=== PATIENT | female | born 1930 | race Caucasian/White ===

== ENCOUNTER → 2016-07-24 | Outpatient (CLI) | payer MEDICARE, BC, MEDICAID ==
--- NOTE | 2016-07-24 13:44 | WOMENS IMAGING REPORT ---
EXAM DESCRIPTION: BONE DENSITY HIP/SPINE COMPLETED DATE/TIME: 07/24/2016 1:33 pm REASON FOR STUDY: M81.0 OSTEO M81.0 AGE-RELATED OSTEOPOROSIS W/O CURRENT PATHOLOGICAL FRAC F02.80 DEMENTIA IN OTH DISEASES CLASSD ELSWHR W/O BEHAVRL DI COMPARISON: 04/22/2011. TECHNIQUE: Dual-Energy X-ray Absorptiometry (DEXA) of the AP Spine and Hip. LIMITATIONS: None. FINDINGS: LUMBAR SPINE: The bone mineral density (BMD) measured from L1-L4 in the AP projection correlates with a T-score of -2.0, which is osteopenia as defined by the World Health Organization. HIP: The bone mineral density (BMD) measured in the left hip correlates with a T-score of -3.2, which is o steoporosis as defined by the World Health Organization. COMMENT: The World Health Organization defines low BMD as follows: T-score: Normal: Greater than -1.0 Osteopenia: Between -1.0 and -2.5 Osteoporosis: Less than -2.5 without fractures Established osteoporosis: Less than -2.5 with fractures In general, you may wish to consider: Diagnosis Treatment Follow-up DEXA Normal BMD Prevention 2-3 years Osteopenia Prevention/Therapy 1-2 years Osteoporosis Therapy Yearly TECHNICAL DOCUMENTATION: JOB ID: [id number]- All Rights Reserved
== END ==
LOC: WI 12:02
PROVIDERS: ATTEND Family Medicine
DX: F02.80 Dementia in other diseases classified elsewhere, unspecified severity, without behavioral disturbance, psychotic disturbance, mood disturbance, and anxiety (principal); M81.0 Age-related osteoporosis without current pathological fracture
CPT/HCPCS: 70551; 77080

== ENCOUNTER → 2017-04-15 | Outpatient (CLI) | payer MEDICARE, BC, MEDICAID ==
--- NOTE | 2017-04-15 16:18 | RADIOLOGY REPORT (SQ) ---
EXAM DESCRIPTION: KNEE RIGHT 4 VIEWS COMPLETED DATE/TIME: 04/15/2017 3:52 pm REASON FOR STUDY: PAIN IN RIGHT KNEE M25.561 PAIN IN RIGHT KNEE COMPARISON: None. NUMBER OF VIEWS: Four views. TECHNIQUE: AP, lateral, and both oblique radiographic images acquired of the right knee. LIMITATIONS: None. FINDINGS: MINERALIZATION: Osteopenia. BONES: No acute fracture or dislocation. No worrisome bone lesions. JOINT: Joint space narrowing all 3 compartments. No effusion. SOFT TISSUES: No soft tissue swelling. No radio-opaque foreign body. OTHER: No other significant finding. IMPRESSION: No acute findings. Osteoarthritis. TECHNICAL DOCUMENTATION: JOB ID: [id number] [employer]- All Rights Reserved
== END ==
LOC: OD 15:21
PROVIDERS: ATTEND Family Medicine
DX: M25.561 Pain in right knee (principal)

== ENCOUNTER 2017-04-21 12:29 | Emergency (ER) | payer MEDICARE, BC, MEDICAID ==
--- NOTE | 2017-04-21 14:27 | RADIOLOGY REPORT (SQ) ---
EXAM DESCRIPTION: HIP RIGHT AP/LATERAL COMPLETED DATE/TIME: 04/21/2017 2:08 pm REASON FOR STUDY: fall COMPARISON: Right hip films 01/02/2014 AP pelvis film 02/16/2007 NUMBER OF VIEWS: Two views. TECHNIQUE: AP pelvis and additional frog-leg view of the right hip. LIMITATIONS: None. FINDINGS: MINERALIZATION: Osteopenic RIGHT HIP: No acute fracture or malalignment. Mild chondrocalcinosis at the right hip joint. No sig nificant joint space narrowing. No bulky bony spurring. LEFT HIP: No fracture or dislocation. No worrisome bone lesions. PUBIS AND ISCHIUM: No fracture. PELVIS: No fracture. SACRUM: No fracture or dislocation. No worrisome bone lesions. LOWER LUMBAR SPINE: Disc space loss of height at L4-5 and L5-S1 SOFT TISSUES: Fat necrosis or injection granuloma left buttock projected over the left hip joint spac e. 12.5 cm calcified uterine fibroid OTHER: No other significant finding. IMPRESSION: Bones osteopenic. No acute fracture right hip or hemipelvis. TECHNICAL DOCUMENTATION: JOB ID: [id number]- All Rights Reserved
--- NOTE | 2017-04-21 14:30 | RADIOLOGY REPORT (SQ) ---
EXAM DESCRIPTION: KNEE RIGHT 3 VIEWS COMPLETED DATE/TIME: 04/21/2017 2:08 pm REASON FOR STUDY: fall COMPARISON: None. NUMBER OF VIEWS: Three views. TECHNIQUE: AP, lateral, and sunrise patella radiographic images acquired of the right knee. LIMITATIONS: None. FINDINGS: MINERALIZATION: Osteopenic BONES: No acute fracture or dislocation. No worrisome bone lesions. JOINT: No effusion. SOFT TISSUES: No soft tissue swelling. No radio-opaque foreign body. OTHER: No other significant finding. IMPRESSION: NEGATIVE STUDY OF THE RIGHT KNEE. NO RADIOGRAPHIC EVIDENCE OF ACUTE INJURY. TECHNICAL DOCUMENTATION: JOB ID: [id number] [employer]- All Rights Reserved
--- NOTE | 2017-04-21 14:47 | ER Document Report ---
ED Fall - General Chief Complaint: Fall Injury Stated Complaint: RIGHT KNEE PAIN Time Seen by Provider: 04/21/17 13:05 Notes: Patient fell this morning landing on her right hip. She was able to stand with assistance and take a step or 2, but it was obvious that she had too much pain to continue so the family brought her here to be checked. She has had chronic problem with the right knee and was scheduled to see Dr. Robles this afternoon. Family is here with the patient is answering questions because the patient has some moderate to severe dementia and is unable to answer accurately for herself. Patient's family says that she did not hit her head and no loss of consciousness. The fall was witnessed. No apparent breathing difficulty or rib pains. No abdominal pains. No back pain. TRAVEL OUTSIDE OF THE [place] IN LAST 30 DAYS: No - Related data Allergies/Adverse Reactions: No Known Allergies Allergy (Verified 04/21/17 12:40) Home Medications: Current Home Medications Diclofenac Sodium [Diclofenac Sodium] 4 gm TOP QID 04/21/17 [History] Metoprolol Tartrate [Lopressor 25 mg Tablet] 25 mg PO Q12 04/21/17 [History] [place]-3 Fatty Acids/Fish Oil [Fish Oil 1,000 mg Capsule] 1,000 mg PO DAILY 04/21 [History] Past Medical History - Social History Smoking Status: Never Smoker Frequency of alcohol use: None Drug Abuse: None Family History: Reviewed & Not Pertinent - Past Medical History Cardiac Medical History: Reports: Hx Hypertension - CONTROLLED Neurological Medical History: Reports: Other - Dementia. Denies: Hx Cerebrovascular Accident, Hx Seizures Endocrine Medical History: Denies: Hx Diabetes Mellitus Type 2 GI Medical History: Denies: Hx Hepatitis, Hx Hiatal Hernia, Hx Ulcer Infectious Medical History: Denies: Hx Hepatitis Past Surgical History: Reports: Hx Mastectomy - LUMPECTOMY NO RESTRICTIONS. Denies: Hx Open Heart Surgery, Hx Pacemaker Review of Systems - Review of Systems Constitutional: denies: Fever Cardiovascular: denies: Chest pain, Dizziness Respiratory: denies: Cough, Hurts to breathe, Short of breath Gastrointestinal: denies: Abdominal pain, Nausea, Vomiting Musculoskeletal: See HPI Skin: No symptoms reported Neurological/Psychological: Confusion, Dementia Physical Exam - Vital signs Vitals: Temp Pulse Resp BP Pulse Ox 98.3 F 51 L 20 121/66 97 04/21/17 12:40 04/21/17 12:40 04/21/17 12:40 04/21/17 12:40 04/21/17 12:40 Interpretation: Normal - Notes Notes: PHYSICAL EXAMINATION: GENERAL: Well-appearing, in no acute distress. Resting comfortably sitting on the stretcher. HEAD: Atraumatic, normocephalic. NECK: Normal range of motion, supple. No posterior tenderness. No tenderness to move the head and neck in either direction. LUNGS: Breath sounds clear and equal bilaterally. No rib tenderness. HEART: Regular rate and rhythm without murmurs. ABDOMEN: Soft, nontender. No guarding or rebound. BACK: No tenderness throughout entire back. EXTREMITIES: Patient has tenderness over the right greater trochanter and somewhat back into the right buttock region. No pelvic tenderness.. NEUROLOGICAL: Patient cannot follow commands so it is difficult to assess her neurologic function. She is awake and alert, but does not answer questions just shakes her head yes frequently. Unable to follow commands. Moves all 4 extremities without any difficulty. Grossly intact neurological exam. SKIN: Warm, dry, no rashes. Course - Re-evaluation Re-evalutation: 04/21/17 14:37 X-rays are without acute findings. - Vital Signs Vital signs: Temp Pulse Resp BP Pulse Ox 98.5 F 68 16 129/76 H 100 04/21/17 14:50 04/21/17 14:50 04/21/17 14:50 04/21/17 14:50 04/21/17 14:50 - Diagnostic Test Radiology results interpreted by me: 04/21/17 14:37 X-ray of the right hip and the right pelvis show no fractures or dislocations. X-ray of the right knee shows arthritic changes but no other significant findings. Discharge - Discharge Clinical Impression: Contusion of right hip Condition: Stable Disposition: HOME, SELF-CARE Additional Instructions: CONTUSION Right Hip: Your injury has resulted in a contusion -- a crushing of the deep tissues. No injury to important structures was detected during the physician's exam. Contusions vary in the amount of pain they cause, and in the length of time required for healing. Typically, the area will become bruised, and will remain painful to touch for two or three weeks. However, most patients are back to working and playing within a few days. After the initial period of rest and cold-packs, your symptoms (together with the doctor's recommendations) will determine how rapidly you can get back to full activity. Usually this means "do what feels okay, but don't do things that hurt." If re-examination was recommended, it's important to follow up as instructed. Call the doctor or return any time if pain increases, if swelling becomes severe, if you develop numbness or weakness in an injured extremity, or if any other alarming symptoms occur. USE OF TYLENOL (ACETAMINOPHEN): Acetaminophen may be taken for pain relief or fever control. It's much safer than aspirin, offering a wider range of "safe" dosages. It is safe during . Some brand names are Tylenol, Panadol, Datril, Anacin 3, Tempra, and Liquiprin. Acetaminophen can be repeated every four hours. The following are maximum recommended dosages: WEIGHT Dose Drops Elixir Chewable( 80mg) (LBS.) drprs=droppers tsp=teaspoon >89 pounds or adults 650 mg to 900 mg Acetaminophen can be repeated every four hours. Maximum dose not to exceed 4000 mg a day. These maximum recommended dosages are slightly higher than the dosages written on the product container, but these dosages are very safe and below the toxic dosage for acetaminophen. Keep your appointment to be seen about your right knee and they can check your right hip as well. FOLLOW-UP CARE: If you have been referred to a physician for follow-up care, call the physician s office for an appointment as you were instructed or within the next two days. If you experience worsening or a significant change in your symptoms, notify the physician immediately or return to the Emergency Department at any time for re-evaluation. Referrals: DIANE ROBLES MD [Primary Care Provider] - Follow up as needed
[2017-04-21 14:51] VITALS: BP 129/76
== END 2017-04-21 14:55 | disposition home or self-care (01) ==
LOC: ER 12:29
DX: S70.01XA Contusion of right hip, initial encounter (principal); W19.XXXA Unspecified fall, initial encounter; M25.561 Pain in right knee; F03.90 Unspecified dementia, unspecified severity, without behavioral disturbance, psychotic disturbance, mood disturbance, and anxiety; I10 Essential (primary) hypertension
CPT/HCPCS: 99283

== ENCOUNTER → 2017-06-25 | Outpatient (CLI) | payer MEDICARE, BC, MEDICAID ==
--- NOTE | 2017-06-25 18:14 | RADIOLOGY REPORT (SQ) ---
EXAM DESCRIPTION: CHEST PA/LATERAL COMPLETED DATE/TIME: 06/25/2017 5:34 pm REASON FOR STUDY: CHEST PAIN, UNSPECIFIED COMPARISON: None. EXAM PARAMETERS: NUMBER OF VIEWS: two views TECHNIQUE: Digital Frontal and Lateral radiographic views of the chest acquired. RADIATION DOSE: NA LIMITATIONS: none FINDINGS: LUNGS AND PLEURA: No consolidation, masses or pneumothorax. No pleural effusion. MEDIASTINUM AND HILAR STRUCTURES: Small hiatus hernia. HEART AND VASCULAR STRUCTURES: Heart upper limits of normal size. No evidence for failure. BONES: No acute findings. HARDWARE: None in the chest. OTHER: No other significant finding. IMPRESSION: No acute findings. TECHNICAL DOCUMENTATION: JOB ID: [id number] [place]-72 2010 [employer]- All Rights Reserved
[2017-06-25 18:17] LABS: ABSOLUTE BASOPHILS # (AUTO) 0.1 10^3/uL (0.0-0.2); ABSOLUTE EOSINOPHILS # (AUTO) 0.3 10^3/uL (0.0-0.6); ABSOLUTE LYMPHOCYTES (AUTO) 3.3 10^3/uL (0.5-4.7); ABSOLUTE MONOCYTES (AUTO) 0.9 10^3/uL (0.1-1.4); ABSOLUTE NEUT (AUTO) 5.7 10^3/uL (1.7-8.2); BASOPHILS % (AUTO) 0.6 % (0-2); EOSINOPHILS % (AUTO) 2.8 % (0-6); HEMATOCRIT 38.8 % (36.0-47.0); HEMOGLOBIN 12.9 g/dL (12.0-15.5); LYMPHOCYTES % (AUTO) 32.7 % (13-45); MEAN CORPUSCULAR HEMOGLOBIN 30.2 pg (27.0-33.4); MEAN CORPUSCULAR HGB CONC 33.2 g/dL (32.0-36.0); MEAN CORPUSCULAR VOLUME 91 fl (80-97); MONOCYTES % (AUTO) 8.5 % (3-13); PLATELET COUNT 334 10^3/uL (150-450); RED BLOOD COUNT 4.26 10^6/uL (3.72-5.28); RED CELL DISTRIBUTION WIDTH 13.6 % (11.5-14.0); SEGMENTED NEUTROPHILS % (AUTO) 55.4 % (42-78); TOTAL CELLS COUNTED % (AUTO) 100 %; WHITE BLOOD COUNT 10.2 10^3/uL (4.0-10.5)
--- NOTE | 2017-06-25 18:17 | RADIOLOGY REPORT (SQ) ---
EXAM DESCRIPTION: RIBS RIGHT W/O PA CHEST COMPLETED DATE/TIME: 06/25/2017 5:34 pm REASON FOR STUDY: CHEST PAIN, UNSPECIFIED R07.9 CHEST PAIN, UNSPECIFIED COMPARISON: None. NUMBER OF VIEWS: 2 TECHNIQUE: Images acquired of the right ribs in the area of focal concern. LIMITATIONS: None. FINDINGS: RIBS: No acute displaced fracture. No worrisome bone lesions. LUNGS: No pneumothorax. No pleural effusion. OTHER: No other significant finding. IMPRESSION: NO ACUTE DISPLACED RIB FRACTURE. COMMENT: SITE OF TRAUMA/COMPLAINT MARKED/STAMP COMPLETED: No TECHNICAL DOCUMENTATION: JOB ID: [id number] [place]-72 2010 [employer]- All Rights Reserved
[2017-06-25 18:34] LABS: ALANINE AMINOTRANSFERASE 19 U/L (9-52); ALBUMIN 4.7 g/dL (3.5-5.0); ALKALINE PHOSPHATASE 79 U/L (38-126); ANION GAP 15 (5-19); ASPARTATE AMINO TRANSFERASE 25 U/L (14-36); BILIRUBIN,DIRECT 0.3 mg/dL (0.0-0.4); BILIRUBIN,TOTAL 0.3 mg/dL (0.2-1.3); BLOOD UREA NITROGEN 21 mg/dL (7-20); CARBON DIOXIDE 27 mmol/L (22-30); CHLORIDE 101 mmol/L (98-107); GLUCOSE 75 mg/dL (75-110); POTASSIUM 4.3 mmol/L (3.6-5.0); SODIUM 142.6 mmol/L (137-145); TOTAL PROTEIN 8.5 g/dL (6.3-8.2)
== END ==
LOC: OD 16:54
PROVIDERS: ATTEND Physician Assistant
DX: R07.9 Chest pain, unspecified (principal)
CPT/HCPCS: 36415; 71020; 80053; 85025; 85379

== ENCOUNTER → 2017-06-26 | Outpatient (CLI) | payer MEDICARE, BC, MEDICAID ==
--- NOTE | 2017-06-26 11:12 | RADIOLOGY REPORT (SQ) ---
EXAM DESCRIPTION: NM LUNG VENT/PERF SCAN COMPLETED DATE/TIME: 06/26/2017 10:57 am REASON FOR STUDY: R79.89 OTHER SPECIFIED ABNORMAL FINDINGS OF BLOOD CHEMISTRY R79.89 OTHER SPECIFIE D ABNORMAL FINDINGS OF BLOOD CHEMISTRY COMPARISON: Chest and rib detail films 06/25/2017 RADIONUCLIDE AND DOSE: 5.5 millicuries TC-99m MAA Intravenous 32.4 millicuries TC-99m DTPA Inhaled aerosol TECHNIQUE: Eight views of the lungs acquired post ventilation of DTPA aerosol. Eight matching views of the lungs acquired following injection of MAA. LIMITATIONS: None. FINDINGS: VENTILATION: Symmetric and homogeneous distribution of DTPA aerosol during ventilatory pha se. No significant areas of photopenia. There is clumping of activity in the carlton, and some swallow ed activity in the esophagus and small bowel PERFUSION: Perfusion images with normal homogenous activity and no wedge-shaped or segmental defects. No ventilation-perfusion mismatches. OTHER: No other significant finding. IMPRESSION: NORMAL VENTILATION-PERFUSION LUNG SCAN. NEGATIVE FOR PULMONARY EMBOLI. TECHNICAL DOCUMENTATION: JOB ID: [id number] [employer]- All Rights Reserved
== END ==
LOC: RAD 10:21
PROVIDERS: ATTEND Physician Assistant
DX: R79.89 Other specified abnormal findings of blood chemistry (principal)
CPT/HCPCS: 78582; A9540; A9567; Q9969

== ENCOUNTER → 2017-07-30 | Outpatient (CLI) | payer MEDICARE, BC ==
--- NOTE | 2017-07-30 16:33 | RADIOLOGY REPORT (SQ) ---
EXAM DESCRIPTION: CT ABD/PELVIS NO ORAL OR IV COMPLETED DATE/TIME: 07/30/2017 10:55 am REASON FOR STUDY: GROSS HEMATURIA (R31.0) R31.0 GROSS HEMATURIA COMPARISON: None. TECHNIQUE: CT scan of the abdomen and pelvis performed without intravenous or oral contrast. Images reviewed with lung, soft tissue, and bone windows. Reconstructed coronal and sagittal MPR images revi ewed. All images stored on PACS. All CT scanners at this facility use dose modulation, iterative reconstruction, and/or weight based d osing when appropriate to reduce radiation dose to as low as reasonably achievable (ALARA). [facility]: Dose Right [facility]: CareDose [facility]: Dose Right [facility]: Teradose 4D [facility]: Smart [employer] RADIATION DOSE: CT Rad equipment meets quality standard of care and radiation dose reduction techniq ues were employed. CTDIvol: 7.5 mGy. DLP: 338 mGy-cm.mGy. LIMITATIONS: None. FINDINGS: LOWER CHEST: Chronic interstitial changes in lung bases. Coronary artery calcification. Prominent left atrium and left ventricle. NON-CONTRASTED LIVER, SPLEEN, ADRENALS: Evaluation limited by lack of IV contrast. No identified sign ificant masses. Splenic granuloma PANCREAS: No masses. No peripancreatic inflammatory changes. GALLBLADDER: No identified stones by CT criteria. No inflammatory changes to suggest cholecystitis. RIGHT KIDNEY AND URETER: Cortical scarring of the right kidney. Right kidney measures 6.7 cm in bhavin th. No renal or ureteral calculi. LEFT KIDNEY AND URETER: Cortical scarring left kidney. . Left kidney measures 7.4 cm in length. No renal or ureteral calculi. AORTA AND RETROPERITONEUM: Atherosclerotic tortuosity of the abdominal aorta and iliac vessels. No a bdominal aortic aneurysm. Atherosclerotic change origin of renal arteries. Atherosclerotic change a t origin of celiac and superior mesenteric arteries. BOWEL AND PERITONEAL CAVITY: Colonic diverticulosis. Large hiatal hernia. APPENDIX: Normal. PELVIS, BLADDER, AND ABDOMINAL WALL:Atrophic fibroid uterus. No abnormality of the urinary bladder. . BONES: Marked lumbar spondylosis with scoliosis convex right. Multilevel degenerative disc disease. OTHER: Calcified injection granuloma left buttock. IMPRESSION: Small bilateral kidneys with cortical scarring. Colonic diverticulosis. COMMENT: Quality ID # 436: Final reports with documentation of one or more dose reduction techniques (e.g., Automated exposure control, adjustment of the mA and/or kV according to patient size, use of iterative reconstruction technique) TECHNICAL DOCUMENTATION: JOB ID: [id number] [place]-69 2010 [employer]- All Rights Reserved
== END ==
LOC: RAD 10:42
PROVIDERS: ATTEND Physician Assistant
DX: R31.0 Gross hematuria (principal)
CPT/HCPCS: 74176

== ENCOUNTER → 2018-02-01 | Outpatient (CLI) | payer MEDICARE, BC ==
[2018-02-01 15:49] LABS: HEMATOCRIT 34.6 % (36.0-47.0); HEMOGLOBIN 11.3 g/dL (12.0-15.5); MEAN CORPUSCULAR HEMOGLOBIN 30.4 pg (27.0-33.4); MEAN CORPUSCULAR HGB CONC 32.8 g/dL (32.0-36.0); MEAN CORPUSCULAR VOLUME 93 fl (80-97); PLATELET COUNT 261 10^3/uL (150-450); RED BLOOD COUNT 3.73 10^6/uL (3.72-5.28); RED CELL DISTRIBUTION WIDTH 13.6 % (11.5-14.0); WHITE BLOOD COUNT 7.1 10^3/uL (4.0-10.5)
[2018-02-01 16:14] LABS: ANION GAP 13 (5-19); BLOOD UREA NITROGEN 29 mg/dL (7-20); CALCIUM 9.1 mg/dL (8.4-10.2); CARBON DIOXIDE 21 mmol/L (22-30); CHLORIDE 108 mmol/L (98-107); GLUCOSE 86 mg/dL (75-110); POTASSIUM 5.2 mmol/L (3.6-5.0); SODIUM 141.9 mmol/L (137-145)
[2018-02-03 09:33] LABS: APPEARANCE,URINE CLOUDY; BILIRUBIN,URINE NEGATIVE (NEGATIVE); COLOR,URINE YELLOW; GLUCOSE, URINE NEGATIVE (NEGATIVE); KETONES,URINE NEGATIVE (NEGATIVE); LEUKOCYTE ESTERASE,URINE LARGE (NEGATIVE); NITRITE,URINE POSITIVE (NEGATIVE); PROTEIN,URINE NEGATIVE (NEGATIVE); URINE SPECIFIC GRAVITY 1.013; UROBILINOGEN,URINE NEGATIVE mg/dL (<2.0)
== END ==
LOC: OD 14:55
PROVIDERS: ATTEND Internal Medicine Nephrology
DX: I12.9 Hypertensive chronic kidney disease with stage 1 through stage 4 chronic kidney disease, or unspecified chronic kidney disease (principal); N18.3 Chronic kidney disease, stage 3 (moderate); E87.5 Hyperkalemia; N39.0 Urinary tract infection, site not specified
CPT/HCPCS: 36415; 80048; 81001; 85027; 87086; 87088; 87186

== ENCOUNTER → 2018-02-23 | Outpatient (CLI) | payer MEDICARE, BC, MEDICAID ==
--- NOTE | 2018-02-23 16:05 | RADIOLOGY REPORT (SQ) ---
EXAM DESCRIPTION: CT HEAD WITHOUT COMPLETED DATE/TIME: 02/23/2018 3:51 pm REASON FOR STUDY: R42 DIZZINESS AND GIDDINESS R42 DIZZINESS AND GIDDINESS COMPARISON: MRI dated 07/24/2016 TECHNIQUE: Axial images acquired through the brain without intravenous contrast. Images reviewed wi th bone, brain and subdural windows. Images stored on PACS. All CT scanners at this facility use dose modulation, iterative reconstruction, and/or weight based d osing when appropriate to reduce radiation dose to as low as reasonably achievable (ALARA). [facility]: Dose Right [facility]: CareDose [facility]: Dose Right [facility]: Teradose 4D [facility]: Smart [email or web address] RADIATION DOSE: CT Rad equipment meets quality standard of care and radiation dose reduction techniq ues were employed. CTDIvol: 48.6 mGy. DLP: 905 mGy-cm.mGy. LIMITATIONS: None. FINDINGS: VENTRICLES: Prominent. CEREBRUM: No masses. No hemorrhage. No midline shift. Areas of low density in the white matter mos t likely due to chronic micro-vascular ischemic change. No evidence for acute infarction. CEREBELLUM: No masses. No hemorrhage. No alteration of density. No evidence for acute infarction. EXTRAAXIAL SPACES: Age-related involutional change. No fluid collections. No masses. ORBITS AND GLOBE: No intra- or extraconal masses. Normal contour of globe without masses. CALVARIUM: No fracture. PARANASAL SINUSES: No fluid or mucosal thickening. SOFT TISSUES: No mass or hematoma. OTHER: No other significant finding. IMPRESSION: CHRONIC CHANGES OF ATROPHY AND MICROVASCULAR ISCHEMIA. NO ACUTE PROCESS. EVIDENCE OF ACUTE STROKE: NO. TECHNICAL DOCUMENTATION: JOB ID: [id number] Quality ID # [id number]: Final reports with documentation of one or more dose reduction techniques (e.g., Au tomated exposure control, adjustment of the mA and/or kV according to patient size, use of iterative reconstruction technique) 2010 [employer]- All Rights Reserved Reading location - IP/workstation name: [email or web address]
== END ==
LOC: RAD 17:29
PROVIDERS: ATTEND Family Medicine
DX: R42 Dizziness and giddiness (principal); G31.9 Degenerative disease of nervous system, unspecified
CPT/HCPCS: 70450

== ENCOUNTER → 2018-02-24 | Outpatient (CLI) | payer MEDICARE, BC, MEDICAID ==
[2018-02-24 14:12] LABS: ABSOLUTE EOSINOPHILS # (AUTO) 0.3 10^3/uL (0.0-0.6); ABSOLUTE LYMPHOCYTES (AUTO) 1.5 10^3/uL (0.5-4.7); ABSOLUTE MONOCYTES (AUTO) 0.7 10^3/uL (0.1-1.4); ABSOLUTE NEUT (AUTO) 6.2 10^3/uL (1.7-8.2); BASOPHILS % (AUTO) 0.4 % (0-2); EOSINOPHILS % (AUTO) 3.7 % (0-6); HEMATOCRIT 37.1 % (36.0-47.0); LYMPHOCYTES % (AUTO) 17.4 % (13-45); MEAN CORPUSCULAR HEMOGLOBIN 30.1 pg (27.0-33.4); MEAN CORPUSCULAR HGB CONC 32.2 g/dL (32.0-36.0); MEAN CORPUSCULAR VOLUME 93 fl (80-97); MONOCYTES % (AUTO) 7.7 % (3-13); PLATELET COUNT 233 10^3/uL (150-450); RED BLOOD COUNT 3.97 10^6/uL (3.72-5.28); RED CELL DISTRIBUTION WIDTH 13.4 % (11.5-14.0); SEGMENTED NEUTROPHILS % (AUTO) 70.8 % (42-78); TOTAL CELLS COUNTED % (AUTO) 100 %; WHITE BLOOD COUNT 8.8 10^3/uL (4.0-10.5)
[2018-02-24 14:52] LABS: ERYTHROCYTE SEDIMENTATION RATE 41 mm/hr (0-30)
== END ==
LOC: OD 12:31
PROVIDERS: ATTEND Ophthalmology
DX: H46.01 Optic papillitis, right eye (principal)
CPT/HCPCS: 36415; 85025; 85652; 86140

== ENCOUNTER 2018-03-09 08:29 | Day surgery (SDC) | payer MEDICARE, BC, MEDICAID ==
[2018-03-08 11:20] LABS: ANION GAP 9 (5-19); BLOOD UREA NITROGEN 38 mg/dL (7-20); CALCIUM 9.2 mg/dL (8.4-10.2); CARBON DIOXIDE 26 mmol/L (22-30); CHLORIDE 106 mmol/L (98-107); GLUCOSE 113 mg/dL (75-110); POTASSIUM 3.7 mmol/L (3.6-5.0); SODIUM 141.3 mmol/L (137-145)
--- NOTE | 2018-03-08 23:02 | EKG REPORT ---
SEVERITY:- ABNORMAL ECG - SINUS BRADYCARDIA LEFT VENTRICULAR HYPERTROPHY BORDERLINE T ABNORMALITIES, INFERIOR LEADS : Confirmed by: Farhad Estrada 08-Mar-2018 23:01:17
[~2018-03-09 08:29] MED LIST: BUPIVACAINE HCL 0.5 % INJ/PF 30 ML SDV ONE; LIDOCAINE 0.5% INJ-PF (5 MG/ML) 50 ML SDV ONE; LIDOCAINE 0.5% INJ-PF (5 MG/ML) 50 ML SDV SUBCUT PRN; NORMAL SALINE 1000 ML (RENAL PATIENTS) IV PRN
[2018-03-09] MEDS ORDERED: FENTANYL CITRATE INJ/PF 100 MCG/2 ML AMPUL ONE (09:14)
[2018-03-09] MEDS ORDERED: MIDAZOLAM 2 MG/2 ML INJ ONE (09:14)
[2018-03-09] MEDS ORDERED: PROPOFOL INJ 200 MG/20 ML VIAL IV ONE (09:14)
[2018-03-09] MEDS ORDERED: PROMETHAZINE HCL INJ 25 MG/1 ML VIAL IV PRN ×2 (10:21)
[2018-03-09] MEDS ORDERED: OXYCODONE-ACETAMINOPHEN 5-325 MG TABLET PO PRN ×2 (10:21)
[2018-03-09] MEDS ORDERED: MEPERIDINE HCL/PF INJ 25 MG/1 ML DISP.SYRIN IV PRN (10:21)
[2018-03-09] MEDS ORDERED: DIPHENHYDRAMINE HCL 50 MG/ML VIAL IV PRN (10:21)
[2018-03-09] MEDS ORDERED: MORPHINE SULFATE 10 MG/ML INJ IV PRN (10:21)
[2018-03-09] MEDS ORDERED: ONDANSETRON HCL INJ/PF 4 MG/2 ML SDV IV PRN (10:21)
[2018-03-09] MEDS ORDERED: FENTANYL CITRATE INJ/PF 100 MCG/2 ML AMPUL IV PRN ×3 (10:21)
--- NOTE | 2018-03-09 11:34 | Discharge Summary ---
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 2. Hypertension Date of Surgery: 03/09/18 Discharge Date: 03/09/18 Condition: Fair Treatment or Instructions: Discharge home [after recovery per ASU criteria]. Diet,as tolerated, when fully awake advance as tolerated. Activities within moderation encouraged. Follow up in my office by appointment in about [1 week]. Call for appointment. Leave wounds [covered], [keep clean and dry, until office visit in 1 week]. Hold of on school/work [until evaluation in office]. Meds per med rec. Percocet. May shower [in 48 hrs], [try to keep operated area as dry as possible]. Prescriptions: Oxycodone HCl/Acetaminophen [Percocet 5-325 mg Tablet] 1 tab PO ASDIR PRN #5 tab PRN Reason: Referrals: DIANE ROBLES MD [Primary Care Provider] - Discharge Diet: As Tolerated Respiratory Treatments at Home: Deep Breathing/Coughing Discharge Activity: Activity As Tolerated Report the Following to Your Physician Immediately: Unusual Bleeding
--- NOTE | 2018-03-09 11:36 | Operative Report ---
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 2. 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 2. Hypertension OPERATION: Right temporal artery biopsy. SURGEON: YEHUDA KNAPP MANAGER SAS: None. ANESTHESIA: LMAC TISSUE REMOVED OR ALTERED: Portion of the right temporal artery. COMPLICATIONS: None. ESTIMATED BLOOD LOSS: 5 mL. INTRAOPERATIVE FINDINGS: Of an extremely small and tortuous temporal artery. About 2.5 cm were harvested for pathology evaluation. It proved difficult to find this temporal artery because of its small size. Use of a Doppler was of significant help. PROCEDURE: PROCEDURE: The right temporal area was prepared with [chlorhexidine] and draped out with sterile linen. After the"universal time-out", in which it was confirmed that the patient [did not need antibiotic], the procedure commenced. The patient was appropriately anesthetized. The topographic location of the temporal artery was identified using a Doppler instrument and also palpation. It was marked in ink.. A dilute solution of local anesthesia was generously infiltrated in the skin and subcutaneous tissues above and around the area. An incision was made as marked. This went through to the subcutaneous tissues. Dissection now proceeded By spreading a hemostat to reveal the artery beneath the fascia. The artery was dissected out for a distance of about 2.5 cm. Both ends were clamped. The intervening section was excised and carefully submitted for pathology in formalin. Both ends were now suture ligated using 5-0 Prolene suture The wound was now closed using [a single layer of interrupted sutures. These were of 5-0 Prolene. A sterile dressing was applied and the procedure concluded.
[2018-03-09] MEDS ORDERED: OXYCODONE-ACETAMINOPHEN 5-325 MG TABLET ONE (12:32)
[2018-03-09] MEDS ORDERED: OXYCODONE-ACETAMINOPHEN 5-325 MG TABLET PO ONE ×2 (12:35→13:45)
[2018-03-09 13:46] VITALS: BP 144/66
== END 2018-03-09 13:40 | disposition home or self-care (01) ==
LOC: OROUT 08:29
PROVIDERS: ATTEND Surgery
DX: H54.7 Unspecified visual loss (principal); I10 Essential (primary) hypertension; Z79.899 Other long term (current) drug therapy; M19.90 Unspecified osteoarthritis, unspecified site
CPT/HCPCS: 93005; 36415; 82962; 80048; 88305 ×2; 93010; 37609; J2250; J3490 ×2; J3010; A9270; J2704; 352

== ENCOUNTER 2018-03-30 12:37 | Emergency (ER) | payer MEDICARE, BC, MEDICAID ==
[2018-03-30 13:15] LABS: ABSOLUTE LYMPHOCYTES (AUTO) 0.8 10^3/uL (0.5-4.7); ABSOLUTE MONOCYTES (AUTO) 0.7 10^3/uL (0.1-1.4); ABSOLUTE NEUT (AUTO) 9.7 10^3/uL (1.7-8.2); BASOPHILS % (AUTO) 0.1 % (0-2); EOSINOPHILS % (AUTO) 0.2 % (0-6); HEMATOCRIT 38.3 % (36.0-47.0); HEMOGLOBIN 12.5 g/dL (12.0-15.5); LYMPHOCYTES % (AUTO) 7.1 % (13-45); MEAN CORPUSCULAR HEMOGLOBIN 30.8 pg (27.0-33.4); MEAN CORPUSCULAR HGB CONC 32.6 g/dL (32.0-36.0); MEAN CORPUSCULAR VOLUME 95 fl (80-97); PLATELET COUNT 155 10^3/uL (150-450); RED BLOOD COUNT 4.05 10^6/uL (3.72-5.28); RED CELL DISTRIBUTION WIDTH 14.4 % (11.5-14.0); SEGMENTED NEUTROPHILS % (AUTO) 86.6 % (42-78); TOTAL CELLS COUNTED % (AUTO) 100 %; WHITE BLOOD COUNT 11.2 10^3/uL (4.0-10.5)
[2018-03-30 13:39] LABS: ALANINE AMINOTRANSFERASE 24 U/L (9-52); ALBUMIN 3.2 g/dL (3.5-5.0); ALKALINE PHOSPHATASE 55 U/L (38-126); ANION GAP 10 (5-19); ASPARTATE AMINO TRANSFERASE 17 U/L (14-36); BILIRUBIN,DIRECT 0.4 mg/dL (0.0-0.4); BILIRUBIN,TOTAL 0.7 mg/dL (0.2-1.3); BLOOD UREA NITROGEN 33 mg/dL (7-20); CALCIUM 8.9 mg/dL (8.4-10.2); CARBON DIOXIDE 23 mmol/L (22-30); CHLORIDE 104 mmol/L (98-107); GLUCOSE 324 mg/dL (75-110); POTASSIUM 3.4 mmol/L (3.6-5.0); SODIUM 136.6 mmol/L (137-145); TOTAL PROTEIN 5.8 g/dL (6.3-8.2)
[2018-03-30] MEDS ORDERED: NORMAL SALINE 500 ML IV ONE (14:30)
[2018-03-30 15:12] LABS: APPEARANCE,URINE CLOUDY; BILIRUBIN,URINE NEGATIVE (NEGATIVE); COLOR,URINE YELLOW; GLUCOSE, URINE 150 mg/dL (NEGATIVE); KETONES,URINE NEGATIVE (NEGATIVE); LEUKOCYTE ESTERASE,URINE LARGE (NEGATIVE); NITRITE,URINE NEGATIVE (NEGATIVE); PROTEIN,URINE 100 mg/dL (NEGATIVE); TRIPLE PHOSPHATE CRYSTAL,URINE FEW /HPF; URINE SPECIFIC GRAVITY 1.015; UROBILINOGEN,URINE NEGATIVE mg/dL (<2.0)
--- NOTE | 2018-03-30 15:32 | RADIOLOGY REPORT (SQ) ---
EXAM DESCRIPTION: CT HEAD WITHOUT COMPLETED DATE/TIME: 03/30/2018 3:17 pm REASON FOR STUDY: syncope COMPARISON: 02/23/2018 TECHNIQUE: Axial images acquired through the brain without intravenous contrast. Images reviewed wi th bone, brain and subdural windows. Additional sagittal and coronal reconstructions were generated. Images stored on PACS. All CT scanners at this facility use dose modulation, iterative reconstruction, and/or weight based d osing when appropriate to reduce radiation dose to as low as reasonably achievable (ALARA). [facility]: Dose Right [facility]: CareDose [facility]: Dose Right [facility]: Teradose 4D [facility]: Smart [employer] RADIATION DOSE: CT Rad equipment meets quality standard of care and radiation dose reduction techniq ues were employed. CTDIvol: 53.2 mGy. DLP: 1017 mGy-cm. LIMITATIONS: None. FINDINGS: VENTRICLES: Prominent ventricles commensurate with the sulci. The cisterns are patent. CEREBRUM: Chronic stable small vessel ischemic changes. No masses. No hemorrhage. No midline shif t. No evidence for acute infarction. CEREBELLUM: No masses. No hemorrhage. No alteration of density. No evidence for acute infarction. EXTRAAXIAL SPACES: Age related involutional change. No fluid collections. No masses. ORBITS AND GLOBE: No intra- or extraconal masses. Normal contour of globe without masses. CALVARIUM: No fracture. PARANASAL SINUSES: No fluid or mucosal thickening. SOFT TISSUES: No mass or hematoma. OTHER: Atherosclerotic changes involving the cavernous portion of the internal carotid arteries and the intracranial portions of the vertebral arteries. Incidentally, partial empty sella. IMPRESSION: 1. No significant interval changes since the prior examination dated 02/23/2018. No acu te intracranial abnormality. 2. Atrophy and chronic spur stable small vessel ischemic changes. EVIDENCE OF ACUTE STROKE: NO. COMMENT: Quality ID # 436: Final reports with documentation of one or more dose reduction techniques (e.g., Automated exposure control, adjustment of the mA and/or kV according to patient size, use of iterative reconstruction technique) TECHNICAL DOCUMENTATION: JOB ID: [id number] [employer]- All Rights Reserved Reading location - IP/workstation name: [email or web address]
--- NOTE | 2018-03-30 15:34 | RADIOLOGY REPORT (SQ) ---
EXAM DESCRIPTION: CHEST SINGLE VIEW COMPLETED DATE/TIME: 03/30/2018 3:18 pm REASON FOR STUDY: syncope COMPARISON: 06/25/2017 EXAM PARAMETERS: NUMBER OF VIEWS: One view. TECHNIQUE: Single frontal radiographic view of the chest acquired. RADIATION DOSE: NA LIMITATIONS: None. FINDINGS: LUNGS AND PLEURA: Low lung volumes limits the examination. No acute pulmonary consolidat ion. No pneumothorax or pleural effusion. MEDIASTINUM AND HILAR STRUCTURES: No masses. Contour normal. HEART AND VASCULAR STRUCTURES: Heart normal in size. Normal vasculature. BONES: No acute findings. HARDWARE: None in the chest. OTHER: Stable small hiatal hernia. IMPRESSION: 1. Low lung volumes limits examination. No acute findings. TECHNICAL DOCUMENTATION: JOB ID: [id number] [employer]- All Rights Reserved Reading location - IP/workstation name: [email or web address]
[2018-03-30] MEDS ORDERED: CEFTRIAXONE INJ 1000 MG VIAL IV ONE (15:46)
--- NOTE | 2018-03-30 17:36 | ER Document Report ---
ED General - General Chief Complaint: Syncope Stated Complaint: WEAKNESS Time Seen by Provider: 03/30/18 14:20 TRAVEL OUTSIDE OF THE [place] IN LAST 30 DAYS: No - HPI Patient complains to provider of: Syncope Notes: Patient coming in for syncopal episode. 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 Patient has a history of chronic UTIs along with current treatment of temporal arteritis with high-dose steroids. States that the patient has an appointment is see her PCP today because of elevated blood sugars however is not here in ER instead otherwise states no changes in her routine earlier this morning no changes in days no fevers no chills no nausea no vomiting no diarrhea. Patient is baseline upon my evaluation according to family members patient according to family members looks much better since being here in the ER. - Related Data Allergies/Adverse Reactions: No Known Allergies Allergy (Verified 03/08/18 09:38) Past Medical History - Social History Smoking Status: Unknown if Ever Smoked Family History: Reviewed & Not Pertinent Patient has suicidal ideation: No Patient has homicidal ideation: No - Past Medical History Cardiac Medical History: Reports: Hx Hypertension - CONTROLLED Denies: Hx Heart Attack Pulmonary Medical History: Denies: Hx Asthma, Hx Bronchitis, Hx COPD, Hx Pneumonia Neurological Medical History: Denies: Hx Cerebrovascular Accident, Hx Seizures Endocrine Medical History: Reports: Hx Diabetes Mellitus Type 2 Renal/ Medical History: Denies: Hx Peritoneal Dialysis GI Medical History: Denies: Hx Hepatitis, Hx Hiatal Hernia, Hx Ulcer Infectious Medical History: Denies: Hx Hepatitis Past Surgical History: Reports: Hx Mastectomy - LUMPECTOMY NO RESTRICTIONS. Denies: Hx Open Heart Surgery, Hx Pacemaker - Immunizations Hx Diphtheria, Pertussis, Tetanus Vaccination: No Hx Pneumococcal Vaccination: 03/29/17 Review of Systems - Review of Systems -: Yes ROS unobtainable due to patient's medical condition - History of dementia Physical Exam - Vital signs Vitals: Resp Pulse Ox 20 97 03/30/18 12:58 03/30/18 12:58 Interpretation: Normal - General General appearance: Appears well, Alert - HEENT Head: Normocephalic, Atraumatic Eyes: Normal Pupils: PERRL - Respiratory Respiratory status: No respiratory distress Chest status: Nontender Breath sounds: Normal Chest palpation: Normal - Cardiovascular Rhythm: Regular Heart sounds: Normal auscultation Murmur: No - Abdominal Inspection: Normal Distension: No distension Bowel sounds: Normal Tenderness: Nontender Organomegaly: No organomegaly - Back Back: Normal, Nontender - Extremities General upper extremity: Normal inspection, Nontender, Normal color, Normal ROM , Normal temperature General lower extremity: Normal inspection, Nontender, Normal color, Normal ROM , Normal temperature, Normal weight bearing. No: Lito's sign - Neurological Neuro grossly intact: Yes Cognition: Confused [place] Coma Scale Eye Opening: Spontaneous [place] Coma Scale Verbal: Confused [place] Coma Scale Motor: Obeys Commands [place] Coma Scale Total: 14 Speech: Normal Motor strength normal: LUE, RUE, LLE, RLE - Psychological Associated symptoms: Normal affect, Normal mood - Skin Skin Temperature: Warm Skin Moisture: Dry Skin Color: Normal Course - Re-evaluation Re-evalutation: 03/30/18 21:13 Urinalysis does show signs of urinary tract infection. Patient was given a dose of Rocephin will send patient home with Keflex. Elevated blood sugars with no signs of metabolic derangement. Patient's case was discussed with PCP recommend follows up in his office tomorrow. Family agrees with this plan patient will be discharged home - Vital Signs Vital signs: Temp Pulse Resp BP Pulse Ox 16 152/52 H 98 03/30/18 18:01 03/30/18 18:01 03/30/18 18:01 - Laboratory Result Diagrams: 03/30/18 12:57 03/30/18 12:57 Laboratory results interpreted by me: 03/30/18 03/30/18 03/30/18 12:57 12:57 14:46 WBC 11.2 H RDW 14.4 H Seg Neutrophils % 86.6 H Lymphocytes % 7.1 L Absolute Neutrophils 9.7 H Sodium 136.6 L Potassium 3.4 L BUN 33 H Creatinine 1.73 H Est GFR ( Amer) 34 L Est GFR (Non-Af Amer) 28 L Glucose 324 H Total Protein 5.8 L Albumin 3.2 L Urine Protein 100 H Urine Glucose (UA) 150 H Urine Blood SMALL H Ur Leukocyte Esterase LARGE H Discharge - Discharge Clinical Impression: Hyperglycemia Syncope Qualifiers: Syncope type: unspecified Qualified Code(s): R55 - Syncope and collapse UTI (urinary tract infection) Qualifiers: Urinary tract infection type: urethritis Qualified Code(s): N34.2 - Other urethritis Condition: Good Disposition: HOME, SELF-CARE Instructions: Cephalexin ([facility]), Syncopal Episode ([facility]), Urinary Tract Infection ([facility]) Additional Instructions: Laboratory studies show signs of urinary tract infection elevated blood sugars more likely due to your recent steroid use. I discussed your case with your primary care physician we will start you on antibiotic Keflex please have this antibiotic filled. Take as directed. Dr. Robles requested she follow-up in his office tomorrow I would suggest calling his office earlier in the morning and explained that she would need to be worked in for an exact time. Return to ER symptoms worsen please make sure the patient drinks plenty water stay well- hydrated Prescriptions: Cephalexin Monohydrate [Keflex 500 mg Capsule] 500 mg PO QID #28 capsule Referrals: DIANE ROBLES MD [Primary Care Provider] - Follow up tomorrow
[2018-03-30 19:01] VITALS: BP 152/52
--- NOTE | 2018-03-30 19:40 | EKG REPORT ---
SEVERITY:- ABNORMAL ECG - SINUS RHYTHM LVH WITH SECONDARY REPOLARIZATION ABNORMALITY : Confirmed by: Farhad Estrada 30-Mar-2018 19:38:51
== END 2018-03-30 19:02 | disposition home or self-care (01) ==
LOC: ER 12:37
DX: E11.65 Type 2 diabetes mellitus with hyperglycemia (principal); R55 Syncope and collapse; N34.2 Other urethritis; R53.1 Weakness; I10 Essential (primary) hypertension
CPT/HCPCS: 93005; 99285; 51701; 96365; 36415; 87086; 85025; 87088; 80053; 81001; 87186; 71045; 70450; 93010; J0696

== ENCOUNTER 2018-04-20 10:48 | Inpatient (IN) | payer MEDICARE, BC, MEDICAID ==
[2018-04-20] MEDS ORDERED: ACETAMINOPHEN 325 MG TABLET PO PRN (11:00)
[2018-04-20] MEDS ORDERED: DEXTROSE 50%-WATER 25 GM/50 ML DISP.SYRIN IV PRN ×2 (11:06)
[2018-04-20] MEDS ORDERED: DEXTROSE 40% GEL 15 GM TUBE PO PRN ×2 (11:06)
[2018-04-20] MEDS ORDERED: GLUCAGON,HUMAN RECOMB 1 MG INJ IM PRN (11:06)
[2018-04-20] MEDS ORDERED: CEFTRIAXONE 1 GM/D5W RTU 1 GM/50 ML RTUPB IV SCH (12:00)
[2018-04-20] MEDS ORDERED: TRAMADOL HCL 50 MG TABLET PO PRN (12:14)
--- NOTE | 2018-04-20 12:14 | PDOC H&P ---
History of Present Illness Admission Date/PCP: 04/20/18 10:48 DIANE ROBLES MD Patient complains of: Weakness History of Present Illness: YSABEL CHEEMA is a 87 year old female This is a 87-year-old female's with a significant history of the dementia coming since last several months history of the hypertensions chronic kidney disease currently see Dr. 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 seen by the rn interventional initially started on the high-dose of the steroidAnd patient had a temporal artery biopsy was done was also negative's patient was referred to the neuro-rn interventional and [facility] which patient saw last week and it did use the tapering steroid According to the son once the patient's steroid was increase in the beginning patients more getting weaker now patient's blood sugar was running high and started on a Tradjenta and sliding scale and getting better but patient is getting more weak and weak Also significant history of the recurrent urinary tract infections and worsening the dementia patients since last several days unable to stand up and unable to walk and not feeling well and more confused and the patient was brought to the my office by her son and at this point decided to admit to the hospital for possible UTI weakness possible from the steroid effect versus recent stroke Past Medical History Cardiac Medical History: Reports: Hypertension - CONTROLLED Denies: Myocardial Infarction Pulmonary Medical History: Denies: Asthma, Bronchitis, Chronic Obstructive Pulmonary Disease (COPD), Pneumonia Neurological Medical History: Denies: Seizures Endocrine Medical History: Reports: Diabetes Mellitus Type 2 Renal/ Medical History: Reports: Chronic Kidney Disease GI Medical History: Reports: Gastroesophageal Reflux Disease Denies: Hepatitis, Hiatal Hernia Musculoskeltal Medical History: Reports: Arthritis Psychiatric Medical History: Reports: Dementia, Depression Hematology: Denies: Anemia, Sickle Cell Disease Past Surgical History Past Surgical History: Reports: Mastectomy - LUMPECTOMY NO RESTRICTIONS Denies: Amputation, Pacemaker Social History Information Source: Relative Smoking Status: Never Smoker Frequency of Alcohol Use: None Hx Recreational Drug Use: No Hx Prescription Drug Abuse: No Family History Family History: Reviewed & Not Pertinent Parental Family History Reviewed: Yes Children Family History Reviewed: Yes Sibling(s) Family History Reviewed.: Yes Medication/Allergy Home Medications: Cholecalciferol (Vitamin D3) [Vitamin D3 2000 unit Capsule] 2,000 unit PO DAILY 10/07/13 Metoprolol Tartrate [Lopressor 25 mg Tablet] 25 mg PO Q12 04/21/17 [place]-3 Fatty Acids/Fish Oil [Fish Oil 1,000 mg Capsule] 1,000 mg PO DAILY 04/21 Escitalopram Oxalate [Lexapro 10 mg Tablet] 10 mg PO QPM 03/08/18 Linagliptin [Tradjenta] 5 mg PO DAILY 04/20/18 Ranitidine HCl [Zantac 150 mg Tablet] 150 mg PO BIDP PRN 04/20/18 Tramadol HCl [Ultram 50 mg Tablet] 50 mg PO DAILYP PRN 04/20/18 Allergies/Adverse Reactions: No Known Allergies Allergy (Verified 03/08/18 09:38) Review of Systems ROS unobtainable: Due to endotracheal tube, Due to mental status, Other Constitutional: PRESENT: fatigue, weakness. ABSENT: chills, fever(s), headache( s), weight gain, weight loss Eyes: ABSENT: visual disturbances Ears: ABSENT: hearing changes Cardiovascular: ABSENT: chest pain, dyspnea on exertion, edema, orthropnea, palpitations Respiratory: ABSENT: cough, hemoptysis Gastrointestinal: ABSENT: abdominal pain, constipation, diarrhea, hematemesis, hematochezia, nausea, vomiting Genitourinary: ABSENT: dysuria, hematuria Musculoskeletal: ABSENT: joint swelling Integumentary: ABSENT: rash, wounds Neurological: ABSENT: abnormal gait, abnormal speech, confusion, dizziness, focal weakness, syncope Psychiatric: ABSENT: anxiety, depression, homidical ideation, suicidal ideation Endocrine: ABSENT: cold intolerance, heat intolerance, menstrual abnormalities, polydipsia, polyuria Hematologic/Lymphatic: ABSENT: easy bleeding, easy bruising, lymphadenopathy Physical Exam Vital Signs: Temp Pulse Resp BP Pulse Ox 98.4 F 56 L 18 159/74 H 91 L 04/20/18 11:36 04/20/18 11:36 04/20/18 11:36 04/20/18 11:36 04/20/18 11:36 Intake & Output 04/19/18 04/20/18 04/21/18 06:59 06:59 06:59 Weight 53 kg Physical Exam: Pleasant dementia is currently A wheelchair General appearance: PRESENT: no acute distress, well-developed, well-nourished Head exam: PRESENT: atraumatic, normocephalic Eye exam: PRESENT: conjunctiva pink, EOMI, PERRLA. ABSENT: scleral icterus Ear exam: PRESENT: normal external ear exam Mouth exam: PRESENT: moist, tongue midline Neck exam: PRESENT: full ROM. ABSENT: carotid bruit, JVD, lymphadenopathy, thyromegaly Respiratory exam: PRESENT: clear to auscultation darryl Cardiovascular exam: PRESENT: RRR. ABSENT: diastolic murmur, rubs, systolic murmur Pulses: PRESENT: normal dorsalis pedis pul, +2 pedal pulses bilateral Vascular exam: PRESENT: normal capillary refill GI/Abdominal exam: PRESENT: normal bowel sounds, soft. ABSENT: distended, guarding, mass, organolmegaly, rebound, tenderness Rectal exam: PRESENT: deferred Extremities exam: ABSENT: pedal edema Neurological exam: PRESENT: alert, altered, awake. ABSENT: motor sensory deficit Psychiatric exam: PRESENT: appropriate affect, normal mood. ABSENT: homicidal ideation, suicidal ideation Skin exam: PRESENT: dry, intact, warm. ABSENT: cyanosis, rash Assessment & Plan - Diagnosis (1) Weakness Is this a current diagnosis for this admission?: Yes Plan: With the multifactorial including the recent high-dose steroid induce muscles weakness versus infections versus recent history of a stroke in the eyeWhich may be patient have a CVA events Will get the MRI of the brain check the urine culture start on IV antibiotics patient's steroid is already taper to 10 mg (2) Urinary tract infection Qualifiers: Urinary tract infection type: site unspecified Hematuria presence: without hematuria Qualified Code(s): N39.0 - Urinary tract infection, site not specified Is this a current diagnosis for this admission?: Yes Plan: Start the patient on IV antibiotics and get the urine culture (3) Chronic kidney disease Qualifiers: Chronic kidney disease stage: stage 3 (moderate) Qualified Code(s): N18.3 - Chronic kidney disease, stage 3 (moderate) Is this a current diagnosis for this admission?: Yes Plan: Will check the chemistry patient's currently see Dr. Wren as an outpatient (4) Dementia Qualifiers: Dementia type: unspecified type Dementia behavioral disturbance: with behavioral disturbance Qualified Code(s): F03.91 - Unspecified dementia with behavioral disturbance Is this a current diagnosis for this admission?: Yes Plan: Patient unable to tolerate any Aricept or Namenda medications in the past (5) Osteoarthritis Qualifiers: Osteoarthritis location: multiple joints Is this a current diagnosis for this admission?: Yes (6) Acute blindness Is this a current diagnosis for this admission?: Yes Plan: Patient is currently seen by the neuro-rn interventional not sure about optic neuritis versus temporal arteritis patient is currently on tapering dose of the steroids and patient's family told that patient was stoke in the eye (7) Hypertension Qualifiers: Hypertension type: essential hypertension Qualified Code(s): I10 - Essential (primary) hypertension Is this a current diagnosis for this admission?: Yes Plan: Continues current medication - Time Time Spent: 30 to 50 Minutes Medications reviewed and adjusted accordingly: Yes Anticipated discharge: Acute Rehab Within: Other - Inpatient Certification Based on my medical assessment, after consideration of the patient's comorbidities, presenting symptoms, or acuity I expect that the services needed warrant INPATIENT care.: Yes I certify that my determination is in accordance with my understanding of Medicare's requirements for reasonable and necessary INPATIENT services [42 CFR 412.3e].: Yes Medical Necessity: Need For IV Fluids, Need for IV Antibiotics Post Hospital Care: D/C [employer] Documentation - Plan Summary Plan Summary: Admit the patient on the medical floor Discussed with the both son regarding the patient's current conditions patient is currently a DNR/DNI
--- NOTE | 2018-04-20 13:05 | RADIOLOGY REPORT (SQ) ---
EXAM DESCRIPTION: CHEST SINGLE VIEW COMPLETED DATE/TIME: 04/20/2018 12:32 pm REASON FOR STUDY: cough COMPARISON: 01/07/2009 EXAM PARAMETERS: NUMBER OF VIEWS: One view. TECHNIQUE: Single frontal radiographic view of the chest acquired. RADIATION DOSE: NA LIMITATIONS: None. FINDINGS: LUNGS AND PLEURA: Focal pleural thickening or possibly peripheral infiltrate in the right cardiophrenic angle. Lung agarwal are otherwise clear. No pneumothorax. MEDIASTINUM AND HILAR STRUCTURES: No masses. Contour normal. HEART AND VASCULAR STRUCTURES: Heart normal in size. Normal vasculature. BONES: No acute findings. HARDWARE: None in the chest. OTHER: No other significant finding. IMPRESSION: Focal asymmetric opacity in the right lateral lung base. This could represent pleural t hickening or focal subpleural infiltrate. TECHNICAL DOCUMENTATION: JOB ID: [id number] [employer]- All Rights Reserved Reading location - IP/workstation name: [email or web address]
--- NOTE | 2018-04-20 13:06 | RADIOLOGY REPORT (SQ) ---
EXAM DESCRIPTION: MRI HEAD WITHOUT COMPLETED DATE/TIME: 04/20/2018 12:21 pm REASON FOR STUDY: cva/demetia/wekenwss COMPARISON: CT brain 03/30/2018, 02/23/2018, MRI brain 07/24/2016 TECHNIQUE: Multiplanar imaging includes non-contrasted T1, T2, FLAIR, and diffusion with ADC map seq uences. Images stored on PACS. LIMITATIONS: None. FINDINGS: ANATOMY: No developmental anomalies. Normal vascular flow voids. Pituitary fossa normal. CSF SPACES: Normal in size and contour. No hemorrhage. CEREBRUM: Diffusion-weighted images are positive for punctate acute nonhemorrhagic infarcts over the left frontal convexity, best shown on diffusion weighted image 21. Elsewhere, the cerebral hemispheres demonstrate extensive diffuse small vessel ischemic change in the hemispheric white matter with increased FLAIR/ T2 signal. No mass effect or midline shift POSTERIOR FOSSA: Moderate chronic small vessel ischemic change in the dmitry. . No hemorrhage. No hamzah a, masses or mass effect. Internal auditory canals, cerebello-pontine angles, mastoids normal. DIFFUSION IMAGING: Diffusion-weighted images are positive for punctate acute nonhemorrhagic infarcts over the left frontal convexity, best shown on diffusion weighted image 21. ORBITS: No masses. Globes post cataract surgery PARANASAL SINUSES: No fluid levels. Mucosa normal. OTHER: No other significant finding. IMPRESSION: Diffusion-weighted images are positive for punctate acute nonhemorrhagic infarcts over t he left frontal cortex. EVIDENCE OF ACUTE STROKE: Yes COMMENT: Pertinent findings on the imaging study reported as a CRITICAL RESULT to DIANE ROBLES MD at12:58 on 04/20/2018. Category of Critical Result: Acute infarct TECHNICAL DOCUMENTATION: JOB ID: [id number]- All Rights Reserved Reading location - IP/workstation name: [email or web address]
[2018-04-20] MEDS: CEFTRIAXONE SODIUM 1,000 MG in DEXTROSE 5%-WATER 50 ML IV SCH (13:36)
[2018-04-20] MEDS: NORMAL SALINE 1000 ML 1,000 ML IV PRN (13:36)
[2018-04-20] MEDS: SITAGLIPTIN PHOSPHATE 50 MG TABLET PO SCH (13:41)
[2018-04-20] MEDS: CHOLECALCIFEROL (D3) 1,000 UNIT TABLET PO SCH (13:41)
[2018-04-20 13:56] LABS: HEMOGLOBIN 12.5 g/dL (12.0-15.5); MEAN CORPUSCULAR HEMOGLOBIN 31.1 pg (27.0-33.4); MEAN CORPUSCULAR HGB CONC 33.7 g/dL (32.0-36.0); MEAN CORPUSCULAR VOLUME 92 fl (80-97); PLATELET COUNT 163 10^3/uL (150-450); RED BLOOD COUNT 4.02 10^6/uL (3.72-5.28); RED CELL DISTRIBUTION WIDTH 14.5 % (11.5-14.0); WHITE BLOOD COUNT 9.2 10^3/uL (4.0-10.5)
[2018-04-20 14:17] LABS: ABSOLUTE LYMPHOCYTES# (MANUAL) 0.9 10^3/uL (0.5-4.7); ABSOLUTE MONOCYTES # (MANUAL) 0.3 10^3/uL (0.1-1.4); ANISOCYTOSIS SLIGHT; BAND NEUTROPHILS % (MANUAL) 2 % (3-5); BASOPHILS % (MANUAL) 0 % (0-2); EOSINOPHILS % (MANUAL) 0 % (0-6); LYMPHOCYTES % (MANUAL) 10 % (13-45); METAMYELOCYTES % (MANUAL) 1 % (0); MONOCYTES % (MANUAL) 3 % (3-13); OVALOCYTES SLIGHT; PLATELET COMMENT ADEQUATE; POIKILOCYTOSIS SLIGHT; SEGMENTED NEUTROPHILS % (MAN) 84 % (42-78); TOTAL CELLS COUNTED 100
[2018-04-20 14:20] LABS: ALANINE AMINOTRANSFERASE 22 U/L (9-52); ALBUMIN 3.5 g/dL (3.5-5.0); ALKALINE PHOSPHATASE 69 U/L (38-126); ANION GAP 10 (5-19); ASPARTATE AMINO TRANSFERASE 26 U/L (14-36); BILIRUBIN,DIRECT 0.3 mg/dL (0.0-0.4); BILIRUBIN,TOTAL 1.1 mg/dL (0.2-1.3); BLOOD UREA NITROGEN 37 mg/dL (7-20); CALCIUM 9.9 mg/dL (8.4-10.2); CARBON DIOXIDE 29 mmol/L (22-30); CHLORIDE 103 mmol/L (98-107); CREATINE KINASE 21 U/L (30-135); GLUCOSE 120 mg/dL (75-110); POTASSIUM 4.2 mmol/L (3.6-5.0); SODIUM 141.5 mmol/L (137-145); TOTAL PROTEIN 6.7 g/dL (6.3-8.2)
[2018-04-20 16:31] LABS: FREE T3 1.75 pg/mL (2.77-5.27)
[2018-04-20] MEDS: DOCUSATE SODIUM 100 MG CAPSULE PO SCH (17:20)
[2018-04-20] MEDS: ASPIRIN 325 MG TABLET, ENT COATED PO SCH (17:21)
[2018-04-20] MEDS: ESCITALOPRAM OXALATE 10 MG TABLET PO SCH (17:21)
[2018-04-20] MEDS ORDERED: FAMOTIDINE 20 MG TABLET PO SCH (18:00)
[2018-04-20] MEDS ORDERED: (PENDING PHARMACY ID) (Ranitidine Hcl [Zantac 150 Mg Tablet] 150 MG) PO SCH (18:00)
--- NOTE | 2018-04-20 19:22 | RADIOLOGY REPORT (SQ) ---
EXAM DESCRIPTION: CAROTID DOPPLER COMPLETED DATE/TIME: 04/20/2018 7:14 pm REASON FOR STUDY: cva COMPARISON: None. TECHNIQUE: Grayscale ultrasound, Doppler velocity and spectra, and color Doppler images acquired of the extra-cranial carotid and vertebral arteries. Images stored on PACS. LIMITATIONS: None. FINDINGS: RIGHT CAROTID CCA Velocities: Within normal limits. ICA Velocities Peak systolic 0.67 m/s. End diastolic 0.15 m/s. Proximal ICA/CCA peak systolic ratio 1.5. Spectra normal. No significant plaque. LEFT CAROTID CCA Velocities: Within normal limits. ICA Velocities Peak systolic 0.77 m/s. End diastolic 0.2 m/s. Proximal ICA/CCA peak systolic ratio 1.2. Spectra normal. No significant plaque. VERTEBRAL ARTERIES: Antegrade flow. Normal waveforms. SUBCLAVIAN ARTERIES: No finding. OTHER: No other significant finding. IMPRESSION: NO HEMODYNAMICALLY SIGNIFICANT STENOSIS. COMMENT: Quality ID #[id number]: Velocity criteria are extrapolated from the diameter data as defined by t he Society of Radiologists in Ultrasound Consensus Conference. Radiology 2003: 229; 340-346. TECHNICAL DOCUMENTATION: JOB ID: [id number] [employer]- All Rights Reserved Reading location - IP/workstation name: [email or web address]
[2018-04-20 19:50] LABS: AMORPHOUS SEDIMENT,URINE TRACE /HPF; APPEARANCE,URINE TURBID; BILIRUBIN,URINE NEGATIVE (NEGATIVE); COLOR,URINE YELLOW; GLUCOSE, URINE NEGATIVE (NEGATIVE); KETONES,URINE NEGATIVE (NEGATIVE); LEUKOCYTE ESTERASE,URINE LARGE (NEGATIVE); NITRITE,URINE NEGATIVE (NEGATIVE); PROTEIN,URINE 100 mg/dL (NEGATIVE); TRIPLE PHOSPHATE CRYSTAL,URINE MODERATE /HPF; URINE SPECIFIC GRAVITY 1.014; UROBILINOGEN,URINE NEGATIVE mg/dL (<2.0)
--- NOTE | 2018-04-20 21:03 | EKG REPORT ---
SEVERITY:- ABNORMAL ECG - SINUS RHYTHM LEFT VENTRICULAR HYPERTROPHY ANTERIOR Q WAVES, POSSIBLY DUE TO LVH ABNORMAL T, CONSIDER ISCHEMIA, INFERIOR LEADS : Confirmed by: Farhad Estrada 20-Apr-2018 21:02:44
[2018-04-20] MEDS: FAMOTIDINE 20 MG TABLET PO SCH (22:27)
[2018-04-20] MEDS: INSULIN LISPRO 100 UNIT/ML 3 ML VIAL SUBCUT PRN (22:28)
[2018-04-21] MEDS: METOPROLOL TARTRATE 25 MG TABLET PO SCH ×3 (00:54→22:33)
[2018-04-21 06:08] LABS: ABSOLUTE LYMPHOCYTES (AUTO) 1.2 10^3/uL (0.5-4.7); ABSOLUTE MONOCYTES (AUTO) 0.4 10^3/uL (0.1-1.4); ABSOLUTE NEUT (AUTO) 6.9 10^3/uL (1.7-8.2); BASOPHILS % (AUTO) 0.5 % (0-2); EOSINOPHILS % (AUTO) 0.4 % (0-6); HEMATOCRIT 34.4 % (36.0-47.0); HEMOGLOBIN 11.8 g/dL (12.0-15.5); LYMPHOCYTES % (AUTO) 13.8 % (13-45); MEAN CORPUSCULAR HGB CONC 34.2 g/dL (32.0-36.0); MEAN CORPUSCULAR VOLUME 91 fl (80-97); MONOCYTES % (AUTO) 4.6 % (3-13); PLATELET COUNT 146 10^3/uL (150-450); RED BLOOD COUNT 3.79 10^6/uL (3.72-5.28); RED CELL DISTRIBUTION WIDTH 14.6 % (11.5-14.0); SEGMENTED NEUTROPHILS % (AUTO) 80.7 % (42-78); TOTAL CELLS COUNTED % (AUTO) 100 %; WHITE BLOOD COUNT 8.6 10^3/uL (4.0-10.5)
[2018-04-21 06:33] LABS: ALANINE AMINOTRANSFERASE 12 U/L (9-52); ALKALINE PHOSPHATASE 63 U/L (38-126); ANION GAP 8 (5-19); ASPARTATE AMINO TRANSFERASE 25 U/L (14-36); BILIRUBIN,DIRECT 0.2 mg/dL (0.0-0.4); BILIRUBIN,TOTAL 0.7 mg/dL (0.2-1.3); BLOOD UREA NITROGEN 30 mg/dL (7-20); CALCIUM 9.3 mg/dL (8.4-10.2); CARBON DIOXIDE 25 mmol/L (22-30); CHLORIDE 105 mmol/L (98-107); CHOLESTEROL 231.69 mg/dL (0-200); GLUCOSE 128 mg/dL (75-110); POTASSIUM 4.3 mmol/L (3.6-5.0); SODIUM 137.6 mmol/L (137-145); TRIGLYCERIDES 240 mg/dL (<150)
[2018-04-21 06:44] LABS: DIRECT LDL 136 mg/dL (<100)
[2018-04-21] MEDS: ASPIRIN 325 MG TABLET, ENT COATED PO SCH (09:28)
[2018-04-21] MEDS: FAMOTIDINE 20 MG TABLET PO SCH ×2 (09:28→22:31)
[2018-04-21] MEDS: PREDNISONE 10 MG TABLET PO SCH (09:28)
[2018-04-21] MEDS: DOCUSATE SODIUM 100 MG CAPSULE PO SCH ×2 (09:28→17:37)
[2018-04-21] MEDS: SITAGLIPTIN PHOSPHATE 50 MG TABLET PO SCH (09:29)
[2018-04-21] MEDS: CHOLECALCIFEROL (D3) 1,000 UNIT TABLET PO SCH (09:29)
[2018-04-21] MEDS: ENOXAPARIN SODIUM INJ 30 MG/0.3 ML DISP.SYRIN SUBCUT SCH (09:29)
--- NOTE | 2018-04-21 09:43 | PDOC PROGRESS REPORT ---
Subjective Progress Note for:: 04/21/18 Subjective:: Patient is currently doing fair MRI of the head so some acute frontal lobe infarct Patient's urine is still positive His chest x-ray is questionable infiltrate No chest pain no short of breath patients doing fair Reason For Visit: WEAKNESS,UTI,CVA Physical Exam Vital Signs: Temp Pulse Resp BP Pulse Ox 98.6 F 78 18 161/76 H 95 04/21/18 07:26 04/21/18 08:00 04/21/18 08:00 04/21/18 08:00 04/21/18 08:00 Intake & Output 04/20/18 04/21/18 04/22/18 06:59 06:59 06:59 Intake Total 287 Balance 287 Weight 54.6 kg General appearance: PRESENT: no acute distress, well-developed, well-nourished Head exam: PRESENT: atraumatic, normocephalic Eye exam: PRESENT: conjunctiva pink, EOMI, PERRLA. ABSENT: scleral icterus Ear exam: PRESENT: normal external ear exam Mouth exam: PRESENT: moist, tongue midline Neck exam: PRESENT: full ROM. ABSENT: carotid bruit, JVD, lymphadenopathy, thyromegaly Respiratory exam: PRESENT: clear to auscultation darryl Cardiovascular exam: PRESENT: RRR. ABSENT: diastolic murmur, rubs, systolic murmur Pulses: PRESENT: normal dorsalis pedis pul, +2 pedal pulses bilateral Vascular exam: PRESENT: normal capillary refill GI/Abdominal exam: PRESENT: normal bowel sounds, soft. ABSENT: distended, guarding, mass, organolmegaly, rebound, tenderness Rectal exam: PRESENT: deferred Neurological exam: PRESENT: alert, awake, oriented to person, CN II-XII grossly intact. ABSENT: motor sensory deficit Psychiatric exam: PRESENT: appropriate affect, normal mood. ABSENT: homicidal ideation, suicidal ideation Skin exam: PRESENT: dry, intact, warm. ABSENT: cyanosis, rash Results Laboratory Results: 04/21/18 05:34 04/21/18 05:34 04/20/18 04/20/18 04/20/18 13:26 13:26 13:26 WBC 9.2 RBC 4.02 Hgb 12.5 Hct 37.0 MCV 92 MCH 31.1 MCHC 33.7 RDW 14.5 H Plt Count 163 Seg Neutrophils % Not Reportable Lymphocytes % Not Reportable Monocytes % Not Reportable Eosinophils % Not Reportable Basophils % Not Reportable Absolute Neutrophils Not Reportable Absolute Lymphocytes Not Reportable Absolute Monocytes Not Reportable Absolute Eosinophils Not Reportable Absolute Basophils Not Reportable Sodium 141.5 Potassium 4.2 Chloride 103 Carbon Dioxide 29 Anion Gap 10 BUN 37 H Creatinine 1.54 H Est GFR ( Amer) 39 L Est GFR (Non-Af Amer) 32 L Glucose 120 H Calcium 9.9 Magnesium Total Bilirubin 1.1 AST 26 ALT 22 Alkaline Phosphatase 69 Total Protein 6.7 Albumin 3.5 Triglycerides Cholesterol LDL Cholesterol Direct VLDL Cholesterol HDL Cholesterol TSH 0.11 L Free T4 Free T3 pg/mL Urine Color Urine Appearance Urine pH Ur Specific [place] Urine Protein Urine Glucose (UA) Urine Ketones Urine Blood Urine Nitrite Ur Leukocyte Esterase Urine WBC (Auto) Urine RBC (Auto) 04/20/18 04/20/18 04/21/18 13:26 18:40 05:34 WBC RBC Hgb Hct MCV MCH MCHC RDW Plt Count Seg Neutrophils % Lymphocytes % Monocytes % Eosinophils % Basophils % Absolute Neutrophils Absolute Lymphocytes Absolute Monocytes Absolute Eosinophils Absolute Basophils Sodium 137.6 Potassium 4.3 Chloride 105 Carbon Dioxide 25 Anion Gap 8 BUN 30 H Creatinine 1.91 H Est GFR ( Amer) 30 L Est GFR (Non-Af Amer) 25 L Glucose 128 H Calcium 9.3 Magnesium 1.9 Total Bilirubin 0.7 AST 25 ALT 12 Alkaline Phosphatase 63 Total Protein 6.0 L Albumin 3.0 L Triglycerides 240 H Cholesterol 231.69 H LDL Cholesterol Direct 136 H VLDL Cholesterol 48.0 H HDL Cholesterol 54 TSH Cancelled Free T4 1.00 Free T3 pg/mL 1.75 L Urine Color YELLOW Urine Appearance TURBID Urine pH 7.0 Ur Specific [place] 1.014 Urine Protein 100 H Urine Glucose (UA) NEGATIVE Urine Ketones NEGATIVE Urine Blood NEGATIVE Urine Nitrite NEGATIVE Ur Leukocyte Esterase LARGE H Urine WBC (Auto) 74 Urine RBC (Auto) 23 04/21/18 05:34 WBC 8.6 RBC 3.79 Hgb 11.8 L Hct 34.4 L MCV 91 MCH 31.0 MCHC 34.2 RDW 14.6 H Plt Count 146 L Seg Neutrophils % 80.7 H Lymphocytes % 13.8 Monocytes % 4.6 Eosinophils % 0.4 Basophils % 0.5 Absolute Neutrophils 6.9 Absolute Lymphocytes 1.2 Absolute Monocytes 0.4 Absolute Eosinophils 0.0 Absolute Basophils 0.0 Sodium Potassium Chloride Carbon Dioxide Anion Gap BUN Creatinine Est GFR ( Amer) Est GFR (Non-Af Amer) Glucose Calcium Magnesium Total Bilirubin AST ALT Alkaline Phosphatase Total Protein Albumin Triglycerides Cholesterol LDL Cholesterol Direct VLDL Cholesterol HDL Cholesterol TSH Free T4 Free T3 pg/mL Urine Color Urine Appearance Urine pH Ur Specific [place] Urine Protein Urine Glucose (UA) Urine Ketones Urine Blood Urine Nitrite Ur Leukocyte Esterase Urine WBC (Auto) Urine RBC (Auto) 04/20/18 13:26 Creatine Kinase 21 L Impressions: Carotid Doppler Study 04/20/18 00:00 IMPRESSION: NO HEMODYNAMICALLY SIGNIFICANT STENOSIS. Chest X-Ray 04/20/18 00:00 IMPRESSION: Focal asymmetric opacity in the right lateral lung base. This could represent pleural thickening or focal subpleural infiltrate. Head MRI 04/20/18 00:00 IMPRESSION: Diffusion-weighted images are positive for punctate acute nonhemorrhagic infarcts over the left frontal cortex. EVIDENCE OF ACUTE STROKE: Yes Assessment & Plan - Diagnosis (1) Acute cerebrovascular accident Is this a current diagnosis for this admission?: Yes Plan: Continues aspirin at the formerly [facility] and continues to stroke protocol (2) Weakness Is this a current diagnosis for this admission?: Yes Plan: Most likely a possible from the stroke and the infections and the steroid (3) Urinary tract infection Qualifiers: Urinary tract infection type: site unspecified Hematuria presence: without hematuria Qualified Code(s): N39.0 - Urinary tract infection, site not specified Is this a current diagnosis for this admission?: Yes Plan: Start the patient on IV antibiotics and get the urine culture (4) Chronic kidney disease Qualifiers: Chronic kidney disease stage: stage 3 (moderate) Qualified Code(s): N18.3 - Chronic kidney disease, stage 3 (moderate) Is this a current diagnosis for this admission?: Yes Plan: Will check the chemistry patient's currently see Dr. 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 Is this a current diagnosis for this admission?: Yes Plan: Patient unable to tolerate any Aricept or Namenda medications in the past (6) Osteoarthritis Qualifiers: Osteoarthritis location: multiple joints Is this a current diagnosis for this admission?: Yes (7) Acute blindness Is this a current diagnosis for this admission?: Yes Plan: Patient is currently seen by the neuro-bandoleer packer not sure about optic neuritis versus temporal arteritis patient is currently on tapering dose of the steroids and patient's family told that patient was stoke in the eye (8) Hypertension Qualifiers: Hypertension type: essential hypertension Qualified Code(s): I10 - Essential (primary) hypertension Is this a current diagnosis for this admission?: Yes Plan: Continues current medication - Time Time Spent with patient: 15-24 minutes Medications reviewed and adjusted accordingly: Yes Anticipated discharge: SNF Within: Other - Inpatient Certification Based on my medical assessment, after consideration of the patient's comorbidities, presenting symptoms, or acuity I expect that the services needed warrant INPATIENT care.: Yes I certify that my determination is in accordance with my understanding of Medicare's requirements for reasonable and necessary INPATIENT services [42 CFR 412.3e].: Yes Medical Necessity: Need Close Monitoring Due to Risk of Patient Decompensation, Need for IV Antibiotics Post Hospital Care: D/C Bottom Filler Documentation - Plan Summary Plan Summary: Continues to current medications discussed with the son regarding the patient's current conditions
[2018-04-21] MEDS ORDERED: CHOLECALCIFEROL PO SCH (10:00)
[2018-04-21] MEDS ORDERED: (PENDING PHARMACY ID) (Linagliptin [Tradjenta] 5 MG) PO SCH (10:00)
[2018-04-21] MEDS ORDERED: [UNRECOGNIZED DRUG - OTHER] PO SCH (10:00)
[2018-04-21] MEDS: AMLODIPINE BESYLATE 2.5 MG TABLET PO SCH ×2 (10:11→22:34)
[2018-04-21] MEDS: INSULIN LISPRO 100 UNIT/ML 3 ML VIAL SUBCUT PRN (11:51)
[2018-04-21] MEDS: CEFTRIAXONE SODIUM 1,000 MG in DEXTROSE 5%-WATER 50 ML IV SCH (11:52)
--- NOTE | 2018-04-21 13:04 | XCELERA REPORT ---
[address] [address] Transthoracic Echocardiogram Report Name: YSABEL CHEEMA Age: 87 yrs Gender: Female : 1930 Patient Status: Inpatient Patient Location: [address] [place] [address] Study Date: 04/20/2018 05:53 PM Height: 60 in Weight: 115 lb BSA: 1.5 m2 Procedure: A complete two-dimensional transthoracic echocardiogram was performed (2D, M-mode, spectral and color flow Doppler). The study was technically difficult with many images being suboptimal in quality. Reason For Study: cva Ordering Physician: DIANE ROBLES Performed By: Ingrid Nance Interpretation Summary The left ventricular ejection fraction is preserved. Consider additional methods to assess LVEF such as MUGA scan, CTA heart, cardiac MRI, PATRICIA, etc. if clinically indicated. The left ventricle is grossly normal size. There is mild concentric left ventricular hypertrophy. Doppler measurements suggest pseudonormalized left ventricular relaxation, which is associated with grade II/IV or mild to moderate diastolic dysfunction Regional wall motion abnormalities cannot be excluded due to limited visualization. The right ventricular systolic function is borderline reduced. Borderline left atrial enlargement. The right atrium is normal in size There is a trace amount of mitral regurgitation There is no mitral valve stenosis. No aortic regurgitation is present. There is no aortic valve stenosis There is a trace to mild amount of tricuspid regurgitation There is mild pulmonary hypertension by echo Right ventricular systolic pressure is estimated to be elevated at 40-50mmHg. The aortic root is not well visualized. The inferior vena cava was not well visualized There is no pericardial effusion. MMode/2D Measurements & Calculations RVDd: 2.7 cm LVIDd: 3.7 cm FS: 32.1 % Ao root diam: 2.5 cm IVSd: 1.1 cm LVIDs: 2.5 cm EDV(Teich): 57.8 ml Ao root area: 5.0 cm2 LVPWd: 1.1 cm ESV(Teich): 22.5 ml LA dimension: 3.6 cm EF(Teich): 61.2 % Doppler Measurements & Calculations MV E max gloria: MV P1/2t max gloria: Ao V2 max: LV V1 max P.1 cm/sec 92.1 cm/sec 150.7 cm/sec 6.3 mmHg MV A max gloria: MV P1/2t: 64.8 msec Ao max PG: LV V1 max: 88.2 cm/sec MVA(P1/2t): 3.4 cm2 9.1 mmHg 125.2 cm/sec MV E/A: 0.60 MV dec slope: 416.3 cm/sec2 MV dec time: 0.31 sec PA V2 max: PI end-d gloria: TR max gloria: MV P1/2t-pr_phl: 111.3 cm/sec 116.7 cm/sec 306.8 cm/sec 64.8 msec PA max PG: TR max P.0 mmHg 37.6 mmHg Left Ventricle The left ventricle is grossly normal size. There is mild concentric left ventricular hypertrophy. The left ventricular ejection fraction is preserved. Consider additional methods to assess LVEF such as MUGA scan, CTA heart, cardiac MRI, PATRICIA, etc. if clinically indicated. Doppler measurements suggest pseudonormalized left ventricular relaxation, which is associated with grade II/IV or mild to moderate diastolic dysfunction. Not all wall segments were well visualized. Regional wall motion abnormalities cannot be excluded due to limited visualization. Right Ventricle Borderline right ventricular enlargement. The right ventricular systolic function is borderline reduced. Atria The right atrium is normal in size. Borderline left atrial enlargement. Interarterial septum not well visualized and not well dopplered. Cannot comment on ASD/PFO presence. Mitral Valve There is mild mitral leaflet calcification. There is no mitral valve stenosis. There is a trace amount of mitral regurgitation. Aortic Valve The aortic valve is not well visualized secondary to technical limitations. There is no aortic valve stenosis. No aortic regurgitation is present. Tricuspid Valve The tricuspid valve is not well visualized, but is grossly normal. There is no tricuspid stenosis. There is a trace to mild amount of tricuspid regurgitation. There is mild pulmonary hypertension by echo. Right ventricular systolic pressure is estimated to be elevated at 40-50mmHg. Pulmonic Valve The pulmonic valve is not well visualized. Great Vessels The aortic root is not well visualized. The inferior vena cava was not well visualized. Effusions There is no pericardial effusion. Incidental Findings No definite cardiac source of CVA/TIA noted on this particular trans-thoracic study. Consider PATRICIA if clinically indicated. May consider mobile cardiac telemetry monitoring (MCT) for ruling out transient AFIB. : DIANE ROBLES > Farhad Estrada
[2018-04-21] MEDS: NORMAL SALINE 1000 ML 1,000 ML IV PRN (15:32)
[2018-04-21] MEDS: ESCITALOPRAM OXALATE 10 MG TABLET PO SCH (17:37)
[2018-04-21] MEDS: ATORVASTATIN CALCIUM 20 MG TABLET PO SCH (22:31)
[2018-04-22 06:15] LABS: ABSOLUTE EOSINOPHILS # (AUTO) 0.1 10^3/uL (0.0-0.6); ABSOLUTE LYMPHOCYTES (AUTO) 1.3 10^3/uL (0.5-4.7); ABSOLUTE MONOCYTES (AUTO) 0.3 10^3/uL (0.1-1.4); ABSOLUTE NEUT (AUTO) 7.5 10^3/uL (1.7-8.2); BASOPHILS % (AUTO) 0.3 % (0-2); EOSINOPHILS % (AUTO) 0.6 % (0-6); HEMATOCRIT 35.6 % (36.0-47.0); HEMOGLOBIN 11.9 g/dL (12.0-15.5); LYMPHOCYTES % (AUTO) 13.8 % (13-45); MEAN CORPUSCULAR HEMOGLOBIN 30.6 pg (27.0-33.4); MEAN CORPUSCULAR HGB CONC 33.5 g/dL (32.0-36.0); MEAN CORPUSCULAR VOLUME 91 fl (80-97); MONOCYTES % (AUTO) 3.5 % (3-13); PLATELET COUNT 143 10^3/uL (150-450); RED CELL DISTRIBUTION WIDTH 14.4 % (11.5-14.0); SEGMENTED NEUTROPHILS % (AUTO) 81.8 % (42-78); TOTAL CELLS COUNTED % (AUTO) 100 %; WHITE BLOOD COUNT 9.2 10^3/uL (4.0-10.5)
[2018-04-22 06:20] LABS: BLOOD UREA NITROGEN 30 mg/dL (7-20); CARBON DIOXIDE 28 mmol/L (22-30); CHLORIDE 107 mmol/L (98-107); GLUCOSE 103 mg/dL (75-110); SODIUM 139.4 mmol/L (137-145)
[2018-04-22 06:24] LABS: ANION GAP 5 (5-19)
[2018-04-22] MEDS: NORMAL SALINE 1000 ML 1,000 ML IV PRN (07:35)
[2018-04-22] MEDS ORDERED: OXYCODONE HCL IR 5 MG TABLET PO PRN (09:03)
[2018-04-22] MEDS ORDERED: ACETAMINOPHEN 325 MG TABLET PO PRN (09:09)
[2018-04-22] MEDS: CHOLECALCIFEROL (D3) 1,000 UNIT TABLET PO SCH (09:37)
[2018-04-22] MEDS: SITAGLIPTIN PHOSPHATE 50 MG TABLET PO SCH (09:37)
[2018-04-22] MEDS: AMLODIPINE BESYLATE 2.5 MG TABLET PO SCH ×2 (09:38→22:20)
[2018-04-22] MEDS: PREDNISONE 10 MG TABLET PO SCH (09:38)
[2018-04-22] MEDS: DOCUSATE SODIUM 100 MG CAPSULE PO SCH ×2 (09:38→17:23)
[2018-04-22] MEDS: ENOXAPARIN SODIUM INJ 30 MG/0.3 ML DISP.SYRIN SUBCUT SCH (09:38)
[2018-04-22] MEDS: ASPIRIN 325 MG TABLET, ENT COATED PO SCH (09:38)
[2018-04-22] MEDS: METOPROLOL TARTRATE 25 MG TABLET PO SCH ×2 (09:38→22:20)
--- NOTE | 2018-04-22 12:03 | PDOC PROGRESS REPORT ---
Subjective Progress Note for:: 04/22/18 Subjective:: Patient is currently doing fair except patient was complaining of a joint pain Significant history of the osteoarthritis Other than that no events happen Since blood pressure is stable Reason For Visit: WEAKNESS,UTI,CVA Physical Exam Vital Signs: Temp Pulse Resp BP Pulse Ox 98.1 F 92 18 188/83 H 92 04/22/18 07:23 04/22/18 07:23 04/22/18 07:23 04/22/18 07:23 04/22/18 07:23 Intake & Output 04/21/18 04/22/18 04/23/18 06:59 06:59 06:59 Intake Total 1287 673 963 Balance 1287 673 963 Weight 54.6 kg 55.3 kg General appearance: PRESENT: no acute distress, well-developed, well-nourished Head exam: PRESENT: atraumatic, normocephalic Eye exam: PRESENT: conjunctiva pink, EOMI, PERRLA. ABSENT: scleral icterus Ear exam: PRESENT: normal external ear exam Mouth exam: PRESENT: moist, tongue midline Neck exam: PRESENT: full ROM. ABSENT: carotid bruit, JVD, lymphadenopathy, thyromegaly Respiratory exam: PRESENT: clear to auscultation darryl Cardiovascular exam: PRESENT: RRR. ABSENT: diastolic murmur, rubs, systolic murmur Pulses: PRESENT: normal dorsalis pedis pul, +2 pedal pulses bilateral Vascular exam: PRESENT: normal capillary refill GI/Abdominal exam: PRESENT: normal bowel sounds, soft. ABSENT: distended, guarding, mass, organolmegaly, rebound, tenderness Rectal exam: PRESENT: deferred Neurological exam: PRESENT: alert, awake, oriented to person. ABSENT: motor sensory deficit Psychiatric exam: PRESENT: appropriate affect, normal mood. ABSENT: homicidal ideation, suicidal ideation Skin exam: PRESENT: dry, intact, warm. ABSENT: cyanosis, rash Results Laboratory Results: 04/22/18 05:41 04/22/18 05:41 04/22/18 04/22/18 05:41 05:41 WBC 9.2 RBC 3.90 Hgb 11.9 L Hct 35.6 L MCV 91 MCH 30.6 MCHC 33.5 RDW 14.4 H Plt Count 143 L Seg Neutrophils % 81.8 H Lymphocytes % 13.8 Monocytes % 3.5 Eosinophils % 0.6 Basophils % 0.3 Absolute Neutrophils 7.5 Absolute Lymphocytes 1.3 Absolute Monocytes 0.3 Absolute Eosinophils 0.1 Absolute Basophils 0.0 Sodium 139.4 Potassium 4.0 Chloride 107 Carbon Dioxide 28 Anion Gap 5 BUN 30 H Creatinine 1.57 H Est GFR ( Amer) 38 L Est GFR (Non-Af Amer) 31 L Glucose 103 Calcium 9.0 04/20/18 13:26 Creatine Kinase 21 L Impressions: Carotid Doppler Study 04/20/18 00:00 IMPRESSION: NO HEMODYNAMICALLY SIGNIFICANT STENOSIS. Chest X-Ray 04/20/18 00:00 IMPRESSION: Focal asymmetric opacity in the right lateral lung base. This could represent pleural thickening or focal subpleural infiltrate. Head MRI 04/20/18 00:00 IMPRESSION: Diffusion-weighted images are positive for punctate acute nonhemorrhagic infarcts over the left frontal cortex. EVIDENCE OF ACUTE STROKE: Yes Assessment & Plan - Diagnosis (1) Acute cerebrovascular accident Is this a current diagnosis for this admission?: Yes Plan: Continues aspirin at the [facility] and continues to stroke protocol (2) Weakness Is this a current diagnosis for this admission?: Yes Plan: Most likely a possible from the stroke and the infections and the steroid (3) Urinary tract infection Qualifiers: Urinary tract infection type: site unspecified Hematuria presence: without hematuria Qualified Code(s): N39.0 - Urinary tract infection, site not specified Is this a current diagnosis for this admission?: Yes Plan: Start the patient on IV antibiotics and get the urine culture (4) Chronic kidney disease Qualifiers: Chronic kidney disease stage: stage 3 (moderate) Qualified Code(s): N18.3 - Chronic kidney disease, stage 3 (moderate) Is this a current diagnosis for this admission?: Yes Plan: Will check the chemistry patient's currently see Dr. 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 Is this a current diagnosis for this admission?: Yes Plan: Patient unable to tolerate any Aricept or Namenda medications in the past (6) Osteoarthritis Qualifiers: Osteoarthritis location: multiple joints Is this a current diagnosis for this admission?: Yes Plan: PRN pain medication (7) Acute blindness Is this a current diagnosis for this admission?: Yes (8) Hypertension Qualifiers: Hypertension type: essential hypertension Qualified Code(s): I10 - Essential (primary) hypertension Is this a current diagnosis for this admission?: Yes Plan: Continues current medication - Time Time Spent with patient: 15-24 minutes Medications reviewed and adjusted accordingly: Yes Anticipated discharge: SNF Within: within 24 hours - Inpatient Certification Based on my medical assessment, after consideration of the patient's comorbidities, presenting symptoms, or acuity I expect that the services needed warrant INPATIENT care.: Yes I certify that my determination is in accordance with my understanding of Medicare's requirements for reasonable and necessary INPATIENT services [42 CFR 412.3e].: Yes Medical Necessity: Need Close Monitoring Due to Risk of Patient Decompensation, Need for IV Antibiotics Post Hospital Care: D/C 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
[2018-04-22] MEDS: CEFTRIAXONE SODIUM 1,000 MG in DEXTROSE 5%-WATER 50 ML IV SCH (14:28)
[2018-04-22] MEDS: ESCITALOPRAM OXALATE 10 MG TABLET PO SCH (17:23)
[2018-04-22] MEDS ORDERED: FAMOTIDINE 20 MG TABLET PO SCH (22:00)
[2018-04-22] MEDS: ATORVASTATIN CALCIUM 20 MG TABLET PO SCH (22:20)
[2018-04-22] MEDS: INSULIN LISPRO 100 UNIT/ML 3 ML VIAL SUBCUT PRN (22:23)
[2018-04-23 06:25] LABS: MEAN CORPUSCULAR HEMOGLOBIN 30.4 pg (27.0-33.4); MEAN CORPUSCULAR HGB CONC 33.4 g/dL (32.0-36.0); MEAN CORPUSCULAR VOLUME 91 fl (80-97); PLATELET COUNT 159 10^3/uL (150-450); RED BLOOD COUNT 3.62 10^6/uL (3.72-5.28); RED CELL DISTRIBUTION WIDTH 14.2 % (11.5-14.0); WHITE BLOOD COUNT 7.2 10^3/uL (4.0-10.5)
[2018-04-23 06:38] LABS: ANION GAP 9 (5-19); BLOOD UREA NITROGEN 30 mg/dL (7-20); CARBON DIOXIDE 26 mmol/L (22-30); CHLORIDE 103 mmol/L (98-107); GLUCOSE 95 mg/dL (75-110); POTASSIUM 4.2 mmol/L (3.6-5.0); SODIUM 137.7 mmol/L (137-145)
[2018-04-23 06:45] LABS: ABSOLUTE LYMPHOCYTES# (MANUAL) 1.4 10^3/uL (0.5-4.7); ABSOLUTE MONOCYTES # (MANUAL) 0.3 10^3/uL (0.1-1.4); ABSOLUTE NEUTROPHILS# (MANUAL) 5.3 10^3/uL (1.7-8.2); BAND NEUTROPHILS % (MANUAL) 3 % (3-5); BASOPHILS % (MANUAL) 0 % (0-2); EOSINOPHILS % (MANUAL) 2 % (0-6); LYMPHOCYTES % (MANUAL) 18 % (13-45); MONOCYTES % (MANUAL) 4 % (3-13); SEGMENTED NEUTROPHILS % (MAN) 71 % (42-78); TOTAL CELLS COUNTED 100
[2018-04-23 06:47] LABS: ANISOCYTOSIS SLIGHT; PLATELET COMMENT ADEQUATE; POIKILOCYTOSIS SLIGHT; POLYCHROMASIA SLIGHT
--- NOTE | 2018-04-23 08:29 | PDOC TRANSFER SUMMARY ---
General - Admit/Disc Date/PCP Admission Date/Primary Care Provider: 04/20/18 10:48 DIANE ROBLES MD Discharge Date: 04/23/18 - Discharge Diagnosis (1) Acute cerebrovascular accident Is this a current diagnosis for this admission?: Yes Summary: Continues aspirin and statin patients need a physical therapy in the care home facilities (2) Weakness Is this a current diagnosis for this admission?: Yes Summary: Multifactorial currently stable (3) Urinary tract infection Is this a current diagnosis for this admission?: Yes Summary: Since received IV Rocephin and currently taking the p.o. Keflex (4) Chronic kidney disease Is this a current diagnosis for this admission?: Yes Summary: Currently all stable current creatinine is 1.39 patients currently see outpatients Dr. Wren (5) Dementia Is this a current diagnosis for this admission?: Yes Summary: Unable to tolerate the all this dementia medication in the past (6) Osteoarthritis Is this a current diagnosis for this admission?: Yes Summary: To use the as needed Tylenol and tramadol (7) Acute blindness Is this a current diagnosis for this admission?: Yes Summary: Patient's currently see the supervisor customer records division (8) Hypertension Is this a current diagnosis for this admission?: Yes Summary: Currently all stable - Additional Information Resuscitation Status: Do Not Resuscitate Discharge Diet: Diabetic Discharge Activity: Activity As Tolerated Prescriptions: Amlodipine Besylate [Norvasc 2.5 mg Tablet] 2.5 mg PO Q12 #60 tablet Aspirin [Ecotrin 325 mg EC Tablet] 325 mg PO DAILY #30 tabec Atorvastatin Calcium [Lipitor 20 mg Tablet] 20 mg PO QHS #30 tablet Cephalexin Monohydrate [Keflex 500 mg Capsule] 500 mg PO BID #14 capsule Prednisone [Deltasone 10 mg Tablet] 10 mg PO DAILY #4 tablet Home Medications: Cholecalciferol (Vitamin D3) [Vitamin D3 2000 unit Capsule] 2,000 unit PO DAILY 10/07/13 Metoprolol Tartrate [Lopressor 25 mg Tablet] 25 mg PO Q12 04/21/17 Hessel-3 Fatty Acids/Fish Oil [Fish Oil 1,000 mg Capsule] 1,000 mg PO DAILY 04/21 Escitalopram Oxalate [Lexapro 10 mg Tablet] 10 mg PO QPM 03/08/18 Linagliptin [Tradjenta] 5 mg PO DAILY 04/20/18 Ranitidine HCl [Zantac 150 mg Tablet] 150 mg PO BIDP PRN 04/20/18 Amlodipine Besylate [Norvasc 2.5 mg Tablet] 2.5 mg PO Q12 #60 tablet 04/23/18 Aspirin [Ecotrin 325 mg EC Tablet] 325 mg PO DAILY #30 tabec 04/23/18 Atorvastatin Calcium [Lipitor 20 mg Tablet] 20 mg PO QHS #30 tablet 04/23/18 Cephalexin Monohydrate [Keflex 500 mg Capsule] 500 mg PO BID #14 capsule Prednisone [Deltasone 10 mg Tablet] 10 mg PO DAILY #4 tablet 04/23/18 Tramadol HCl [Ultram 50 mg Tablet] 50 mg PO Q12HP PRN #60 04/23/18 History of Present Illness Admission Date/PCP: 04/20/18 10:48 DIANE ROBLES MD History of Present Illness: YSABEL CHEEMA is a 87 year old female This is a 87-year-old female's with a significant history of the dementia coming since last several months history of the hypertensions chronic kidney disease currently see Dr. 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 seen by the supervisor customer records division initially started on the high-dose of the steroidAnd patient had a temporal artery biopsy was done was also negative's patient was referred to the neuro-supervisor customer records division and [facility] which patient saw last week and it did use the tapering steroid According to the son once the patient's steroid was increase in the beginning patients more getting weaker now patient's blood sugar was running high and started on a Tradjenta and sliding scale and getting better but patient is getting more weak and weak Also significant history of the recurrent urinary tract infections and worsening the dementia patients since last several days unable to stand up and unable to walk and not feeling well and more confused and the patient was brought to the my office by her son and at this point decided to admit to the hospital for possible UTI weakness possible from the steroid effect versus recent stroke Hospital Course Hospital Course: This is a 87-year-old female admitting in the hospital due to the above conditions diagnosed with acute frontal strokes and also diagnosed with the urinary tract infections and questionable pneumonia and the patient's received IV antibiotics patient was put on aspirin and is statin She also have a significant underlying dementia patient also recently diagnosed with optic neuritis and I have a extensive workup done including the patient see a neuro-supervisor customer records division at [facility] and currently on a tapering dose of the prednisone Patient's otherwise remained stable Very extensive discussions with the patient's son regarding the patient's current condition and all the test results and because of the patient worsening the dementia worsening the medical conditions discharged to the rehab facilities for further close monitoring Patients definitely need to fall precautions Follow outpatients neuro-supervisor customer records division Check a CBC and Chem-7 in 1 week Continues to physical therapy Physical Exam Vital Signs: Temp Pulse Resp BP Pulse Ox 97.8 F 50 L 20 184/73 H 98 04/23/18 03:45 04/23/18 07:00 04/23/18 03:45 04/23/18 03:45 04/23/18 03:45 Intake & Output 04/22/18 04/23/18 04/24/18 06:59 06:59 06:59 Intake Total 673 1663 Balance 673 1663 Weight 55.3 kg 60.9 kg General appearance: PRESENT: no acute distress, well-developed, well-nourished Head exam: PRESENT: atraumatic, normocephalic Eye exam: PRESENT: conjunctiva pink, EOMI, PERRLA. ABSENT: scleral icterus Ear exam: PRESENT: normal external ear exam Mouth exam: PRESENT: moist, tongue midline Neck exam: ABSENT: carotid bruit, JVD, lymphadenopathy, thyromegaly Respiratory exam: PRESENT: clear to auscultation darryl. ABSENT: rales, rhonchi, wheezes Cardiovascular exam: PRESENT: RRR. ABSENT: diastolic murmur, rubs, systolic murmur Pulses: PRESENT: normal dorsalis pedis pul Vascular exam: PRESENT: normal capillary refill GI/Abdominal exam: PRESENT: normal bowel sounds, soft. ABSENT: distended, guarding, mass, organolmegaly, rebound, tenderness Rectal exam: PRESENT: deferred Extremities exam: PRESENT: full ROM. ABSENT: calf tenderness, clubbing, pedal edema Neurological exam: PRESENT: alert, awake, oriented to person. ABSENT: motor sensory deficit Psychiatric exam: PRESENT: appropriate affect, normal mood. ABSENT: homicidal ideation, suicidal ideation Skin exam: PRESENT: dry, intact, warm. ABSENT: cyanosis, rash Results Laboratory Results: 04/23/18 05:53 04/23/18 05:53 04/23/18 04/23/18 05:53 05:53 WBC 7.2 RBC 3.62 L Hgb 11.0 L Hct 33.0 L MCV 91 MCH 30.4 MCHC 33.4 RDW 14.2 H Plt Count 159 Seg Neutrophils % Not Reportable Lymphocytes % Not Reportable Monocytes % Not Reportable Eosinophils % Not Reportable Basophils % Not Reportable Absolute Neutrophils Not Reportable Absolute Lymphocytes Not Reportable Absolute Monocytes Not Reportable Absolute Eosinophils Not Reportable Absolute Basophils Not Reportable Sodium 137.7 Potassium 4.2 Chloride 103 Carbon Dioxide 26 Anion Gap 9 BUN 30 H Creatinine 1.39 H Est GFR ( Amer) 44 L Est GFR (Non-Af Amer) 36 L Glucose 95 Calcium 9.0 04/20/18 18:40 Catheterized Urine Urine Culture - Final Escherichia Coli Enterococcus Faecalis(Group D) 04/20/18 13:26 Creatine Kinase 21 L Impressions: Carotid Doppler Study 04/20/18 00:00 IMPRESSION: NO HEMODYNAMICALLY SIGNIFICANT STENOSIS. Chest X-Ray 04/20/18 00:00 IMPRESSION: Focal asymmetric opacity in the right lateral lung base. This could represent pleural thickening or focal subpleural infiltrate. Head MRI 04/20/18 00:00 IMPRESSION: Diffusion-weighted images are positive for punctate acute nonhemorrhagic infarcts over the left frontal cortex. EVIDENCE OF ACUTE STROKE: Yes Transfer Plan - Time Spent with Patient Time spent with patient: Greater than 30 Minutes Qualifiers - * PATIENT BEING DISCHARGED WITH ANY OF THE FOLLOWING DIAGNOSIS: No VTE patient discharged on overlapping Therapy?: Yes Plan Time Spent: Greater than 30 Minutes - She was discharged to the nursing facilities
[2018-04-23 08:31] VITALS: BP 144/62
[2018-04-23] MEDS: METOPROLOL TARTRATE 25 MG TABLET PO SCH (10:05)
[2018-04-23] MEDS: ASPIRIN 325 MG TABLET, ENT COATED PO SCH (10:06)
[2018-04-23] MEDS: SITAGLIPTIN PHOSPHATE 50 MG TABLET PO SCH (10:06)
[2018-04-23] MEDS: DOCUSATE SODIUM 100 MG CAPSULE PO SCH (10:07)
[2018-04-23] MEDS: PREDNISONE 10 MG TABLET PO SCH (10:07)
[2018-04-23] MEDS: AMLODIPINE BESYLATE 2.5 MG TABLET PO SCH (10:07)
[2018-04-23] MEDS: CHOLECALCIFEROL (D3) 1,000 UNIT TABLET PO SCH (10:07)
[2018-04-23] MEDS: ENOXAPARIN SODIUM INJ 30 MG/0.3 ML DISP.SYRIN SUBCUT SCH (10:08)
== END 2018-04-23 11:05 | DRG 65 ==
LOC: 4S 10:48 → 3S 20:01
PROVIDERS: ADMIT Family Medicine; ATTEND Family Medicine
PROC: 3E0234Z Introduction of Serum, Toxoid and Vaccine into Muscle, Percutaneous Approach (ICD-10-PCS; principal; 2018-04-23)
DX: I63.9 Cerebral infarction, unspecified (principal); N39.0 Urinary tract infection, site not specified; F03.91 Unspecified dementia, unspecified severity, with behavioral disturbance; I12.9 Hypertensive chronic kidney disease with stage 1 through stage 4 chronic kidney disease, or unspecified chronic kidney disease; E11.22 Type 2 diabetes mellitus with diabetic chronic kidney disease; N18.3 Chronic kidney disease, stage 3 (moderate); B96.20 Unspecified Escherichia coli [E. coli] as the cause of diseases classified elsewhere; M19.90 Unspecified osteoarthritis, unspecified site; H54.7 Unspecified visual loss; R53.1 Weakness; Z23 Encounter for immunization
CPT/HCPCS: 36415; 70551; 71045; 80048; 80053; 80061; 81001; 82550; 82962; 83735; 84439; 84443; 84481; 85025; 87040; 87086; 87088; 87186; 90686; 93005; 93010; 93306; 93880; G8987-GO; G8988-GO; G8996-GN; G8997-GN; G8998-GN; J0696; J1650; J1815; J7030; J7512

== ENCOUNTER 2018-05-02 14:49 | Inpatient (IN) | payer MEDICARE, BC, MEDICAID ==
[2018-05-02] MEDS ORDERED: NORMAL SALINE 1000 ML 1,000 ML IV ONE ×2 (15:40→16:39)
[2018-05-02 16:27] LABS: VENOUS BLOOD BASE EXCESS 9.5 mmol/L; VENOUS BLOOD HCO3 38.2 mmol/L (20-32); VENOUS BLOOD PH 7.37 (7.30-7.42)
[2018-05-02 16:30] LABS: HEMATOCRIT 31.9 % (36.0-47.0); HEMOGLOBIN 10.6 g/dL (12.0-15.5); MEAN CORPUSCULAR HGB CONC 33.2 g/dL (32.0-36.0); MEAN CORPUSCULAR VOLUME 94 fl (80-97); PLATELET COUNT 172 10^3/uL (150-450); RED BLOOD COUNT 3.42 10^6/uL (3.72-5.28); RED CELL DISTRIBUTION WIDTH 15.1 % (11.5-14.0); WHITE BLOOD COUNT 8.8 10^3/uL (4.0-10.5)
[2018-05-02 16:34] LABS: INTERNATIONAL RATION (INR) 1.01; PROTHROMBIN TIME 13.8 SEC (11.4-15.4)
[2018-05-02 16:42] LABS: ALANINE AMINOTRANSFERASE 18 U/L (9-52); ALBUMIN 2.9 g/dL (3.5-5.0); ALKALINE PHOSPHATASE 64 U/L (38-126); ANION GAP 7 (5-19); ASPARTATE AMINO TRANSFERASE 23 U/L (14-36); BILIRUBIN,DIRECT 0.2 mg/dL (0.0-0.4); BILIRUBIN,TOTAL 0.6 mg/dL (0.2-1.3); BLOOD UREA NITROGEN 53 mg/dL (7-20); CARBON DIOXIDE 32 mmol/L (22-30); CHLORIDE 106 mmol/L (98-107); GLUCOSE 236 mg/dL (75-110); POTASSIUM 4.4 mmol/L (3.6-5.0); SODIUM 144.5 mmol/L (137-145); TOTAL PROTEIN 6.2 g/dL (6.3-8.2)
[2018-05-02 16:43] LABS: ABSOLUTE LYMPHOCYTES# (MANUAL) 3.3 10^3/uL (0.5-4.7); ABSOLUTE MONOCYTES # (MANUAL) 0.4 10^3/uL (0.1-1.4); ABSOLUTE NEUTROPHILS# (MANUAL) 4.8 10^3/uL (1.7-8.2); BASOPHILS % (MANUAL) 1 % (0-2); EOSINOPHILS % (MANUAL) 2 % (0-6); LYMPHOCYTES % (MANUAL) 38 % (13-45); METAMYELOCYTES % (MANUAL) 1 % (0); MONOCYTES % (MANUAL) 4 % (3-13); SEGMENTED NEUTROPHILS % (MAN) 54 % (42-78); TOTAL CELLS COUNTED 100
[2018-05-02 16:44] LABS: ANISOCYTOSIS SLIGHT
[2018-05-02 16:45] LABS: PLATELET CLUMPS PRESENT; PLATELET COMMENT ADEQUATE
[2018-05-02 16:51] LABS: CALCIUM 12.2 mg/dL (8.4-10.2)
--- NOTE | 2018-05-02 17:05 | RADIOLOGY REPORT (SQ) ---
EXAM DESCRIPTION: CT HEAD WITHOUT COMPLETED DATE/TIME: 05/02/2018 4:38 pm REASON FOR STUDY: ams COMPARISON: 03/30/2018 TECHNIQUE: Axial images acquired through the brain without intravenous contrast. Images reviewed wi th bone, brain and subdural windows. Images stored on PACS. All CT scanners at this facility use dose modulation, iterative reconstruction, and/or weight based d osing when appropriate to reduce radiation dose to as low as reasonably achievable (ALARA). [facility]: Dose Right [facility]: CareDose [facility]: Dose Right [facility]: Teradose 4D [facility]: [employer] RADIATION DOSE: CT Rad equipment meets quality standard of care and radiation dose reduction techniq ues were employed. CTDIvol: 53.2 mGy. DLP: 1044 mGy-cm.mGy. LIMITATIONS: None. FINDINGS: VENTRICLES: Prominent. CEREBRUM: No masses. No hemorrhage. No midline shift. Areas of low density in the white matter mos t likely due to chronic micro-vascular ischemic change. No evidence for acute infarction. CEREBELLUM: No masses. No hemorrhage. No alteration of density. No evidence for acute infarction. EXTRAAXIAL SPACES: Age-related involutional change. No fluid collections. No masses. ORBITS AND GLOBE: No intra- or extraconal masses. Normal contour of globe without masses. CALVARIUM: No fracture. PARANASAL SINUSES: No fluid or mucosal thickening. SOFT TISSUES: No mass or hematoma. OTHER: No other significant finding. IMPRESSION: No acute intracranial findings. EVIDENCE OF ACUTE STROKE: NO. TECHNICAL DOCUMENTATION: JOB ID: [id number] Quality ID # [id number]: Final reports with documentation of one or more dose reduction techniques (e.g., Au tomated exposure control, adjustment of the mA and/or kV according to patient size, use of iterative reconstruction technique) 2010 [employer]- All Rights Reserved Reading location - IP/workstation name: [email or web address]
[2018-05-02 17:19] LABS: AMORPHOUS SEDIMENT,URINE TRACE /HPF; APPEARANCE,URINE CLOUDY; BILIRUBIN,URINE NEGATIVE (NEGATIVE); COLOR,URINE YELLOW; GLUCOSE, URINE NEGATIVE (NEGATIVE); KETONES,URINE NEGATIVE (NEGATIVE); LEUKOCYTE ESTERASE,URINE SMALL (NEGATIVE); NITRITE,URINE NEGATIVE (NEGATIVE); PROTEIN,URINE NEGATIVE (NEGATIVE); URINE SPECIFIC GRAVITY 1.016; UROBILINOGEN,URINE NEGATIVE mg/dL (<2.0)
--- NOTE | 2018-05-02 17:52 | RADIOLOGY REPORT (SQ) ---
EXAM DESCRIPTION: CHEST SINGLE VIEW COMPLETED DATE/TIME: 05/02/2018 4:43 pm REASON FOR STUDY: ams COMPARISON: 04/20/2018 TECHNIQUE: Single frontal radiographic view of the chest acquired. NUMBER OF VIEWS: One view. LIMITATIONS: None. FINDINGS: LUNGS AND PLEURA: No pneumothorax. Similar opacity at the right costophrenic angle. Slig ht increased opacity at the left costophrenic angle, possibly subsegmental atelectasis-small pleural effusion. MEDIASTINUM AND HILAR STRUCTURES: Stable. HEART AND VASCULAR STRUCTURES: Stable. BONES: No acute findings. HARDWARE: None in the chest. OTHER: No other significant finding. IMPRESSION: Similar opacity at the right costophrenic angle. Slight increased opacity at the left costophrenic angle, possibly subsegmental atelectasis-small pleural effusion. TECHNICAL DOCUMENTATION: JOB ID: [id number] 2010 [employer]- All Rights Reserved Reading location - IP/workstation name: [email or web address]
[2018-05-02] MEDS ORDERED: CEFTRIAXONE 1 GM/D5W RTU 1 GM/50 ML RTUPB IV ONE (18:38)
[2018-05-02] MEDS ORDERED: ACETAMINOPHEN 325 MG TABLET PO PRN (19:22)
[2018-05-02] MEDS ORDERED: IPRATROPIUM/ALBUTEROL 0.5-2.5 MG/3 ML AMPUL NEB PRN (19:22)
[2018-05-02] MEDS ORDERED: ONDANSETRON HCL INJ/PF 4 MG/2 ML SDV IV PRN (19:22)
[2018-05-02] MEDS ORDERED: DEXTROSE 50%-WATER 25 GM/50 ML DISP.SYRIN IV PRN ×2 (19:30)
[2018-05-02] MEDS ORDERED: INSULIN LISPRO 100 UNIT/ML 3 ML VIAL SUBCUT PRN (19:30)
[2018-05-02] MEDS ORDERED: DEXTROSE 40% GEL 15 GM TUBE PO PRN ×2 (19:30)
[2018-05-02] MEDS ORDERED: GLUCAGON,HUMAN RECOMB 1 MG INJ IM PRN (19:30)
[2018-05-02] MEDS ORDERED: DOCUSATE SODIUM 100 MG CAPSULE PO ONE (20:00)
[2018-05-02 20:05] LABS: ARTERIAL BLOOD BASE EXCESS 5.5 mmol/L; ARTERIAL BLOOD H2CO3 1.54 mmol/L (1.05-1.35); ARTERIAL BLOOD HCO3 31.3 mmol/L (20-24); ARTERIAL BLOOD O2 SATURATION 97.7 % (94-98); ARTERIAL BLOOD PCO2 51.2 mmHg (35-45); ARTERIAL BLOOD PO2 103.2 mmHg (80-100); ARTERIAL BLOOD TOTAL CO2 32.9 mmol/L (21-25)
[2018-05-02 20:08] LABS: ARTERIAL BLOOD FIO2 30%
--- NOTE | 2018-05-02 20:12 | ER Document Report ---
ED General - General Chief Complaint: Altered Mental Status Stated Complaint: ALTERED MENTAL STATUS Time Seen by Provider: 05/02/18 15:05 TRAVEL OUTSIDE OF THE [place] IN LAST 30 DAYS: No - HPI Patient complains to provider of: Altered mental status Notes: She is up and like her normal self sleeping more soundly over the last 3 days. Patient is from local halfway facility and is a DNR according family members. Denies any fevers chills nausea vomiting states decreased p.o. intake along with patient otherwise will answer some simple questions at bedside. Patient was clinically dehydrated with dry mucous membranes. Patient has been requiring increased oxygen since last few days as well. Patient does have a history of recurrent UTIs. Has a history of a recent stroke at the end of March. Otherwise patient vital signs are currently stable. - Related Data Allergies/Adverse Reactions: No Known Allergies Allergy (Verified 03/08/18 09:38) Past Medical History - Social History Smoking Status: Never Smoker Chew tobacco use (# tins/day): No Frequency of alcohol use: None Drug Abuse: None Family History: Reviewed & Not Pertinent Patient has suicidal ideation: No Patient has homicidal ideation: No - Past Medical History Cardiac Medical History: Reports: Hx Hypertension - CONTROLLED Denies: Hx Heart Attack Pulmonary Medical History: Denies: Hx Asthma, Hx Bronchitis, Hx COPD, Hx Pneumonia Neurological Medical History: Denies: Hx Cerebrovascular Accident, Hx Seizures Endocrine Medical History: Reports: Hx Diabetes Mellitus Type 2 Renal/ Medical History: Denies: Hx Peritoneal Dialysis GI Medical History: Reports: Hx Gastroesophageal Reflux Disease. Denies: Hx Hepatitis, Hx Hiatal Hernia, Hx Ulcer Musculoskeletal Medical History: Reports Hx Arthritis Psychiatric Medical History: Reports: Hx Dementia, Hx Depression Infectious Medical History: Denies: Hx Hepatitis Past Surgical History: Reports: Hx Mastectomy - LUMPECTOMY NO RESTRICTIONS. Denies: Hx Open Heart Surgery, Hx Pacemaker - Immunizations Hx Diphtheria, Pertussis, Tetanus Vaccination: No Hx Pneumococcal Vaccination: 03/29/17 Review of Systems - Review of Systems -: Yes ROS unobtainable due to patient's medical condition - Altered mental status dementia Physical Exam - Vital signs Vitals: Resp Pulse Ox 17 99 05/02/18 15:38 05/02/18 15:38 Interpretation: Normal - General General appearance: Appears well, Alert - HEENT Head: Normocephalic, Atraumatic Eyes: Normal Pupils: PERRL - Respiratory Respiratory status: No respiratory distress Chest status: Nontender Breath sounds: Normal Chest palpation: Normal - Cardiovascular Rhythm: Regular Heart sounds: Normal auscultation Murmur: No - Abdominal Inspection: Normal Distension: No distension Bowel sounds: Normal Tenderness: Nontender Organomegaly: No organomegaly - Back Back: Normal, Nontender - Extremities General upper extremity: Normal inspection, Nontender, Normal color, Normal ROM , Normal temperature General lower extremity: Normal inspection, Nontender, Normal color, Normal ROM , Normal temperature, Normal weight bearing. No: Lito's sign - Neurological Neuro grossly intact: Yes Cognition: Confused [place] Coma Scale Eye Opening: To Voice [place]ina Coma Scale Verbal: Confused [place] Coma Scale Motor: Obeys Commands [place]ina Coma Scale Total: 13 Speech: Normal Sensory: Normal - Psychological Associated symptoms: Confused - Skin Skin Temperature: Warm Skin Moisture: Dry Skin Color: Normal Course - Re-evaluation Re-evalutation: 05/03/18 00:04 Small amount of bacteria seen in the patient's urine patient's VBG does show hypercapnia however no signs of acidosis unfortunately there is no further blood gases obtained on this patient during her visit here in ER unclear if this is chronic or acute. Patient was placed on BiPAP. Chest x-ray also showed possible early consolidation consistent with pneumonia. Patient was given IV fluids discussed with the admitting physician Dr. Saeed agrees to medical for admission at this time - Vital Signs Vital signs: Temp Pulse Resp BP Pulse Ox 98.2 F 74 18 152/61 H 100 05/02/18 21:54 05/02/18 21:54 05/02/18 21:54 05/02/18 21:54 05/02/18 21:54 - Laboratory Result Diagrams: 05/02/18 16:10 05/02/18 16:10 Laboratory results interpreted by me: 05/02/18 05/02/18 05/02/18 16:10 16:10 16:10 RBC 3.42 L Hgb 10.6 L Hct 31.9 L RDW 15.1 H Metamyelocytes % 1 H VBG pCO2 68.0 H* VBG HCO3 38.2 H Carbon Dioxide 32 H BUN 53 H Creatinine 1.78 H Est GFR ( Amer) 33 L Est GFR (Non-Af Amer) 27 L Glucose 236 H Calcium 12.2 H* Ionized Calcium Ryley Magnesium Total Protein 6.2 L Albumin 2.9 L Ur Leukocyte Esterase Urine Ascorbic Acid 05/02/18 05/02/18 05/02/18 16:10 17:02 17:12 RBC Hgb Hct RDW Metamyelocytes % VBG pCO2 VBG HCO3 Carbon Dioxide BUN Creatinine Est GFR ( Amer) Est GFR (Non-Af Amer) Glucose Calcium Ionized Calcium Ryley 1.62 H Magnesium 2.5 H Total Protein Albumin Ur Leukocyte Esterase SMALL H Urine Ascorbic Acid 20 H Discharge - Discharge Clinical Impression: Dementia, Altered mental state, Pneumonia, Urinary tract infection, DNR (do not resuscitate) Condition: Fair Disposition: ADMITTED INPATIENT Admitting Provider: Cl Saeed covering Unit Admitted: Medical Floor
[2018-05-02] MEDS: NORMAL SALINE 1000 ML 1,000 ML IV PRN (20:48)
[2018-05-02] MEDS: FAMOTIDINE 20 MG TABLET PO SCH (21:49)
--- NOTE | 2018-05-02 22:19 | EKG REPORT ---
SEVERITY:- ABNORMAL ECG - SINUS RHYTHM LVH WITH SECONDARY REPOLARIZATION ABNORMALITY : Confirmed by: Elyssa Iraheta MD 02-May-2018 22:18:38
[2018-05-03 05:34] LABS: HEMATOCRIT 30.2 % (36.0-47.0); MEAN CORPUSCULAR HEMOGLOBIN 31.1 pg (27.0-33.4); MEAN CORPUSCULAR VOLUME 94 fl (80-97); PLATELET COUNT 157 10^3/uL (150-450); RED CELL DISTRIBUTION WIDTH 14.7 % (11.5-14.0); WHITE BLOOD COUNT 8.6 10^3/uL (4.0-10.5)
[2018-05-03 05:46] LABS: ALANINE AMINOTRANSFERASE 14 U/L (9-52); ALBUMIN 2.8 g/dL (3.5-5.0); ALKALINE PHOSPHATASE 65 U/L (38-126); ANION GAP 5 (5-19); ASPARTATE AMINO TRANSFERASE 23 U/L (14-36); BILIRUBIN,DIRECT 0.3 mg/dL (0.0-0.4); BILIRUBIN,TOTAL 0.6 mg/dL (0.2-1.3); BLOOD UREA NITROGEN 43 mg/dL (7-20); CALCIUM 11.1 mg/dL (8.4-10.2); CARBON DIOXIDE 34 mmol/L (22-30); CHLORIDE 111 mmol/L (98-107); GLUCOSE 149 mg/dL (75-110); POTASSIUM 4.8 mmol/L (3.6-5.0); SODIUM 150.1 mmol/L (137-145)
[2018-05-03 06:18] LABS: ABSOLUTE LYMPHOCYTES# (MANUAL) 2.2 10^3/uL (0.5-4.7); ABSOLUTE NEUTROPHILS# (MANUAL) 5.3 10^3/uL (1.7-8.2); BAND NEUTROPHILS % (MANUAL) 2 % (3-5); BASOPHILS % (MANUAL) 0 % (0-2); EOSINOPHILS % (MANUAL) 0 % (0-6); LYMPHOCYTES % (MANUAL) 26 % (13-45); MONOCYTES % (MANUAL) 12 % (3-13); SEGMENTED NEUTROPHILS % (MAN) 60 % (42-78); TOTAL CELLS COUNTED 100
[2018-05-03 06:20] LABS: ANISOCYTOSIS SLIGHT; OVALOCYTES SLIGHT; PLATELET COMMENT ADEQUATE; POIKILOCYTOSIS SLIGHT; TARGET CELLS SLIGHT
[2018-05-03 06:31] LABS: ARTERIAL BLOOD BASE EXCESS 5.8 mmol/L; ARTERIAL BLOOD H2CO3 1.53 mmol/L (1.05-1.35); ARTERIAL BLOOD HCO3 31.3 mmol/L (20-24); ARTERIAL BLOOD O2 SATURATION 98.6 % (94-98); ARTERIAL BLOOD PCO2 50.8 mmHg (35-45); ARTERIAL BLOOD PH 7.41 (7.35-7.45); ARTERIAL BLOOD PO2 133.6 mmHg (80-100); ARTERIAL BLOOD TOTAL CO2 32.9 mmol/L (21-25)
[2018-05-03 06:33] LABS: ARTERIAL BLOOD FIO2 30%
[2018-05-03] MEDS: DOCUSATE SODIUM 100 MG CAPSULE PO SCH ×2 (10:35→17:50)
[2018-05-03] MEDS: FAMOTIDINE 20 MG TABLET PO SCH (10:35)
[2018-05-03] MEDS: FUROSEMIDE INJ/PF 20 MG/2 ML SDV IV SCH (10:35)
[2018-05-03] MEDS: ENOXAPARIN SODIUM INJ 30 MG/0.3 ML DISP.SYRIN SUBCUT SCH (10:36)
[2018-05-03] MEDS: NORMAL SALINE 1000 ML 1,000 ML IV PRN (10:47)
[2018-05-03] MEDS ORDERED: ONDANSETRON HCL INJ/PF 4 MG/2 ML SDV IV PRN (11:00)
--- NOTE | 2018-05-03 13:34 | PDOC H&P ---
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 patient was on a long dose of the steroid and was tapering with the nonconclusive biopsy of the temporal artery was discharged in a nursing facility last week According to the family until Thursday patient was doing good and in patients and not eating not drinking much not feeling well and the patient's have a lab work done was calcium was 12.2 and patient was very altered mental status and brought to the emergency department Patient also under acute renal failure and chronic kidney disease and the patient initial workup otherwise all stable except patient PCO2 is very high Patient initially put on the BiPAP in the ER and PCO2 is coming down to the 50 Have a significant dementia and worsening since last 6-month Patient seen and examined in the emergency department and discussed with the son regarding the patient's current condition with ongoing problems with poor p.o. intake dehydration's hypercalcemia and elevated PCO2 and admitting in the hospital and possible urinary tract infections Patient is currently DNR and DNI according to the son Past Medical History Cardiac Medical History: Reports: Hypertension - CONTROLLED Denies: Myocardial Infarction Pulmonary Medical History: Denies: Asthma, Bronchitis, Chronic Obstructive Pulmonary Disease (COPD), Pneumonia Neurological Medical History: Denies: Seizures Endocrine Medical History: Reports: Diabetes Mellitus Type 2 Renal/ Medical History: Reports: Chronic Kidney Disease GI Medical History: Reports: Gastroesophageal Reflux Disease Denies: Hepatitis, Hiatal Hernia Musculoskeltal Medical History: Reports: Arthritis Psychiatric Medical History: Reports: Dementia, Depression Hematology: Denies: Anemia, Sickle Cell Disease Past Surgical History Past Surgical History: Reports: Mastectomy - LUMPECTOMY NO RESTRICTIONS Denies: Amputation, Pacemaker Social History Smoking Status: Never Smoker Frequency of Alcohol Use: None Hx Recreational Drug Use: No Drugs: None Hx Prescription Drug Abuse: No - Advance Directive Resuscitation Status: Do Not Resuscitate Family History Family History: Reviewed & Not Pertinent Parental Family History Reviewed: Yes Children Family History Reviewed: Yes Sibling(s) Family History Reviewed.: Yes Medication/Allergy Home Medications: Cholecalciferol (Vitamin D3) [Vitamin D3 2000 unit Capsule] 2,000 unit PO QAM Metoprolol Tartrate [Lopressor 25 mg Tablet] 25 mg PO Q12 04/21/17 [place]-3 Fatty Acids/Fish Oil [Fish Oil 1,000 mg Capsule] 1,000 mg PO QAM Escitalopram Oxalate [Lexapro 10 mg Tablet] 10 mg PO QPM 03/08/18 Linagliptin [Tradjenta] 5 mg PO DAILY 04/20/18 Ranitidine HCl [Zantac 150 mg Tablet] 150 mg PO BIDP PRN 04/20/18 Amlodipine Besylate [Norvasc 2.5 mg Tablet] 2.5 mg PO Q12 #60 tablet 04/23/18 Atorvastatin Calcium [Lipitor 20 mg Tablet] 20 mg PO QHS #30 tablet 04/23/18 Tramadol HCl [Ultram 50 mg Tablet] 50 mg PO Q12HP PRN #60 04/23/18 Aspirin [Ecotrin 325 mg EC Tablet] 325 mg PO QAM 05/03/18 Allergies/Adverse Reactions: No Known Allergies Allergy (Verified 05/03/18 08:44) Review of Systems ROS unobtainable: Due to mental status All systems: reviewed and no additional remarkable complaints except as stated Physical Exam Vital Signs: Temp Pulse Resp BP Pulse Ox 98.2 F 71 12 150/59 H 99 05/03/18 08:00 05/03/18 09:20 05/03/18 09:20 05/03/18 08:00 05/03/18 09:20 Intake & Output 05/02/18 05/03/18 05/04/18 06:59 06:59 06:59 Intake Total 338 979 Output Total 380 Balance -42 979 Weight 56.2 kg Physical Exam: Patient is alert awake but significant dementia General appearance: PRESENT: no acute distress Head exam: PRESENT: atraumatic, normocephalic Eye exam: PRESENT: conjunctiva pink, EOMI, PERRLA. ABSENT: scleral icterus Ear exam: PRESENT: normal external ear exam Mouth exam: PRESENT: moist, tongue midline Neck exam: PRESENT: full ROM. ABSENT: carotid bruit, JVD, lymphadenopathy, thyromegaly Respiratory exam: PRESENT: clear to auscultation darryl Cardiovascular exam: PRESENT: RRR. ABSENT: diastolic murmur, rubs, systolic murmur Pulses: PRESENT: normal dorsalis pedis pul, +2 pedal pulses bilateral Vascular exam: PRESENT: normal capillary refill GI/Abdominal exam: PRESENT: normal bowel sounds, soft. ABSENT: distended, guarding, mass, organolmegaly, rebound, tenderness Rectal exam: PRESENT: deferred Extremities exam: ABSENT: pedal edema Neurological exam: PRESENT: alert, awake. ABSENT: motor sensory deficit Psychiatric exam: PRESENT: appropriate affect, normal mood. ABSENT: homicidal ideation, suicidal ideation Skin exam: PRESENT: dry, intact, warm. ABSENT: cyanosis, rash Results Laboratory Results: 05/03/18 04:54 05/03/18 04:54 05/02/18 05/03/18 05/03/18 19:46 04:54 04:54 WBC 8.6 RBC 3.20 L Hgb 10.0 L Hct 30.2 L MCV 94 MCH 31.1 MCHC 33.0 RDW 14.7 H Plt Count 157 Seg Neutrophils % Not Reportable Lymphocytes % Not Reportable Monocytes % Not Reportable Eosinophils % Not Reportable Basophils % Not Reportable Absolute Neutrophils Not Reportable Absolute Lymphocytes Not Reportable Absolute Monocytes Not Reportable Absolute Eosinophils Not Reportable Absolute Basophils Not Reportable Carbonic Acid 1.54 H HCO3/H2CO3 Ratio 20:1 ABG pH 7.40 ABG pCO2 51.2 H ABG pO2 103.2 H ABG HCO3 31.3 H ABG O2 Saturation 97.7 ABG Base Excess 5.5 FiO2 30% Sodium Potassium Chloride Carbon Dioxide Anion Gap BUN Creatinine Est GFR ( Amer) Est GFR (Non-Af Amer) Glucose Calcium Magnesium Total Bilirubin AST ALT Alkaline Phosphatase Ammonia Total Protein Cancelled Albumin Cancelled 05/03/18 05/03/18 05/03/18 04:54 04:54 06:10 WBC RBC Hgb Hct MCV MCH MCHC RDW Plt Count Seg Neutrophils % Lymphocytes % Monocytes % Eosinophils % Basophils % Absolute Neutrophils Absolute Lymphocytes Absolute Monocytes Absolute Eosinophils Absolute Basophils Carbonic Acid 1.53 H HCO3/H2CO3 Ratio 20:1 ABG pH 7.41 ABG pCO2 50.8 H ABG pO2 133.6 H ABG HCO3 31.3 H ABG O2 Saturation 98.6 H ABG Base Excess 5.8 FiO2 30% Sodium 150.1 H Potassium 4.8 Chloride 111 H Carbon Dioxide 34 H Anion Gap 5 BUN 43 H Creatinine 1.57 H Est GFR ( Amer) 38 L Est GFR (Non-Af Amer) 31 L Glucose 149 H Calcium 11.1 H Magnesium 2.3 Total Bilirubin 0.6 AST 23 ALT 14 Alkaline Phosphatase 65 Ammonia < 8.7 L Total Protein 6.0 L Albumin 2.8 L 05/03/18 04:54 NT-Pro-B Natriuret Pep 1410 H Impressions: Chest X-Ray 05/02/18 15:39 IMPRESSION: Similar opacity at the right costophrenic angle. Slight increased opacity at the left costophrenic angle, possibly subsegmental atelectasis-small pleural effusion. Head CT 05/02/18 15:39 IMPRESSION: No acute intracranial findings. EVIDENCE OF ACUTE STROKE: NO. Assessment & Plan - Diagnosis (1) Altered mental state Qualifiers: Altered mental status type: disorientation Qualified Code(s): R41.0 - Disorientation, unspecified Is this a current diagnosis for this admission?: Yes Plan: Most likely are due to the urinary tract infections hypercalcemia renal failure most likely a metabolic (2) Hypercalcemia Is this a current diagnosis for this admission?: Yes Plan: Due to the underlying dehydration's and the renal failure we will give IV fluid and IV Lasix consult the nephrology (3) Acute renal failure Qualifiers: Acute renal failure type: unspecified Qualified Code(s): N17.9 - Acute kidney failure, unspecified Is this a current diagnosis for this admission?: Yes Plan: Will continues to IV fluid (4) Hypercapnic respiratory failure Qualifiers: Chronicity: acute on chronic Qualified Code(s): J96.22 - Acute and chronic respiratory failure with hypercapnia Is this a current diagnosis for this admission?: Yes Plan: Put the patient on a BiPAP (5) Cerebrovascular disease Is this a current diagnosis for this admission?: Yes Plan: Continues to aspirin and a statin (6) Dehydration Is this a current diagnosis for this admission?: Yes Plan: Continues to IV fluid (7) Osteoarthritis Qualifiers: Osteoarthritis location: unspecified site Is this a current diagnosis for this admission?: Yes (8) Dementia Qualifiers: Dementia type: vascular dementia Dementia behavioral disturbance: with behavioral disturbance Qualified Code(s): F01.51 - Vascular dementia with behavioral disturbance Is this a current diagnosis for this admission?: Yes Plan: Patient unable to tolerateAny dementia medication (9) Urinary tract infection Qualifiers: Urinary tract infection type: site unspecified Is this a current diagnosis for this admission?: Yes Plan: Continues to IV antibiotic (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 Is this a current diagnosis for this admission?: Yes Plan: Patient is currently finished the steroid will check the cortisol level (11) Elevated troponin Is this a current diagnosis for this admission?: Yes Plan: Patient has some mild underlying diastolic congestive heart failure - Time Time Spent: 50 to 70 Minutes Medications reviewed and adjusted accordingly: Yes Anticipated discharge: SNF Within: Other - Inpatient Certification Based on my medical assessment, after consideration of the patient's comorbidities, presenting symptoms, or acuity I expect that the services needed warrant INPATIENT care.: Yes I certify that my determination is in accordance with my understanding of Medicare's requirements for reasonable and necessary INPATIENT services [42 CFR 412.3e].: Yes Medical Necessity: Need Close Monitoring Due to Risk of Patient Decompensation, Need For IV Fluids, Need for IV Antibiotics Post Hospital Care: D/C 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
[2018-05-03] MEDS: ACETAMINOPHEN 325 MG TABLET PO PRN (14:04)
--- NOTE | 2018-05-03 14:36 | PDOC PROGRESS REPORT ---
Subjective Progress Note for:: 05/03/18 Subjective:: Patient is feeling much better patient still sodium is elevated but calcium is coming down Awake'sAnd answer all questions but still very demented Reason For Visit: HYPERCALCIUMIA,AMS,UTI,RENAL FAILURE Physical Exam Vital Signs: Temp Pulse Resp BP Pulse Ox 98.3 F 81 16 144/54 H 100 05/03/18 12:57 05/03/18 12:57 05/03/18 12:57 05/03/18 12:57 05/03/18 12:57 Intake & Output 05/02/18 05/03/18 05/04/18 06:59 06:59 06:59 Intake Total 338 979 Output Total 380 Balance -42 979 Weight 56.2 kg General appearance: PRESENT: no acute distress, well-developed, well-nourished Head exam: PRESENT: atraumatic, normocephalic Eye exam: PRESENT: conjunctiva pink, EOMI, PERRLA. ABSENT: scleral icterus Ear exam: PRESENT: normal external ear exam Mouth exam: PRESENT: moist, tongue midline Neck exam: PRESENT: full ROM. ABSENT: carotid bruit, JVD, lymphadenopathy, thyromegaly Respiratory exam: PRESENT: clear to auscultation darryl Cardiovascular exam: PRESENT: RRR. ABSENT: diastolic murmur, rubs, systolic murmur Pulses: PRESENT: normal dorsalis pedis pul, +2 pedal pulses bilateral Vascular exam: PRESENT: normal capillary refill GI/Abdominal exam: PRESENT: normal bowel sounds, soft. ABSENT: distended, guarding, mass, organolmegaly, rebound, tenderness Rectal exam: PRESENT: deferred Extremities exam: ABSENT: pedal edema Neurological exam: PRESENT: alert, awake. ABSENT: motor sensory deficit Psychiatric exam: PRESENT: appropriate affect, normal mood. ABSENT: homicidal ideation, suicidal ideation Skin exam: PRESENT: dry, intact, warm. ABSENT: cyanosis, rash Results Laboratory Results: 05/03/18 04:54 05/03/18 04:54 05/02/18 05/03/18 05/03/18 19:46 04:54 04:54 WBC 8.6 RBC 3.20 L Hgb 10.0 L Hct 30.2 L MCV 94 MCH 31.1 MCHC 33.0 RDW 14.7 H Plt Count 157 Seg Neutrophils % Not Reportable Lymphocytes % Not Reportable Monocytes % Not Reportable Eosinophils % Not Reportable Basophils % Not Reportable Absolute Neutrophils Not Reportable Absolute Lymphocytes Not Reportable Absolute Monocytes Not Reportable Absolute Eosinophils Not Reportable Absolute Basophils Not Reportable Carbonic Acid 1.54 H HCO3/H2CO3 Ratio 20:1 ABG pH 7.40 ABG pCO2 51.2 H ABG pO2 103.2 H ABG HCO3 31.3 H ABG O2 Saturation 97.7 ABG Base Excess 5.5 FiO2 30% Sodium Potassium Chloride Carbon Dioxide Anion Gap BUN Creatinine Est GFR ( Amer) Est GFR (Non-Af Amer) Glucose Calcium Magnesium Total Bilirubin AST ALT Alkaline Phosphatase Ammonia Total Protein Cancelled Albumin Cancelled 05/03/18 05/03/18 05/03/18 04:54 04:54 06:10 WBC RBC Hgb Hct MCV MCH MCHC RDW Plt Count Seg Neutrophils % Lymphocytes % Monocytes % Eosinophils % Basophils % Absolute Neutrophils Absolute Lymphocytes Absolute Monocytes Absolute Eosinophils Absolute Basophils Carbonic Acid 1.53 H HCO3/H2CO3 Ratio 20:1 ABG pH 7.41 ABG pCO2 50.8 H ABG pO2 133.6 H ABG HCO3 31.3 H ABG O2 Saturation 98.6 H ABG Base Excess 5.8 FiO2 30% Sodium 150.1 H Potassium 4.8 Chloride 111 H Carbon Dioxide 34 H Anion Gap 5 BUN 43 H Creatinine 1.57 H Est GFR ( Amer) 38 L Est GFR (Non-Af Amer) 31 L Glucose 149 H Calcium 11.1 H Magnesium 2.3 Total Bilirubin 0.6 AST 23 ALT 14 Alkaline Phosphatase 65 Ammonia < 8.7 L Total Protein 6.0 L Albumin 2.8 L 05/03/18 04:54 NT-Pro-B Natriuret Pep 1410 H Impressions: Chest X-Ray 05/02/18 15:39 IMPRESSION: Similar opacity at the right costophrenic angle. Slight increased opacity at the left costophrenic angle, possibly subsegmental atelectasis-small pleural effusion. Head CT 05/02/18 15:39 IMPRESSION: No acute intracranial findings. EVIDENCE OF ACUTE STROKE: NO. Assessment & Plan - Diagnosis (1) Altered mental state Qualifiers: Altered mental status type: disorientation Qualified Code(s): R41.0 - Disorientation, unspecified Is this a current diagnosis for this admission?: Yes Plan: Multifactorial due to the UTI and hypercalcemia and metabolic (2) Hypercalcemia Is this a current diagnosis for this admission?: Yes Plan: Currently all improving continues to IV fluid (3) Acute renal failure Qualifiers: Acute renal failure type: unspecified Qualified Code(s): N17.9 - Acute kidney failure, unspecified Is this a current diagnosis for this admission?: Yes Plan: Will continues to IV fluid (4) Hypercapnic respiratory failure Qualifiers: Chronicity: acute on chronic Qualified Code(s): J96.22 - Acute and chronic respiratory failure with hypercapnia Is this a current diagnosis for this admission?: Yes Plan: Put the patient on a BiPAP (5) Cerebrovascular disease Is this a current diagnosis for this admission?: Yes Plan: Continues to aspirin and a statin (6) Dehydration Is this a current diagnosis for this admission?: Yes Plan: Continues to IV fluid (7) Osteoarthritis Qualifiers: Osteoarthritis location: unspecified site Is this a current diagnosis for this admission?: Yes (8) Dementia Qualifiers: Dementia type: vascular dementia Dementia behavioral disturbance: with behavioral disturbance Qualified Code(s): F01.51 - Vascular dementia with behavioral disturbance Is this a current diagnosis for this admission?: Yes Plan: Patient unable to tolerateAny dementia medication (9) Urinary tract infection Qualifiers: Urinary tract infection type: site unspecified Is this a current diagnosis for this admission?: Yes Plan: Continues to IV antibiotic (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 Is this a current diagnosis for this admission?: Yes (11) Elevated troponin Is this a current diagnosis for this admission?: Yes Plan: Patient has some mild underlying diastolic congestive heart failure - Time Time Spent with patient: 15-24 minutes Medications reviewed and adjusted accordingly: Yes Anticipated discharge: SNF Within: Other - Inpatient Certification Based on my medical assessment, after consideration of the patient's comorbidities, presenting symptoms, or acuity I expect that the services needed warrant INPATIENT care.: Yes I certify that my determination is in accordance with my understanding of Medicare's requirements for reasonable and necessary INPATIENT services [42 CFR 412.3e].: Yes Medical Necessity: Need Close Monitoring Due to Risk of Patient Decompensation, Need For IV Fluids, Need for IV Antibiotics Post Hospital Care: D/C Pulmonary Fellow Documentation - Plan Summary Plan Summary: Continues to current medication
[2018-05-03] MEDS ORDERED: (PENDING PHARMACY ID) (Ranitidine Hcl [Zantac 150 Mg Tablet] 150 MG) PO PRN (16:50)
[2018-05-03] MEDS: ESCITALOPRAM OXALATE 10 MG TABLET PO SCH (17:50)
[2018-05-03] MEDS ORDERED: CEFTRIAXONE 1 GM/D5W RTU 1 GM/50 ML RTUPB IV SCH (18:00)
[2018-05-03] MEDS ORDERED: CEFTRIAXONE SODIUM 1,000 MG in DEXTROSE 5%-WATER 50 ML IV SCH (18:00)
[2018-05-03] MEDS ORDERED: FAMOTIDINE 20 MG TABLET PO PRN (18:35)
--- NOTE | 2018-05-03 18:48 | PDOC CONSULTATION ---
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 Came in over the weekend because of the weakness and a stroke like symptoms. According to the family until Thursday patient was doing good. After Thursday she was not eating or drinking much. The family brought her in because she still was not feeling well. In the ER the patient's labs showed a calcium of 12.2, patients PCO2 was high. Patient initially put on the BiPAP in the ER and PCO2 is came down to the 50. Also looked to have a possible UTI with current urine cultures pending. Upon examination today, the patient was altered. According to Heather, the nurse in charge of her care, this is her baseline. She was not able to provide much of a history to me or answer many questions. Most of the history was retrieved from previous notes and the nurse. Patient has a baseline creatinine between 1.4 and 1.6. Past Medical History Cardiac Medical History: Denies: Myocardial Infarction Pulmonary Medical History: Denies: Asthma, Bronchitis, Chronic Obstructive Pulmonary Disease (COPD), Pneumonia Neurological Medical History: Denies: Seizures Endocrine Medical History: Reports: Diabetes Mellitus Type 2 GI Medical History: Reports: Gastroesophageal Reflux Disease Denies: Hepatitis, Hiatal Hernia Musculoskeltal Medical History: Reports: Arthritis Psychiatric Medical History: Reports: Dementia, Depression Past Surgical History Past Surgical History: Reports: Mastectomy - LUMPECTOMY NO RESTRICTIONS Denies: Pacemaker Social History Smoking Status: Never Smoker Frequency of Alcohol Use: None Hx Recreational Drug Use: No Drugs: None Hx Prescription Drug Abuse: No - Advance Directive Resuscitation Status: Do Not Resuscitate Family History Parental Family History Reviewed: No Children Family History Reviewed: Unknown Sibling(s) Family History Reviewed.: Unknown Medication/Allergy Home Medications: Cholecalciferol (Vitamin D3) [Vitamin D3 2000 unit Capsule] 2,000 unit PO QAM Metoprolol Tartrate [Lopressor 25 mg Tablet] 25 mg PO Q12 04/21/17 [place]-3 Fatty Acids/Fish Oil [Fish Oil 1,000 mg Capsule] 1,000 mg PO QAM Escitalopram Oxalate [Lexapro 10 mg Tablet] 10 mg PO QPM 03/08/18 Linagliptin [Tradjenta] 5 mg PO DAILY 04/20/18 Ranitidine HCl [Zantac 150 mg Tablet] 150 mg PO BIDP PRN 04/20/18 Amlodipine Besylate [Norvasc 2.5 mg Tablet] 2.5 mg PO Q12 #60 tablet 04/23/18 Atorvastatin Calcium [Lipitor 20 mg Tablet] 20 mg PO QHS #30 tablet 04/23/18 Tramadol HCl [Ultram 50 mg Tablet] 50 mg PO Q12HP PRN #60 04/23/18 Aspirin [Ecotrin 325 mg EC Tablet] 325 mg PO QAM 05/03/18 Allergies/Adverse Reactions: No Known Allergies Allergy (Verified 05/03/18 08:44) Review of Systems Constitutional: PRESENT: anorexia, weakness. ABSENT: fever(s) Cardiovascular: ABSENT: chest pain, dyspnea on exertion Respiratory: ABSENT: dyspnea Gastrointestinal: PRESENT: nausea. ABSENT: vomiting Neurological: PRESENT: confusion, weakness Physical Exam Vital Signs: Temp Pulse Resp BP Pulse Ox 97.7 F 77 20 130/50 H 100 05/03/18 16:00 05/03/18 16:00 05/03/18 16:00 05/03/18 16:00 05/03/18 16:00 Intake & Output 05/02/18 05/03/18 05/04/18 06:59 06:59 06:59 Intake Total 338 1099 Output Total 380 200 Balance -42 899 Weight 56.2 kg General appearance: PRESENT: no acute distress, well-developed, well-nourished Mouth exam: PRESENT: dry mucosa, neck supple. ABSENT: moist Neck exam: PRESENT: full ROM. ABSENT: JVD Respiratory exam: PRESENT: clear to auscultation darryl. ABSENT: crackles, rales, rhonchi, wheezes Cardiovascular exam: PRESENT: RRR, +S1, +S2 GI/Abdominal exam: PRESENT: soft. ABSENT: tenderness Extremities exam: ABSENT: pedal edema, tenderness, +1 edema, +2 edema Musculoskeletal exam: PRESENT: normal inspection. ABSENT: tenderness Neurological exam: PRESENT: altered, awake, oriented to place, oriented to time , CN II-XII grossly intact. ABSENT: oriented to person, oriented to situation, motor sensory deficit Skin exam: PRESENT: dry, intact, warm Results Laboratory Results: 05/03/18 04:54 05/03/18 04:54 05/02/18 05/03/18 05/03/18 19:46 04:54 04:54 WBC 8.6 RBC 3.20 L Hgb 10.0 L Hct 30.2 L MCV 94 MCH 31.1 MCHC 33.0 RDW 14.7 H Plt Count 157 Seg Neutrophils % Not Reportable Lymphocytes % Not Reportable Monocytes % Not Reportable Eosinophils % Not Reportable Basophils % Not Reportable Absolute Neutrophils Not Reportable Absolute Lymphocytes Not Reportable Absolute Monocytes Not Reportable Absolute Eosinophils Not Reportable Absolute Basophils Not Reportable Carbonic Acid 1.54 H HCO3/H2CO3 Ratio 20:1 ABG pH 7.40 ABG pCO2 51.2 H ABG pO2 103.2 H ABG HCO3 31.3 H ABG O2 Saturation 97.7 ABG Base Excess 5.5 FiO2 30% Sodium Potassium Chloride Carbon Dioxide Anion Gap BUN Creatinine Est GFR ( Amer) Est GFR (Non-Af Amer) Glucose Calcium Magnesium Total Bilirubin AST ALT Alkaline Phosphatase Ammonia Total Protein Cancelled Albumin Cancelled 05/03/18 05/03/18 05/03/18 04:54 04:54 06:10 WBC RBC Hgb Hct MCV MCH MCHC RDW Plt Count Seg Neutrophils % Lymphocytes % Monocytes % Eosinophils % Basophils % Absolute Neutrophils Absolute Lymphocytes Absolute Monocytes Absolute Eosinophils Absolute Basophils Carbonic Acid 1.53 H HCO3/H2CO3 Ratio 20:1 ABG pH 7.41 ABG pCO2 50.8 H ABG pO2 133.6 H ABG HCO3 31.3 H ABG O2 Saturation 98.6 H ABG Base Excess 5.8 FiO2 30% Sodium 150.1 H Potassium 4.8 Chloride 111 H Carbon Dioxide 34 H Anion Gap 5 BUN 43 H Creatinine 1.57 H Est GFR ( Amer) 38 L Est GFR (Non-Af Amer) 31 L Glucose 149 H Calcium 11.1 H Magnesium 2.3 Total Bilirubin 0.6 AST 23 ALT 14 Alkaline Phosphatase 65 Ammonia < 8.7 L Total Protein 6.0 L Albumin 2.8 L 05/03/18 04:54 NT-Pro-B Natriuret Pep 1410 H Impressions: Chest X-Ray 05/02/18 15:39 IMPRESSION: Similar opacity at the right costophrenic angle. Slight increased opacity at the left costophrenic angle, possibly subsegmental atelectasis-small pleural effusion. Head CT 05/02/18 15:39 IMPRESSION: No acute intracranial findings. EVIDENCE OF ACUTE STROKE: NO. Assessment & Plan - Diagnosis (1) Chronic kidney disease Qualifiers: Chronic kidney disease stage: stage 3 (moderate) Qualified Code(s): N18.3 - Chronic kidney disease, stage 3 (moderate) Plan: currently at baseline, normal kidney function is between 1.4 to 1.6. She was last seen in the office in January at 1.6. (2) Hypercalcemia Is this a current diagnosis for this admission?: Yes Plan: looks to be from dehydration and exacerbated from being on a vitamin D supplement. Continue fluids, but switching to 1/2NS due to the elevated sodium, continue to hold D3 supplement. (3) Dehydration Is this a current diagnosis for this admission?: Yes Plan: switching to 1/2NS due to elevated sodium (4) Cerebrovascular disease Is this a current diagnosis for this admission?: Yes Plan: per primary (5) Altered mental state Qualifiers: Altered mental status type: disorientation Qualified Code(s): R41.0 - Disorientation, unspecified Is this a current diagnosis for this admission?: Yes Plan: Patient has underlining dementia, slight elevated PCO2 could be leading to AMS. Other factor could be the recent change in living situations exacerbating the dementia. Other differential includes the current possible UTI. (6) Urinary tract infection Qualifiers: Urinary tract infection type: site unspecified Is this a current diagnosis for this admission?: Yes Plan: awaiting culture results (7) Hypertension Qualifiers: Hypertension type: essential hypertension Qualified Code(s): I10 - Essential (primary) hypertension Plan: mostly controlled
--- NOTE | 2018-05-03 19:51 | PDOC CONSULTATION ---
Consultation Consult Date: 05/03/18 Attending physician:: DIANE ROBLES Consult reason:: Mental status changes, possible CVA History of Present Illness Admission Date/PCP: 05/02/18 19:33 DIANE ROBLES MD Patient complains of: Patient has confusion. 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 Came in over the weekend because of the weakness and a stroke like symptoms. According to the family until Thursday patient was doing good. After Thursday she was not eating or drinking much. The family brought her in because she still was not feeling well. In the ER the patient's labs showed a calcium of 12.2, patients PCO2 was high. Patient initially put on the BiPAP in the ER and PCO2 is came down to the 50. Also looked to have a possible UTI with current urine cultures pending. Upon examination today, the patient was altered. According to Heather, the nurse in charge of her care, this is her baseline. She was not able to provide much of a history to me or answer many questions. Most of the history was retrieved from previous notes and the nurse. Patient has a baseline creatinine between 1.4 and 1.6. This history obtained by the nephrology team was reviewed and confirmed. Patient actually was noted to have no significant cardiac dysrhythmia. Patient also denied any chest pain. She is not noted to be short of breath. Past Medical History Cardiac Medical History: Reports: Hypertension - CONTROLLED Denies: Myocardial Infarction Pulmonary Medical History: Denies: Asthma, Bronchitis, Chronic Obstructive Pulmonary Disease (COPD), Pneumonia Neurological Medical History: Denies: Seizures Endocrine Medical History: Reports: Diabetes Mellitus Type 2 Renal/ Medical History: Reports: Chronic Kidney Disease GI Medical History: Reports: Gastroesophageal Reflux Disease Denies: Hepatitis, Hiatal Hernia Musculoskeltal Medical History: Reports: Arthritis Psychiatric Medical History: Reports: Dementia, Depression Hematology: Denies: Anemia, Sickle Cell Disease Past Surgical History Past Surgical History: Reports: Mastectomy - LUMPECTOMY NO RESTRICTIONS Denies: Amputation, Pacemaker Social History Information Source: Relative Smoking Status: Never Smoker Frequency of Alcohol Use: None Hx Recreational Drug Use: No Drugs: None Hx Prescription Drug Abuse: No - Advance Directive Resuscitation Status: Do Not Resuscitate Family History Family History: Reviewed & Not Pertinent Parental Family History Reviewed: No Children Family History Reviewed: No Sibling(s) Family History Reviewed.: No Medication/Allergy Home Medications: Cholecalciferol (Vitamin D3) [Vitamin D3 2000 unit Capsule] 2,000 unit PO QAM Metoprolol Tartrate [Lopressor 25 mg Tablet] 25 mg PO Q12 04/21/17 [place]-3 Fatty Acids/Fish Oil [Fish Oil 1,000 mg Capsule] 1,000 mg PO QAM Escitalopram Oxalate [Lexapro 10 mg Tablet] 10 mg PO QPM 03/08/18 Linagliptin [Tradjenta] 5 mg PO DAILY 04/20/18 Ranitidine HCl [Zantac 150 mg Tablet] 150 mg PO BIDP PRN 04/20/18 Amlodipine Besylate [Norvasc 2.5 mg Tablet] 2.5 mg PO Q12 #60 tablet 04/23/18 Atorvastatin Calcium [Lipitor 20 mg Tablet] 20 mg PO QHS #30 tablet 04/23/18 Tramadol HCl [Ultram 50 mg Tablet] 50 mg PO Q12HP PRN #60 04/23/18 Aspirin [Ecotrin 325 mg EC Tablet] 325 mg PO QAM 05/03/18 Amoxicillin Trihydrate [Amoxil 500 mg Capsule] 500 mg PO Q8 #21 capsule Ipratropium/Albuterol Sulfate [Duoneb 3 ml Ampul] 3 ml NEB RTQ6HP PRN #100 vial.neb 05/06/18 Allergies/Adverse Reactions: No Known Allergies Allergy (Verified 05/03/18 08:44) Review of Systems ROS unobtainable: Due to mental status Physical Exam Vital Signs: Temp Pulse Resp BP Pulse Ox 97.7 F 77 20 130/50 H 100 05/03/18 16:00 05/03/18 16:00 05/03/18 16:00 05/03/18 16:00 05/03/18 16:00 Intake & Output 05/02/18 05/03/18 05/04/18 06:59 06:59 06:59 Intake Total 338 1099 Output Total 380 200 Balance -42 899 Weight 56.2 kg Exam: GENERAL: well-nourished and in no acute distress. Patient is alert but not oriented to place time or person. HEAD: Atraumatic, normocephalic. EYES: sclera anicteric, conjunctiva are normal. ENT: TMs normal, nares patent, oropharynx clear without exudates. Moist mucous membranes. No oral ulcerations or bleeding gums noted NECK: supple without lymphadenopathy or JVD. Trachea is central. No cervical or axillary lymphadenopathy noted. Carotids are 2+ LUNGS: Breath sounds bibasilar fine crackles at bases. No significant dullness noted. CHEST: Palpation of chest wall shows no significant chest wall tenderness. HEART: Enigma WHITE SOURER, No PSH, 2/6 TESSY aortic area, 1/6 watts systolic murmur mitral area, rubs or gallops. ABDOMEN: Soft, no significant tenderness appreciated, normoactive bowel sounds. No guarding, no rebound. No rigidity noted . No masses appreciated. EXTREMITIES: Pedal pulses are 1-2+, no calf tenderness noted, Trace + pedal edema noted. No clubbing or cyanosis. NEUROLOGICAL: Patient is alert but is not able to participate in neurological exam because of patient's current mental status PSYCH: Patient cannot participate in a neurologic and psych exam because of the patient's current mental status SKIN: No significant ecchymosis, rash, ulcerations or signs of pruritus noted. MUSCULOSKELETAL EXAM: No significant joint swelling noted. Results Laboratory Results: 05/03/18 04:54 05/03/18 04:54 05/02/18 05/03/18 05/03/18 19:46 04:54 04:54 WBC 8.6 RBC 3.20 L Hgb 10.0 L Hct 30.2 L MCV 94 MCH 31.1 MCHC 33.0 RDW 14.7 H Plt Count 157 Seg Neutrophils % Not Reportable Lymphocytes % Not Reportable Monocytes % Not Reportable Eosinophils % Not Reportable Basophils % Not Reportable Absolute Neutrophils Not Reportable Absolute Lymphocytes Not Reportable Absolute Monocytes Not Reportable Absolute Eosinophils Not Reportable Absolute Basophils Not Reportable Carbonic Acid 1.54 H HCO3/H2CO3 Ratio 20:1 ABG pH 7.40 ABG pCO2 51.2 H ABG pO2 103.2 H ABG HCO3 31.3 H ABG O2 Saturation 97.7 ABG Base Excess 5.5 FiO2 30% Sodium Potassium Chloride Carbon Dioxide Anion Gap BUN Creatinine Est GFR ( Amer) Est GFR (Non-Af Amer) Glucose Calcium Magnesium Total Bilirubin AST ALT Alkaline Phosphatase Ammonia Total Protein Cancelled Albumin Cancelled 05/03/18 05/03/18 05/03/18 04:54 04:54 06:10 WBC RBC Hgb Hct MCV MCH MCHC RDW Plt Count Seg Neutrophils % Lymphocytes % Monocytes % Eosinophils % Basophils % Absolute Neutrophils Absolute Lymphocytes Absolute Monocytes Absolute Eosinophils Absolute Basophils Carbonic Acid 1.53 H HCO3/H2CO3 Ratio 20:1 ABG pH 7.41 ABG pCO2 50.8 H ABG pO2 133.6 H ABG HCO3 31.3 H ABG O2 Saturation 98.6 H ABG Base Excess 5.8 FiO2 30% Sodium 150.1 H Potassium 4.8 Chloride 111 H Carbon Dioxide 34 H Anion Gap 5 BUN 43 H Creatinine 1.57 H Est GFR ( Amer) 38 L Est GFR (Non-Af Amer) 31 L Glucose 149 H Calcium 11.1 H Magnesium 2.3 Total Bilirubin 0.6 AST 23 ALT 14 Alkaline Phosphatase 65 Ammonia < 8.7 L Total Protein 6.0 L Albumin 2.8 L 05/03/18 04:54 NT-Pro-B Natriuret Pep 1410 H EKG Comments: Sinus rhythm, LVH some minor ST-T wave changes. Impressions: Chest X-Ray 05/02/18 15:39 IMPRESSION: Similar opacity at the right costophrenic angle. Slight increased opacity at the left costophrenic angle, possibly subsegmental atelectasis-small pleural effusion. Head CT 05/02/18 15:39 IMPRESSION: No acute intracranial findings. EVIDENCE OF ACUTE STROKE: NO. Assessment & Plan - Diagnosis (1) Altered mental state Qualifiers: Altered mental status type: disorientation Qualified Code(s): R41.0 - Disorientation, unspecified Is this a current diagnosis for this admission?: Yes (2) Cerebrovascular disease Is this a current diagnosis for this admission?: Yes (3) Dementia Qualifiers: Dementia type: vascular dementia Dementia behavioral disturbance: with behavioral disturbance Qualified Code(s): F01.51 - Vascular dementia with behavioral disturbance Is this a current diagnosis for this admission?: Yes (4) Hypercalcemia Is this a current diagnosis for this admission?: Yes (5) Chronic kidney disease Qualifiers: Chronic kidney disease stage: stage 3 (moderate) Qualified Code(s): N18.3 - Chronic kidney disease, stage 3 (moderate) (6) Hypertension Qualifiers: Hypertension type: essential hypertension Qualified Code(s): I10 - Essential (primary) hypertension Is this a current diagnosis for this admission?: Yes - Notes Notes: Altered mental status: There are multiple diagnosis that can be considered for mental status changes. Possibly related to medications, dementia, changes in surroundings, other metabolic issues. Cerebrovascular accident: Patient is suspected to have this. At this point, patient previous echocardiogram was reviewed. Recommend continuing monitoring for any cardiac dysrhythmia. Do not feel patient is a candidate for nuclear stress testing at this point. We will continue to follow expectantly. Chronic kidney disease: Continue monitoring renal functions closely. Will avoid hydration and nephrotoxic agents. Essential hypertension: Recommend liberal control. Would not policy change clerk unless blood pressure consistently above 150 mmHg in view of stroke being considered. Hypercalcemia: Exact etiology not clear but currently being evaluated by the physical therapy aide. Recommend to avoid any dehydration. Patient is debilitated and quite elderly therefore prognosis is guarded. Patient's son is the surrogate decision maker. - Time Time Spent: 30 to 50 Minutes - More than 50% of the time spent coordinating care , discussing management plans with involved caregivers. Management plans discussed with involved personnels. Medical decision making was of moderate to high complexity, patient's has multiple comorbidities. CODE STATUS : was discussed, patient remains DO NOT RESUSCITATE. Surrogate decision-maker unchanged. Multiple medical problems were addressed. Medications reviewed and adjusted accordingly: Yes
[2018-05-03] MEDS: METOPROLOL TARTRATE 25 MG TABLET PO SCH (21:58)
[2018-05-03] MEDS: AMLODIPINE BESYLATE 2.5 MG TABLET PO SCH (21:58)
[2018-05-03] MEDS: ATORVASTATIN CALCIUM 20 MG TABLET PO SCH (21:58)
[2018-05-04] MEDS: 1/2 NORMAL SALINE 1,000 ML IV PRN ×2 (03:33→16:26)
[2018-05-04 06:09] LABS: HEMATOCRIT 28.6 % (36.0-47.0); HEMOGLOBIN 9.7 g/dL (12.0-15.5); MEAN CORPUSCULAR HEMOGLOBIN 31.2 pg (27.0-33.4); MEAN CORPUSCULAR HGB CONC 33.9 g/dL (32.0-36.0); MEAN CORPUSCULAR VOLUME 92 fl (80-97); PLATELET COUNT 163 10^3/uL (150-450); RED BLOOD COUNT 3.11 10^6/uL (3.72-5.28); RED CELL DISTRIBUTION WIDTH 14.6 % (11.5-14.0); WHITE BLOOD COUNT 10.3 10^3/uL (4.0-10.5)
[2018-05-04 07:17] LABS: ABSOLUTE LYMPHOCYTES# (MANUAL) 2.5 10^3/uL (0.5-4.7); ABSOLUTE MONOCYTES # (MANUAL) 0.8 10^3/uL (0.1-1.4); ABSOLUTE NEUTROPHILS# (MANUAL) 6.7 10^3/uL (1.7-8.2); BASOPHILS % (MANUAL) 0 % (0-2); EOSINOPHILS % (MANUAL) 3 % (0-6); LYMPHOCYTES % (MANUAL) 24 % (13-45); MONOCYTES % (MANUAL) 8 % (3-13); SEGMENTED NEUTROPHILS % (MAN) 65 % (42-78); TOTAL CELLS COUNTED 100
[2018-05-04 07:20] LABS: ANISOCYTOSIS SLIGHT; POLYCHROMASIA SLIGHT; TOXIC GRANULATION 2+
[2018-05-04 07:21] LABS: OVALOCYTES 1+; PLATELET COMMENT ADEQUATE
[2018-05-04] MEDS ORDERED: CHOLECALCIFEROL PO SCH (08:00)
[2018-05-04] MEDS ORDERED: [UNRECOGNIZED DRUG - OTHER] PO SCH (08:00)
[2018-05-04 08:26] LABS: ARTERIAL BLOOD BASE EXCESS 6.1 mmol/L; ARTERIAL BLOOD H2CO3 1.23 mmol/L (1.05-1.35); ARTERIAL BLOOD O2 SATURATION 99.2 % (94-98); ARTERIAL BLOOD PCO2 40.7 mmHg (35-45); ARTERIAL BLOOD PH 7.49 (7.35-7.45); ARTERIAL BLOOD TOTAL CO2 31.3 mmol/L (21-25)
[2018-05-04 08:50] LABS: ARTERIAL BLOOD FIO2 2L
[2018-05-04] MEDS: CHOLECALCIFEROL (D3) 1,000 UNIT TABLET PO SCH (08:52)
[2018-05-04] MEDS: ASPIRIN 325 MG TABLET, ENT COATED PO SCH (08:52)
[2018-05-04] MEDS: METOPROLOL TARTRATE 25 MG TABLET PO SCH ×2 (09:18→21:27)
[2018-05-04] MEDS: FUROSEMIDE INJ/PF 20 MG/2 ML SDV IV SCH (09:19)
[2018-05-04] MEDS: SITAGLIPTIN PHOSPHATE 25 MG TABLET PO SCH (09:19)
[2018-05-04] MEDS: AMLODIPINE BESYLATE 2.5 MG TABLET PO SCH ×2 (09:19→21:27)
[2018-05-04] MEDS: FAMOTIDINE 20 MG TABLET PO SCH (09:19)
[2018-05-04] MEDS: ENOXAPARIN SODIUM INJ 30 MG/0.3 ML DISP.SYRIN SUBCUT SCH (09:20)
[2018-05-04] MEDS: DOCUSATE SODIUM 100 MG/10 ML UDC PO SCH ×2 (09:52→17:30)
[2018-05-04] MEDS ORDERED: (PENDING PHARMACY ID) (Linagliptin [Tradjenta] 5 MG) PO SCH (10:00)
[2018-05-04 10:58] LABS: ANION GAP 10 (5-19); BLOOD UREA NITROGEN 32 mg/dL (7-20); CALCIUM 10.2 mg/dL (8.4-10.2); CARBON DIOXIDE 29 mmol/L (22-30); CHLORIDE 107 mmol/L (98-107); GLUCOSE 115 mg/dL (75-110); POTASSIUM 3.9 mmol/L (3.6-5.0); SODIUM 146.1 mmol/L (137-145)
--- NOTE | 2018-05-04 11:04 | PDOC PROGRESS REPORT ---
Subjective Progress Note for:: 05/04/18 Subjective:: Since is currently doing same No chest pain no short of breath Patient seen by the nephrology and cardiology Reason For Visit: HYPERCALCIUMIA,AMS,UTI,RENAL FAILURE Physical Exam Vital Signs: Temp Pulse Resp BP Pulse Ox 98.3 F 84 18 146/60 H 99 05/04/18 08:00 05/04/18 08:10 05/04/18 08:10 05/04/18 08:00 05/04/18 08:10 Intake & Output 05/03/18 05/04/18 05/05/18 06:59 06:59 06:59 Intake Total 338 2149 Output Total 380 800 Balance -42 1349 Weight 56.2 kg 58.2 kg General appearance: PRESENT: no acute distress, well-developed, well-nourished Head exam: PRESENT: atraumatic, normocephalic Eye exam: PRESENT: conjunctiva pink, EOMI, PERRLA. ABSENT: scleral icterus Ear exam: PRESENT: normal external ear exam Mouth exam: PRESENT: moist, tongue midline Neck exam: PRESENT: full ROM. ABSENT: carotid bruit, JVD, lymphadenopathy, thyromegaly Respiratory exam: PRESENT: clear to auscultation darryl Cardiovascular exam: PRESENT: RRR. ABSENT: diastolic murmur, rubs, systolic murmur Pulses: PRESENT: normal dorsalis pedis pul, +2 pedal pulses bilateral Vascular exam: PRESENT: normal capillary refill GI/Abdominal exam: PRESENT: normal bowel sounds, soft. ABSENT: distended, guarding, mass, organolmegaly, rebound, tenderness Rectal exam: PRESENT: deferred Extremities exam: ABSENT: pedal edema Neurological exam: PRESENT: alert, altered, awake. ABSENT: motor sensory deficit Psychiatric exam: PRESENT: appropriate affect, normal mood. ABSENT: homicidal ideation, suicidal ideation Skin exam: PRESENT: dry, intact, warm. ABSENT: cyanosis, rash Results Laboratory Results: 05/04/18 05:56 05/04/18 05/04/18 05/04/18 05:56 05:56 05:56 WBC 10.3 RBC 3.11 L Hgb 9.7 L Hct 28.6 L MCV 92 MCH 31.2 MCHC 33.9 RDW 14.6 H Plt Count 163 Seg Neutrophils % Not Reportable Lymphocytes % Not Reportable Monocytes % Not Reportable Eosinophils % Not Reportable Basophils % Not Reportable Absolute Neutrophils Not Reportable Absolute Lymphocytes Not Reportable Absolute Monocytes Not Reportable Absolute Eosinophils Not Reportable Absolute Basophils Not Reportable Carbonic Acid HCO3/H2CO3 Ratio ABG pH ABG pCO2 ABG pO2 ABG HCO3 ABG O2 Saturation ABG Base Excess FiO2 Magnesium 1.9 PTH Intact 22.9 05/04/18 08:10 WBC RBC Hgb Hct MCV MCH MCHC RDW Plt Count Seg Neutrophils % Lymphocytes % Monocytes % Eosinophils % Basophils % Absolute Neutrophils Absolute Lymphocytes Absolute Monocytes Absolute Eosinophils Absolute Basophils Carbonic Acid 1.23 HCO3/H2CO3 Ratio 24:1 ABG pH 7.49 H ABG pCO2 40.7 ABG pO2 164.0 H ABG HCO3 30.0 H ABG O2 Saturation 99.2 H ABG Base Excess 6.1 FiO2 2L Magnesium PTH Intact 05/03/18 04:54 NT-Pro-B Natriuret Pep 1410 H Impressions: Chest X-Ray 05/02/18 15:39 IMPRESSION: Similar opacity at the right costophrenic angle. Slight increased opacity at the left costophrenic angle, possibly subsegmental atelectasis-small pleural effusion. Head CT 05/02/18 15:39 IMPRESSION: No acute intracranial findings. EVIDENCE OF ACUTE STROKE: NO. Assessment & Plan - Diagnosis (1) Altered mental state Qualifiers: Altered mental status type: disorientation Qualified Code(s): R41.0 - Disorientation, unspecified Is this a current diagnosis for this admission?: Yes Plan: Multifactorial due to the UTI and hypercalcemia and metabolic (2) Hypercalcemia Is this a current diagnosis for this admission?: Yes Plan: Currently all improving continues to IV fluid (3) Acute renal failure Qualifiers: Acute renal failure type: unspecified Qualified Code(s): N17.9 - Acute kidney failure, unspecified Is this a current diagnosis for this admission?: Yes Plan: Will continues to IV fluid (4) Hypercapnic respiratory failure Qualifiers: Chronicity: acute on chronic Qualified Code(s): J96.22 - Acute and chronic respiratory failure with hypercapnia Is this a current diagnosis for this admission?: Yes Plan: Put the patient on a BiPAP (5) Cerebrovascular disease Is this a current diagnosis for this admission?: Yes Plan: Continues to aspirin and a statin (6) Dehydration Is this a current diagnosis for this admission?: Yes Plan: Continues to IV fluid (7) Osteoarthritis Qualifiers: Osteoarthritis location: unspecified site Is this a current diagnosis for this admission?: Yes (8) Dementia Qualifiers: Dementia type: vascular dementia Dementia behavioral disturbance: with behavioral disturbance Qualified Code(s): F01.51 - Vascular dementia with behavioral disturbance Is this a current diagnosis for this admission?: Yes Plan: Patient unable to tolerateAny dementia medication (9) Urinary tract infection Qualifiers: Urinary tract infection type: site unspecified Is this a current diagnosis for this admission?: Yes Plan: Continues to IV antibiotic (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 Is this a current diagnosis for this admission?: Yes (11) Elevated troponin Is this a current diagnosis for this admission?: Yes - Time Time Spent with patient: 15-24 minutes Medications reviewed and adjusted accordingly: Yes Anticipated discharge: SNF Within: Other - Inpatient Certification Based on my medical assessment, after consideration of the patient's comorbidities, presenting symptoms, or acuity I expect that the services needed warrant INPATIENT care.: Yes I certify that my determination is in accordance with my understanding of Medicare's requirements for reasonable and necessary INPATIENT services [42 CFR 412.3e].: Yes Medical Necessity: Significant Comorbidiites Make Outpatient Treatment Too Risky Post Hospital Care: D/C Flanging Operator Documentation - Plan Summary Plan Summary: Continues current medication
[2018-05-04] MEDS: AMOXICILLIN TRIHYDRATE 500 MG CAPSULE PO SCH ×2 (13:17→21:26)
--- NOTE | 2018-05-04 15:11 | PDOC PROGRESS REPORT ---
Subjective Progress Note for:: 05/04/18 Subjective:: Patient was seen laying in her bed today. At the time she was crying and not able to answer any questions. According to the nurse in charge of her care, she had been on and off crying all day. She does not have good PO intake. Reason For Visit: HYPERCALCIUMIA,AMS,UTI,RENAL FAILURE Physical Exam Vital Signs: Temp Pulse Resp BP Pulse Ox 98.1 F 87 20 139/44 H 100 05/04/18 12:00 05/04/18 12:00 05/04/18 12:00 05/04/18 12:00 05/04/18 12:00 Intake & Output 05/03/18 05/04/18 05/05/18 06:59 06:59 06:59 Intake Total 338 2149 Output Total 380 800 Balance -42 1349 Weight 56.2 kg 58.2 kg General appearance: PRESENT: no acute distress, well-developed, well-nourished Mouth exam: PRESENT: moist, neck supple. ABSENT: dry mucosa Neck exam: PRESENT: full ROM. ABSENT: JVD Respiratory exam: PRESENT: clear to auscultation darryl. ABSENT: crackles, rales, rhonchi, wheezes Cardiovascular exam: PRESENT: RRR, +S1, +S2 GI/Abdominal exam: PRESENT: soft. ABSENT: tenderness Extremities exam: ABSENT: pedal edema, tenderness, +1 edema, +2 edema Musculoskeletal exam: PRESENT: normal inspection. ABSENT: tenderness Neurological exam: PRESENT: altered, awake, oriented to place. ABSENT: alert, oriented to person, oriented to time, oriented to situation Psychiatric exam: PRESENT: unusual affect. ABSENT: appropriate affect, normal mood - -crrying when seen, no apparent reason Skin exam: PRESENT: dry, intact, warm Results Laboratory Results: 05/04/18 05:56 05/04/18 05:56 05/04/18 05/04/18 05/04/18 05:56 05:56 05:56 WBC 10.3 RBC 3.11 L Hgb 9.7 L Hct 28.6 L MCV 92 MCH 31.2 MCHC 33.9 RDW 14.6 H Plt Count 163 Seg Neutrophils % Not Reportable Lymphocytes % Not Reportable Monocytes % Not Reportable Eosinophils % Not Reportable Basophils % Not Reportable Absolute Neutrophils Not Reportable Absolute Lymphocytes Not Reportable Absolute Monocytes Not Reportable Absolute Eosinophils Not Reportable Absolute Basophils Not Reportable Carbonic Acid HCO3/H2CO3 Ratio ABG pH ABG pCO2 ABG pO2 ABG HCO3 ABG O2 Saturation ABG Base Excess FiO2 Sodium Potassium Chloride Carbon Dioxide Anion Gap BUN Creatinine Est GFR ( Amer) Est GFR (Non-Af Amer) Glucose Calcium Magnesium 1.9 PTH Intact 22.9 05/04/18 05/04/18 05:56 08:10 WBC RBC Hgb Hct MCV MCH MCHC RDW Plt Count Seg Neutrophils % Lymphocytes % Monocytes % Eosinophils % Basophils % Absolute Neutrophils Absolute Lymphocytes Absolute Monocytes Absolute Eosinophils Absolute Basophils Carbonic Acid 1.23 HCO3/H2CO3 Ratio 24:1 ABG pH 7.49 H ABG pCO2 40.7 ABG pO2 164.0 H ABG HCO3 30.0 H ABG O2 Saturation 99.2 H ABG Base Excess 6.1 FiO2 2L Sodium 146.1 H Potassium 3.9 Chloride 107 Carbon Dioxide 29 Anion Gap 10 BUN 32 H Creatinine 1.44 H Est GFR ( Amer) 42 L Est GFR (Non-Af Amer) 35 L Glucose 115 H Calcium 10.2 Magnesium PTH Intact 05/03/18 04:54 NT-Pro-B Natriuret Pep 1410 H Impressions: Chest X-Ray 05/02/18 15:39 IMPRESSION: Similar opacity at the right costophrenic angle. Slight increased opacity at the left costophrenic angle, possibly subsegmental atelectasis-small pleural effusion. Head CT 05/02/18 15:39 IMPRESSION: No acute intracranial findings. EVIDENCE OF ACUTE STROKE: NO. Assessment & Plan - Diagnosis (1) Chronic kidney disease Qualifiers: Chronic kidney disease stage: stage 3 (moderate) Qualified Code(s): N18.3 - Chronic kidney disease, stage 3 (moderate) Plan: at baseline, at this time she stable for discharge from a lab standpoint. The concern is that she will not stay hydrated from poor PO intake. (2) Hypercalcemia Is this a current diagnosis for this admission?: Yes Plan: stable, with in normal ranges, continue fluids to improve it more. (3) Dehydration Is this a current diagnosis for this admission?: Yes Plan: continue fluids, concern that with poor PO intake she will be right back to the hospital for dehydration (4) Cerebrovascular disease Is this a current diagnosis for this admission?: Yes Plan: per primary (5) Altered mental state Qualifiers: Altered mental status type: disorientation Qualified Code(s): R41.0 - Disorientation, unspecified Is this a current diagnosis for this admission?: Yes Plan: combination, per primay (6) Urinary tract infection Qualifiers: Urinary tract infection type: site unspecified Is this a current diagnosis for this admission?: Yes Plan: recently switched to amoxicillin. (7) Hypertension Qualifiers: Hypertension type: essential hypertension Qualified Code(s): I10 - Essential (primary) hypertension Is this a current diagnosis for this admission?: Yes (8) Hypernatremia Plan: currently coming down after switching to 1/2NS
[2018-05-04 16:39] LABS: ALBUMIN UR 28.6 % (.); ALPHA-1-GLOBULIN URINE 7.4 % (.); ALPHA-2-GLOBULIN URINE 18.1 % (.); GAMMA GLOBULIN URINE 18.7 % (.); M-SPIKE % UR Not Observed % (Not Observ); PROTEIN TOTAL URINE 19.4 mg/dL (Not Estab.)
[2018-05-04] MEDS: ESCITALOPRAM OXALATE 10 MG TABLET PO SCH (17:31)
[2018-05-04 17:37] LABS: A/G RATIO. 0.8 (0.7-1.7); ALBUMIN 3 2.5 g/dL (2.9-4.4); ALPHA-1-GLOBULIN 0.3 g/dL (0.0-0.4); GAMMA GLOBULINS 1.3 g/dL (0.4-1.8); IMMUNOGLOBULIN A 244 mg/dL (64-422); IMMUNOGLOBULIN G 1156 mg/dL (700-1600); IMMUNOGLOBULIN M 148 mg/dL (26-217); MONOCLONAL-SPIKE 0.2 g/dL (Not Observ)
[2018-05-04] MEDS: ATORVASTATIN CALCIUM 20 MG TABLET PO SCH (21:27)
[2018-05-05 04:36] LABS: HEMATOCRIT 27.1 % (36.0-47.0); HEMOGLOBIN 9.2 g/dL (12.0-15.5); MEAN CORPUSCULAR HEMOGLOBIN 31.2 pg (27.0-33.4); MEAN CORPUSCULAR VOLUME 92 fl (80-97); PLATELET COUNT 172 10^3/uL (150-450); RED BLOOD COUNT 2.95 10^6/uL (3.72-5.28); RED CELL DISTRIBUTION WIDTH 14.6 % (11.5-14.0); WHITE BLOOD COUNT 8.8 10^3/uL (4.0-10.5)
[2018-05-05 04:46] LABS: ANION GAP 10 (5-19); BLOOD UREA NITROGEN 25 mg/dL (7-20); CALCIUM 9.3 mg/dL (8.4-10.2); CARBON DIOXIDE 32 mmol/L (22-30); CHLORIDE 102 mmol/L (98-107); GLUCOSE 90 mg/dL (75-110); POTASSIUM 3.4 mmol/L (3.6-5.0); SODIUM 143.8 mmol/L (137-145)
[2018-05-05 04:57] LABS: ABSOLUTE LYMPHOCYTES# (MANUAL) 2.3 10^3/uL (0.5-4.7); ABSOLUTE MONOCYTES # (MANUAL) 0.8 10^3/uL (0.1-1.4); ABSOLUTE NEUTROPHILS# (MANUAL) 5.7 10^3/uL (1.7-8.2); BAND NEUTROPHILS % (MANUAL) 1 % (3-5); BASOPHILS % (MANUAL) 0 % (0-2); EOSINOPHILS % (MANUAL) 0 % (0-6); LYMPHOCYTES % (MANUAL) 25 % (13-45); MONOCYTES % (MANUAL) 9 % (3-13); SEGMENTED NEUTROPHILS % (MAN) 64 % (42-78); TOTAL CELLS COUNTED 100
[2018-05-05 04:58] LABS: ANISOCYTOSIS SLIGHT; PLATELET COMMENT ADEQUATE; POLYCHROMASIA SLIGHT; SCHISTOCYTES SLIGHT; TOXIC GRANULATION 1+
[2018-05-05] MEDS: AMOXICILLIN TRIHYDRATE 500 MG CAPSULE PO SCH ×3 (06:14→22:14)
[2018-05-05] MEDS: 1/2 NORMAL SALINE 1,000 ML IV PRN (06:44)
[2018-05-05] MEDS ORDERED: POTASSI CL 20 MEQ/50 ML RIDER 20 MEQ/50 ML RTUPB IV ONE (08:30)
[2018-05-05] MEDS: ASPIRIN 325 MG TABLET, ENT COATED PO SCH (09:21)
[2018-05-05] MEDS: CHOLECALCIFEROL (D3) 1,000 UNIT TABLET PO SCH (09:21)
[2018-05-05] MEDS: SITAGLIPTIN PHOSPHATE 25 MG TABLET PO SCH (09:21)
[2018-05-05] MEDS: AMLODIPINE BESYLATE 2.5 MG TABLET PO SCH ×2 (09:22→22:14)
[2018-05-05] MEDS: METOPROLOL TARTRATE 25 MG TABLET PO SCH ×2 (09:22→22:14)
[2018-05-05] MEDS: FAMOTIDINE 20 MG TABLET PO SCH (09:22)
[2018-05-05] MEDS: FUROSEMIDE INJ/PF 20 MG/2 ML SDV IV SCH (09:23)
[2018-05-05] MEDS: ENOXAPARIN SODIUM INJ 30 MG/0.3 ML DISP.SYRIN SUBCUT SCH (09:23)
[2018-05-05] MEDS: DOCUSATE SODIUM 100 MG/10 ML UDC PO SCH ×2 (09:23→18:12)
--- NOTE | 2018-05-05 09:46 | PDOC PROGRESS REPORT ---
Subjective Progress Note for:: 05/05/18 Subjective:: Patient is currently doing same Patient still very p.o. intake is very poor Reason For Visit: HYPERCALCIUMIA,AMS,UTI,RENAL FAILURE Physical Exam Vital Signs: Temp Pulse Resp BP Pulse Ox 97.4 F 56 L 16 140/60 H 99 05/05/18 08:11 05/05/18 08:56 05/05/18 08:56 05/05/18 08:11 05/05/18 08:56 Intake & Output 05/04/18 05/05/18 05/06/18 06:59 06:59 06:59 Intake Total 2149 2302 Output Total 800 1650 Balance 1349 652 Weight 58.2 kg 56.1 kg General appearance: PRESENT: no acute distress Head exam: PRESENT: atraumatic, normocephalic Eye exam: PRESENT: conjunctiva pink, EOMI, PERRLA. ABSENT: scleral icterus Ear exam: PRESENT: normal external ear exam Mouth exam: PRESENT: moist, tongue midline Neck exam: PRESENT: full ROM. ABSENT: carotid bruit, JVD, lymphadenopathy, thyromegaly Respiratory exam: PRESENT: clear to auscultation darryl Cardiovascular exam: PRESENT: RRR. ABSENT: diastolic murmur, rubs, systolic murmur Pulses: PRESENT: normal dorsalis pedis pul, +2 pedal pulses bilateral Vascular exam: PRESENT: normal capillary refill GI/Abdominal exam: PRESENT: normal bowel sounds, soft. ABSENT: distended, guarding, mass, organolmegaly, rebound, tenderness Rectal exam: PRESENT: deferred Extremities exam: ABSENT: pedal edema Neurological exam: PRESENT: alert, altered, awake. ABSENT: motor sensory deficit Psychiatric exam: PRESENT: appropriate affect, normal mood. ABSENT: homicidal ideation, suicidal ideation Skin exam: PRESENT: dry, intact, warm. ABSENT: cyanosis, rash Results Laboratory Results: 05/05/18 04:12 05/05/18 04:12 05/03/18 05/04/18 05/05/18 04:54 05:56 04:12 WBC 8.8 RBC 2.95 L Hgb 9.2 L Hct 27.1 L MCV 92 MCH 31.2 MCHC 34.0 RDW 14.6 H Plt Count 172 Seg Neutrophils % Not Reportable Lymphocytes % Not Reportable Monocytes % Not Reportable Eosinophils % Not Reportable Basophils % Not Reportable Absolute Neutrophils Not Reportable Absolute Lymphocytes Not Reportable Absolute Monocytes Not Reportable Absolute Eosinophils Not Reportable Absolute Basophils Not Reportable Sodium 146.1 H Potassium 3.9 Chloride 107 Carbon Dioxide 29 Anion Gap 10 BUN 32 H Creatinine 1.44 H Est GFR ( Amer) 42 L Est GFR (Non-Af Amer) 35 L Glucose 115 H Calcium 10.2 Magnesium Total Protein 6.0 Albumin 2.5 L 05/05/18 04:12 WBC RBC Hgb Hct MCV MCH MCHC RDW Plt Count Seg Neutrophils % Lymphocytes % Monocytes % Eosinophils % Basophils % Absolute Neutrophils Absolute Lymphocytes Absolute Monocytes Absolute Eosinophils Absolute Basophils Sodium 143.8 Potassium 3.4 L Chloride 102 Carbon Dioxide 32 H Anion Gap 10 BUN 25 H Creatinine 1.33 H Est GFR ( Amer) 46 L Est GFR (Non-Af Amer) 38 L Glucose 90 Calcium 9.3 Magnesium 1.8 Total Protein Albumin 05/03/18 04:54 NT-Pro-B Natriuret Pep 1410 H Impressions: Chest X-Ray 05/02/18 15:39 IMPRESSION: Similar opacity at the right costophrenic angle. Slight increased opacity at the left costophrenic angle, possibly subsegmental atelectasis-small pleural effusion. Head CT 05/02/18 15:39 IMPRESSION: No acute intracranial findings. EVIDENCE OF ACUTE STROKE: NO. Assessment & Plan - Diagnosis (1) Altered mental state Qualifiers: Altered mental status type: disorientation Qualified Code(s): R41.0 - Disorientation, unspecified Is this a current diagnosis for this admission?: Yes Plan: Multifactorial due to the UTI and hypercalcemia and metabolic (2) Hypercalcemia Is this a current diagnosis for this admission?: Yes Plan: Currently all improving continues to IV fluid (3) Acute renal failure Qualifiers: Acute renal failure type: unspecified Qualified Code(s): N17.9 - Acute kidney failure, unspecified Is this a current diagnosis for this admission?: Yes Plan: Will continues to IV fluid (4) Hypercapnic respiratory failure Qualifiers: Chronicity: acute on chronic Qualified Code(s): J96.22 - Acute and chronic respiratory failure with hypercapnia Is this a current diagnosis for this admission?: Yes Plan: Put the patient on a BiPAP (5) Cerebrovascular disease Is this a current diagnosis for this admission?: Yes Plan: Continues to aspirin and a statin (6) Dehydration Is this a current diagnosis for this admission?: Yes Plan: Continues to IV fluid (7) Osteoarthritis Qualifiers: Osteoarthritis location: unspecified site Is this a current diagnosis for this admission?: Yes (8) Dementia Qualifiers: Dementia type: vascular dementia Dementia behavioral disturbance: with behavioral disturbance Qualified Code(s): F01.51 - Vascular dementia with behavioral disturbance Is this a current diagnosis for this admission?: Yes Plan: Patient unable to tolerateAny dementia medication (9) Urinary tract infection Qualifiers: Urinary tract infection type: site unspecified Is this a current diagnosis for this admission?: Yes Plan: Continues to IV antibiotic (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 Is this a current diagnosis for this admission?: Yes (11) Elevated troponin Is this a current diagnosis for this admission?: Yes - Time Time Spent with patient: 15-24 minutes Medications reviewed and adjusted accordingly: Yes Anticipated discharge: SNF Within: Other - Inpatient Certification Based on my medical assessment, after consideration of the patient's comorbidities, presenting symptoms, or acuity I expect that the services needed warrant INPATIENT care.: Yes I certify that my determination is in accordance with my understanding of Medicare's requirements for reasonable and necessary INPATIENT services [42 CFR 412.3e].: Yes Medical Necessity: Need Close Monitoring Due to Risk of Patient Decompensation 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 intake is very poor we add the Glucerna but I think patient's overall prognosis is very poor because of the very poor p.o. intake patients repeatedly complained of the dehydration's renal failure I think probably appropriate for the possible hospice
[2018-05-05] MEDS: ACETAMINOPHEN 325 MG TABLET PO PRN (15:11)
[2018-05-05] MEDS: ESCITALOPRAM OXALATE 10 MG TABLET PO SCH (18:22)
[2018-05-05] MEDS: TRAMADOL HCL 50 MG TABLET PO PRN (18:41)
--- NOTE | 2018-05-05 20:07 | PDOC PROGRESS REPORT ---
Subjective Progress Note for:: 05/05/18 Subjective:: Patient doing generally better physically but still has intermittent underlying confusion. Patient's son at bedside. History reviewed. 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 Temporal arteritis was suspected and in fact underwent a temporal artery biopsy. This am told by the son that was negative for temporal arteritis but nevertheless patient was continued on high-dose steroids. It seems it did help optic neuritis, optic nerve swelling. However subsequently patient became quite debilitated and confused. Patient just needed to be admitted. Patient has had no chest pain. No significant shortness of breath noted. Patient has been very weak, tired and confused.. Reason For Visit: HYPERCALCIUMIA,AMS,UTI,RENAL FAILURE Physical Exam Vital Signs: Temp Pulse Resp BP Pulse Ox 97.5 F 77 16 111/51 L 100 05/05/18 16:21 05/05/18 16:21 05/05/18 16:21 05/05/18 16:21 05/05/18 16:21 Intake & Output 05/04/18 05/05/18 05/06/18 06:59 06:59 06:59 Intake Total 2149 2302 908 Output Total 800 1650 700 Balance 1349 652 208 Weight 58.2 kg 56.1 kg Exam: GENERAL: well-nourished and in no acute distress. Patient is alert but not oriented to place time or person. HEAD: Atraumatic, normocephalic. EYES: Pupils equal round and reactive to light, extraocular movements intact, sclera anicteric, conjunctiva are normal. Patient noted to have blindness right eye. ENT: TMs normal, nares patent, oropharynx clear without exudates. Moist mucous membranes. No oral ulcerations or bleeding gums noted NECK: supple without lymphadenopathy or JVD. Trachea is central. No cervical or axillary lymphadenopathy noted. Carotids are 2+ LUNGS: Breath sounds bibasilar fine crackles at bases. No significant dullness noted. CHEST: Palpation of chest wall shows no significant chest wall tenderness. 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 ABDOMEN: Soft, no significant tenderness appreciated, normoactive bowel sounds. No guarding, no rebound. No rigidity noted . No masses appreciated. EXTREMITIES: Pedal pulses are 1-2+, no calf tenderness noted, Trace + pedal edema noted. No clubbing or cyanosis. NEUROLOGICAL: Patient is alert but is not able to participate in neurological exam because of patient's current mental status PSYCH: Patient cannot participate in a neurologic and psych exam because of the patient's current mental status SKIN: No significant ecchymosis, rash, ulcerations or signs of pruritus noted. MUSCULOSKELETAL EXAM: No significant joint swelling noted. Results Laboratory Results: 05/05/18 04:12 05/05/18 04:12 05/03/18 05/05/18 05/05/18 04:54 04:12 04:12 WBC 8.8 RBC 2.95 L Hgb 9.2 L Hct 27.1 L MCV 92 MCH 31.2 MCHC 34.0 RDW 14.6 H Plt Count 172 Seg Neutrophils % Not Reportable Lymphocytes % Not Reportable Monocytes % Not Reportable Eosinophils % Not Reportable Basophils % Not Reportable Absolute Neutrophils Not Reportable Absolute Lymphocytes Not Reportable Absolute Monocytes Not Reportable Absolute Eosinophils Not Reportable Absolute Basophils Not Reportable Sodium 143.8 Potassium 3.4 L Chloride 102 Carbon Dioxide 32 H Anion Gap 10 BUN 25 H Creatinine 1.33 H Est GFR ( Amer) 46 L Est GFR (Non-Af Amer) 38 L Glucose 90 Calcium 9.3 Magnesium 1.8 Total Protein 6.0 Albumin 2.5 L 05/03/18 04:54 NT-Pro-B Natriuret Pep 1410 H EKG Comments: 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 Prior EKGs were reviewed. Impressions: Chest X-Ray 05/02/18 15:39 IMPRESSION: Similar opacity at the right costophrenic angle. Slight increased opacity at the left costophrenic angle, possibly subsegmental atelectasis-small pleural effusion. Head CT 05/02/18 15:39 IMPRESSION: No acute intracranial findings. EVIDENCE OF ACUTE STROKE: NO. Assessment & Plan - Diagnosis (1) Altered mental state Qualifiers: Altered mental status type: disorientation Qualified Code(s): R41.0 - Disorientation, unspecified Is this a current diagnosis for this admission?: Yes (2) Cerebrovascular disease Is this a current diagnosis for this admission?: Yes (3) Dementia Qualifiers: Dementia type: vascular dementia Dementia behavioral disturbance: with behavioral disturbance Qualified Code(s): F01.51 - Vascular dementia with behavioral disturbance Is this a current diagnosis for this admission?: Yes (4) Hypercalcemia Is this a current diagnosis for this admission?: Yes (5) Chronic kidney disease Qualifiers: Chronic kidney disease stage: stage 3 (moderate) Qualified Code(s): N18.3 - Chronic kidney disease, stage 3 (moderate) (6) Hypertension Qualifiers: Hypertension type: essential hypertension Qualified Code(s): I10 - Essential (primary) hypertension Is this a current diagnosis for this admission?: Yes - Notes Notes: Patient noted to be stable from cardiac standpoint. Currently not on lunchroom monitor. Discussed with son that at this point not much to offer as regards acute cardiac care. Patient can be seen as an outpatient. Have therefore signed off. Please reconsult if needed. - Time Time with patient: 15-25 minutes Medications reviewed and adjusted accordingly: Yes
[2018-05-05] MEDS: ATORVASTATIN CALCIUM 20 MG TABLET PO SCH (22:14)
[2018-05-06] MEDS: ACETAMINOPHEN 325 MG TABLET PO PRN ×3 (01:27→19:33)
[2018-05-06] MEDS: 1/2 NORMAL SALINE 1,000 ML IV PRN (02:41)
[2018-05-06 05:56] LABS: ANION GAP 9 (5-19); BLOOD UREA NITROGEN 30 mg/dL (7-20); CALCIUM 10.7 mg/dL (8.4-10.2); CARBON DIOXIDE 29 mmol/L (22-30); CHLORIDE 102 mmol/L (98-107); GLUCOSE 164 mg/dL (75-110); POTASSIUM 3.8 mmol/L (3.6-5.0); SODIUM 140.1 mmol/L (137-145)
[2018-05-06] MEDS: AMOXICILLIN TRIHYDRATE 500 MG CAPSULE PO SCH ×3 (06:00→22:24)
[2018-05-06] MEDS: CHOLECALCIFEROL (D3) 1,000 UNIT TABLET PO SCH (08:14)
[2018-05-06] MEDS: ASPIRIN 325 MG TABLET, ENT COATED PO SCH (08:14)
--- NOTE | 2018-05-06 08:40 | PDOC TRANSFER SUMMARY ---
General - Admit/Disc Date/PCP Admission Date/Primary Care Provider: 05/02/18 19:33 DIANE ROBLES MD Discharge Date: 05/06/18 - Discharge Diagnosis (1) Altered mental state Is this a current diagnosis for this admission?: Yes Summary: Currently all stable (2) Hypercalcemia Is this a current diagnosis for this admission?: Yes Summary: Due to the dehydration's currently all resolved (3) Acute renal failure Is this a current diagnosis for this admission?: Yes Summary: Currently all stable (4) Hypercapnic respiratory failure Is this a current diagnosis for this admission?: Yes Summary: Currently all resolved (5) Cerebrovascular disease Is this a current diagnosis for this admission?: Yes Summary: Tenderness to aspirin and statin (6) Dehydration Is this a current diagnosis for this admission?: Yes Summary: Due to the significant worsening dementia and failure to thrive (7) Osteoarthritis Is this a current diagnosis for this admission?: Yes (8) Dementia Is this a current diagnosis for this admission?: Yes Summary: Patients try all dementia medicine past unable to tolerate recently worsening (9) Urinary tract infection Is this a current diagnosis for this admission?: Yes Summary: Continues to add amoxicillin (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 Is this a current diagnosis for this admission?: Yes (11) Elevated troponin Is this a current diagnosis for this admission?: Yes (12) Failure to thrive Is this a current diagnosis for this admission?: Yes Summary: Due to the recent worsening the dementia patients not able to eat or drink much discussed with the family about the all options and suggest no PEG tube pretty much at this point the hospice care - Additional Information Resuscitation Status: Do Not Resuscitate Discharge Diet: As Tolerated Discharge Activity: Activity As Tolerated Prescriptions: Amoxicillin Trihydrate [Amoxil 500 mg Capsule] 500 mg PO Q8 #21 capsule Ipratropium/Albuterol Sulfate [Duoneb 3 ml Ampul] 3 ml NEB RTQ6HP PRN #100 [email or web address] PRN Reason: Home Medications: Cholecalciferol (Vitamin D3) [Vitamin D3 2000 unit Capsule] 2,000 unit PO QAM Metoprolol Tartrate [Lopressor 25 mg Tablet] 25 mg PO Q12 04/21/17 [place]-3 Fatty Acids/Fish Oil [Fish Oil 1,000 mg Capsule] 1,000 mg PO QAM 10/24/ 17 Escitalopram Oxalate [Lexapro 10 mg Tablet] 10 mg PO QPM 03/08/18 Linagliptin [Tradjenta] 5 mg PO DAILY 04/20/18 Ranitidine HCl [Zantac 150 mg Tablet] 150 mg PO BIDP PRN 04/20/18 Amlodipine Besylate [Norvasc 2.5 mg Tablet] 2.5 mg PO Q12 #60 tablet 04/23/18 Atorvastatin Calcium [Lipitor 20 mg Tablet] 20 mg PO QHS #30 tablet 04/23/18 Tramadol HCl [Ultram 50 mg Tablet] 50 mg PO Q12HP PRN #60 04/23/18 Aspirin [Ecotrin 325 mg EC Tablet] 325 mg PO QAM 05/03/18 Amoxicillin Trihydrate [Amoxil 500 mg Capsule] 500 mg PO Q8 #21 capsule Ipratropium/Albuterol Sulfate [Duoneb 3 ml Ampul] 3 ml NEB RTQ6HP PRN #100 [email or web address] 05/06/18 History of Present Illness Admission Date/PCP: 05/02/18 19:33 DIANE ROBLES MD History of Present Illness: YSABEL CHEEMA is a 87 year old female This is a 87-year-old female currently admitting in the hospital because of the weakness and an acute stroke and the patient have a history of the sudden blindness 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 seen by the neuro- contracting executive at [facility] patient was on a long dose of the steroid and was tapering with the nonconclusive biopsy of the temporal artery was discharged in a nursing facility last week According to the family until Thursday patient was doing good and in patients and not eating not drinking much not feeling well and the patient's have a lab work done was calcium was 12.2 and patient was very altered mental status and brought to the emergency department Patient also under acute renal failure and chronic kidney disease and the patient initial workup otherwise all stable except patient PCO2 is very high Patient initially put on the BiPAP in the ER and PCO2 is coming down to the 50 Have a significant dementia and worsening since last 6-month Patient seen and examined in the emergency department and discussed with the son regarding the patient's current condition with ongoing problems with poor p.o. 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 intake Patient still crying episode significant worsening dementia and at this point very extensive discussions with the patient's family including the all the 3 sonsRegarding the patient's current conditions with the worsening dementia and multiple complications and the patient's at this point put on the comfort and hospice care Physical Exam Vital Signs: Temp Pulse Resp BP Pulse Ox 99.2 F 84 15 124/55 L 98 05/06/18 00:30 05/06/18 00:30 05/06/18 00:30 05/06/18 00:30 05/06/18 02:13 Intake & Output 05/05/18 05/06/18 05/07/18 06:59 06:59 06:59 Intake Total 2302 908 Output Total 1650 900 Balance 652 8 Weight 56.1 kg 60.5 kg General appearance: PRESENT: no acute distress Head exam: PRESENT: atraumatic, normocephalic Eye exam: PRESENT: conjunctiva pink, EOMI, PERRLA. ABSENT: scleral icterus Ear exam: PRESENT: normal external ear exam Mouth exam: PRESENT: moist, tongue midline Neck exam: ABSENT: carotid bruit, JVD, lymphadenopathy, thyromegaly Respiratory exam: PRESENT: clear to auscultation darryl. ABSENT: rales, rhonchi, wheezes Cardiovascular exam: PRESENT: RRR. ABSENT: diastolic murmur, rubs, systolic murmur Pulses: PRESENT: normal dorsalis pedis pul Vascular exam: PRESENT: normal capillary refill GI/Abdominal exam: PRESENT: normal bowel sounds, soft. ABSENT: distended, guarding, mass, organolmegaly, rebound, tenderness Rectal exam: PRESENT: deferred Extremities exam: PRESENT: full ROM. ABSENT: calf tenderness, clubbing, pedal edema Neurological exam: PRESENT: alert, altered, awake. ABSENT: motor sensory deficit Psychiatric exam: PRESENT: appropriate affect, normal mood. ABSENT: homicidal ideation, suicidal ideation Skin exam: PRESENT: dry, intact, warm. ABSENT: cyanosis, rash Results Laboratory Results: 05/05/18 04:12 05/06/18 04:39 05/06/18 04:39 Sodium 140.1 Potassium 3.8 Chloride 102 Carbon Dioxide 29 Anion Gap 9 BUN 30 H Creatinine 1.38 H Est GFR ( Amer) 44 L Est GFR (Non-Af Amer) 36 L Glucose 164 H Calcium 10.7 H 05/03/18 04:54 NT-Pro-B Natriuret Pep 1410 H Impressions: Chest X-Ray 05/02/18 15:39 IMPRESSION: Similar opacity at the right costophrenic angle. Slight increased opacity at the left costophrenic angle, possibly subsegmental atelectasis-small pleural effusion. Head CT 05/02/18 15:39 IMPRESSION: No acute intracranial findings. EVIDENCE OF ACUTE STROKE: NO. Transfer Plan - Time Spent with Patient Time spent with patient: Greater than 30 Minutes Qualifiers - * PATIENT BEING DISCHARGED WITH ANY OF THE FOLLOWING DIAGNOSIS: No VTE patient discharged on overlapping Therapy?: Yes Plan Time Spent: Greater than 30 Minutes - As above as per discussed with the family patient is going for the hospice and comfort care With a significant worsening dementia failure to thrive and the patient's recurrent urinary tract infections due to the dehydration's increasing the risk of the renal failure causing more complications I think patient's life expectancy is less than 6 monthsIs appropriate for the hospice and comfort care
[2018-05-06] MEDS: SITAGLIPTIN PHOSPHATE 25 MG TABLET PO SCH (11:53)
[2018-05-06] MEDS: DOCUSATE SODIUM 100 MG/10 ML UDC PO SCH ×2 (11:53→17:06)
[2018-05-06] MEDS: AMLODIPINE BESYLATE 2.5 MG TABLET PO SCH ×2 (11:53→22:24)
[2018-05-06] MEDS: METOPROLOL TARTRATE 25 MG TABLET PO SCH ×2 (11:54→22:24)
[2018-05-06] MEDS: FUROSEMIDE INJ/PF 20 MG/2 ML SDV IV SCH (11:55)
[2018-05-06] MEDS: FAMOTIDINE 20 MG TABLET PO SCH (11:55)
[2018-05-06] MEDS: ENOXAPARIN SODIUM INJ 30 MG/0.3 ML DISP.SYRIN SUBCUT SCH (11:56)
[2018-05-06] MEDS: ESCITALOPRAM OXALATE 10 MG TABLET PO SCH (17:07)
[2018-05-06] MEDS: ATORVASTATIN CALCIUM 20 MG TABLET PO SCH (22:24)
[2018-05-07] MEDS: TRAMADOL HCL 50 MG TABLET PO PRN ×2 (02:10→18:50)
[2018-05-07] MEDS: 1/2 NORMAL SALINE 1,000 ML IV PRN (02:10)
[2018-05-07] MEDS: AMOXICILLIN TRIHYDRATE 500 MG CAPSULE PO SCH ×2 (05:54→13:31)
[2018-05-07 06:10] LABS: ANION GAP 8 (5-19); BLOOD UREA NITROGEN 24 mg/dL (7-20); CALCIUM 9.8 mg/dL (8.4-10.2); CARBON DIOXIDE 33 mmol/L (22-30); CHLORIDE 99 mmol/L (98-107); GLUCOSE 103 mg/dL (75-110); POTASSIUM 3.9 mmol/L (3.6-5.0); SODIUM 140.2 mmol/L (137-145)
[2018-05-07] MEDS: CHOLECALCIFEROL (D3) 1,000 UNIT TABLET PO SCH (08:01)
[2018-05-07] MEDS: ASPIRIN 325 MG TABLET, ENT COATED PO SCH (08:02)
[2018-05-07] MEDS: DOCUSATE SODIUM 100 MG/10 ML UDC PO SCH ×2 (10:18→17:42)
[2018-05-07] MEDS: FAMOTIDINE 20 MG TABLET PO SCH (10:19)
[2018-05-07] MEDS: METOPROLOL TARTRATE 25 MG TABLET PO SCH (10:19)
[2018-05-07] MEDS: AMLODIPINE BESYLATE 2.5 MG TABLET PO SCH (10:19)
[2018-05-07] MEDS: SITAGLIPTIN PHOSPHATE 25 MG TABLET PO SCH (10:19)
[2018-05-07] MEDS: FUROSEMIDE INJ/PF 20 MG/2 ML SDV IV SCH (10:20)
[2018-05-07] MEDS: ENOXAPARIN SODIUM INJ 30 MG/0.3 ML DISP.SYRIN SUBCUT SCH (10:21)
[2018-05-07] MEDS: ACETAMINOPHEN 325 MG TABLET PO PRN (11:30)
[2018-05-07 15:32] VITALS: BP 114/82
[2018-05-07] MEDS: ESCITALOPRAM OXALATE 10 MG TABLET PO SCH (17:40)
--- NOTE | 2018-05-08 15:47 | PDOC PROGRESS REPORT ---
Subjective Progress Note for:: 05/04/18 Subjective:: Patient doing generally better physically but still has underlying confusion. I am told by the nurses that patient is not on a heart monitor. Reason For Visit: HYPERCALCIUMIA,AMS,UTI,RENAL FAILURE Physical Exam Vital Signs: Temp Pulse Resp BP Pulse Ox 98.3 F 84 18 146/60 H 99 05/04/18 08:00 05/04/18 08:10 05/04/18 08:10 05/04/18 08:00 05/04/18 08:10 Intake & Output 05/03/18 05/04/18 05/05/18 06:59 06:59 06:59 Intake Total 338 2149 Output Total 380 800 Balance -42 1349 Weight 56.2 kg 58.2 kg Exam: GENERAL: well-nourished and in no acute distress. Patient is alert but not oriented to place time or person. HEAD: Atraumatic, normocephalic. EYES: sclera anicteric, conjunctiva are normal. ENT: TMs normal, nares patent, oropharynx clear without exudates. Moist mucous membranes. No oral ulcerations or bleeding gums noted NECK: supple without lymphadenopathy or JVD. Trachea is central. No cervical or axillary lymphadenopathy noted. Carotids are 2+ LUNGS: Breath sounds bibasilar fine crackles at bases. No significant dullness noted. CHEST: Palpation of chest wall shows no significant chest wall tenderness. HEART: [place] PRACTICAL NURSE CLINICAL COORDINATOR, No PSH, 2/6 TESSY aortic area, 1/6 watts systolic murmur mitral area, rubs or gallops. ABDOMEN: Soft, no significant tenderness appreciated, normoactive bowel sounds. No guarding, no rebound. No rigidity noted . No masses appreciated. EXTREMITIES: Pedal pulses are 1-2+, no calf tenderness noted, Trace + pedal edema noted. No clubbing or cyanosis. NEUROLOGICAL: Patient is alert but is not able to participate in neurological exam because of patient's current mental status PSYCH: Patient cannot participate in a neurologic and psych exam because of the patient's current mental status SKIN: No significant ecchymosis, rash, ulcerations or signs of pruritus noted. MUSCULOSKELETAL EXAM: No significant joint swelling noted. Results Laboratory Results: 05/04/18 05:56 05/04/18 05:56 05/04/18 05/04/18 05/04/18 05:56 05:56 05:56 WBC 10.3 RBC 3.11 L Hgb 9.7 L Hct 28.6 L MCV 92 MCH 31.2 MCHC 33.9 RDW 14.6 H Plt Count 163 Seg Neutrophils % Not Reportable Lymphocytes % Not Reportable Monocytes % Not Reportable Eosinophils % Not Reportable Basophils % Not Reportable Absolute Neutrophils Not Reportable Absolute Lymphocytes Not Reportable Absolute Monocytes Not Reportable Absolute Eosinophils Not Reportable Absolute Basophils Not Reportable Carbonic Acid HCO3/H2CO3 Ratio ABG pH ABG pCO2 ABG pO2 ABG HCO3 ABG O2 Saturation ABG Base Excess FiO2 Sodium Potassium Chloride Carbon Dioxide Anion Gap BUN Creatinine Est GFR ( Amer) Est GFR (Non-Af Amer) Glucose Calcium Magnesium 1.9 PTH Intact 22.9 05/04/18 05/04/18 05:56 08:10 WBC RBC Hgb Hct MCV MCH MCHC RDW Plt Count Seg Neutrophils % Lymphocytes % Monocytes % Eosinophils % Basophils % Absolute Neutrophils Absolute Lymphocytes Absolute Monocytes Absolute Eosinophils Absolute Basophils Carbonic Acid 1.23 HCO3/H2CO3 Ratio 24:1 ABG pH 7.49 H ABG pCO2 40.7 ABG pO2 164.0 H ABG HCO3 30.0 H ABG O2 Saturation 99.2 H ABG Base Excess 6.1 FiO2 2L Sodium 146.1 H Potassium 3.9 Chloride 107 Carbon Dioxide 29 Anion Gap 10 BUN 32 H Creatinine 1.44 H Est GFR ( Amer) 42 L Est GFR (Non-Af Amer) 35 L Glucose 115 H Calcium 10.2 Magnesium PTH Intact 05/03/18 04:54 NT-Pro-B Natriuret Pep 1410 H EKG Comments: Sinus rhythm, no significant cardiac dysrhythmia noted. Patient being taken off hall monitor. Impressions: Chest X-Ray 05/02/18 15:39 IMPRESSION: Similar opacity at the right costophrenic angle. Slight increased opacity at the left costophrenic angle, possibly subsegmental atelectasis-small pleural effusion. Head CT 05/02/18 15:39 IMPRESSION: No acute intracranial findings. EVIDENCE OF ACUTE STROKE: NO. Assessment & Plan - Diagnosis (1) Altered mental state Qualifiers: Altered mental status type: disorientation Qualified Code(s): R41.0 - Disorientation, unspecified Is this a current diagnosis for this admission?: Yes (2) Cerebrovascular disease Is this a current diagnosis for this admission?: Yes (3) Dementia Qualifiers: Dementia type: vascular dementia Dementia behavioral disturbance: with behavioral disturbance Qualified Code(s): F01.51 - Vascular dementia with behavioral disturbance Is this a current diagnosis for this admission?: Yes (4) Hypercalcemia Is this a current diagnosis for this admission?: Yes (5) Chronic kidney disease Qualifiers: Chronic kidney disease stage: stage 3 (moderate) Qualified Code(s): N18.3 - Chronic kidney disease, stage 3 (moderate) (6) Hypertension Qualifiers: Hypertension type: essential hypertension Qualified Code(s): I10 - Essential (primary) hypertension Is this a current diagnosis for this admission?: Yes - Notes Notes: Patient remains mostly confused. She is lethargic. However there is some improvement from yesterday. Patient is blind in the right eye but left eye vision is noted to be grossly intact. No new recommendations from cardiac standpoint. Do not feel patient will be a candidate for any aggressive cardiac intervention. Previous 2D echo results were reviewed. Altered mental status: There are multiple diagnosis that can be considered for mental status changes. Possibly related to medications, dementia, changes in surroundings, other metabolic issues. Cerebrovascular accident: Patient is suspected to have this. At this point, patient previous echocardiogram was reviewed. Recommend continuing monitoring for any cardiac dysrhythmia. Do not feel patient is a candidate for nuclear stress testing at this point. We will continue to follow expectantly. Chronic kidney disease: Continue monitoring renal functions closely. Will avoid hydration and nephrotoxic agents. Essential hypertension: Recommend liberal control. Would not exchange operator unless blood pressure consistently above 150 mmHg in view of stroke being considered. Hypercalcemia: Exact etiology not clear but currently being evaluated by the business management analyst. Recommend to avoid any dehydration. Patient is debilitated and quite elderly therefore prognosis is guarded. Patient's son is the surrogate decision maker. - Time Time with patient: 15-25 minutes - CODE STATUS : was discussed, patient remains DO NOT RESUSCITATE. Surrogate decision-maker patient's son. Multiple medical problems were addressed. More than 50% of the time spent coordinating care, discussing management plans with involved caregivers. Management plans discussed with involved personnels. Medical decision making was of moderate to high complexity, patient's has multiple comorbidities. Medications reviewed and adjusted accordingly: Yes
== END 2018-05-07 19:35 | DRG 64 ==
LOC: ER 14:49 → EH 19:33 → 5 21:27
PROVIDERS: ADMIT Family Medicine; ATTEND Family Medicine
PROC: 5A09457 Assistance with Respiratory Ventilation, 24-96 Consecutive Hours, Continuous Positive Airway Pressure (ICD-10-PCS; principal; 2018-05-02)
PROC: 3E0F73Z Introduction of Anti-inflammatory into Respiratory Tract, Via Natural or Artificial Opening (ICD-10-PCS; 2018-05-03)
DX: I63.9 Cerebral infarction, unspecified (principal); J96.22 Acute and chronic respiratory failure with hypercapnia; N17.9 Acute kidney failure, unspecified; N39.0 Urinary tract infection, site not specified; H46.9 Unspecified optic neuritis; F01.51 Vascular dementia, unspecified severity, with behavioral disturbance; Z66 Do not resuscitate; E83.52 Hypercalcemia; E86.0 Dehydration; M19.90 Unspecified osteoarthritis, unspecified site; R62.51 Failure to thrive (child); H54.7 Unspecified visual loss; M31.6 Other giant cell arteritis; N18.3 Chronic kidney disease, stage 3 (moderate); I12.9 Hypertensive chronic kidney disease with stage 1 through stage 4 chronic kidney disease, or unspecified chronic kidney disease; E11.22 Type 2 diabetes mellitus with diabetic chronic kidney disease; K21.9 Gastro-esophageal reflux disease without esophagitis; R53.1 Weakness; H54.61 Unqualified visual loss, right eye, normal vision left eye; F32.9 Major depressive disorder, single episode, unspecified; Z79.899 Other long term (current) drug therapy; Z79.82 Long term (current) use of aspirin
CPT/HCPCS: 36415; 36600; 51701; 51702; 70450; 71045; 80048; 80053; 80061; 81001; 82140; 82330; 82397; 82533; 82803; 82962; 83036; 83605; 83735; 83880; 83970; 84166; 84484; 85025; 85610; 86320; 87040; 87086; 87088; 87186; 93005; 93010; 94660; 96361; 96365; 99285; G8978-GP; G8979-GP; J0696; J1650; J1940; J3480; J7030